=== PATIENT | female | born 1950 | race Caucasian/White ===

== ENCOUNTER → 2021-05-26 12:53 | Outpatient (CLI) | payer MEDICARE, SELFPAY ==
--- NOTE | ~2021-05-26 | CT_ITS ---
EXAMINATION: CT diagnostic chest wo con DATE: 05/26/2021 13:11 INDICATION: Solitary pulmonary nodule, prior smoker TECHNIQUE: Computed tomography (CT) of the chest was performed without intravenous contrast. The dose -length product (DLP) was 108.09 mGy-cm. Automated exposure control and iterative reconstruction tech nique were employed. COMPARISON: None FINDINGS: There is a 5 mm nodule of the left lower lobe. Mild emphysema is noted. The lungs are free of acute airspace opacities. There is no pleural effusion or pneumothorax. No pathologically enlarged thoracic lymph nodes are identified. The heart size is normal. There is a small sliding hiatal herni a. The gallbladder is surgically absent. There is severe lower thoracic spondylosis. IMPRESSION: 1. 5 mm nodule of the left lower lobe. No prior examination is available for comparison to assess int erval change. If no priors are available, follow-up CT in 12 months should be considered. Reviewed, dictated and finalized at location B. 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 5 mm nodule of the left lower lobe. No prior examination is available for co mparison to assess interval change. If no priors are available, follow-up CT in 12 months should be considered.
== END ==
PROVIDERS: PCP Internal Medicine; Visit Provider Internal Medicine
DX: M85.80 Other specified disorders of bone density and structure, unspecified site (principal); R91.1 Solitary pulmonary nodule
CPT/HCPCS: 71250

== ENCOUNTER → 2021-07-09 11:51 | Outpatient (CLI) | payer MEDICARE, SELFPAY ==
--- NOTE | ~2021-07-09 | DEXA_ITS ---
Bone Density Report Name: NILSA CHAVARRIA Age: 71 Sex: Female Ethnicity: White Date of : 1950 Indication: postmenopausal; screening for osteoporosis; prior fracture; hysterectomy; Referring Provider: RIGO, CHARISMA Study: Bone densitometry was performed. Exam Date: July 09, 2021 Accession number: [id number] Bone Density: Region BMD T-score Z-score Classification AP Spine (L1-L4) 1.009 -0.3 1.8 Normal Femoral Neck (Left) 0.823 -0.2 1.6 Normal Total Hip (Left) 0.945 0.0 1.5 Normal Femoral Neck (Right) 0.897 0.4 2.2 Normal Total Hip (Right) 0.869 -0.6 0.9 Normal Total Hip Mean 0.907 -0.3 1.2 Normal World Health Organization criteria for BMD impression classify patients as: Normal (T-score at or above -1.0), Osteopenia (T-score between -1.0 and -2.5), or Osteoporosis (T-score at or below -2.5). 10-year Fracture Risk: FRAX not reported because: All T-scores for Spine Total, Hip Total, Femoral Neck at or above -1.0 Clinical Information Provided by Patient: Has had a low trauma fracture Has used the following medications: Vitamin D, Calcium Has the following medical conditions: Hysterectomy Patient maximum height was 66.5 Menopause Age: 41 No regular weight bearing exercise Does not regularly consume dairy products Drinks caffeinated beverages Onset of menses at age 17 Number of children 3 Impression: The patient has normal bone mass. The patient has risk factors, including: previous fracture. Discussion: BONE DENSITY IS ABOVE THE MINIMUM DESIRABLE LEVEL AT ALL SKELETAL SITES TESTED. This patient?s bone mineral density is above the minimum desirable level (T-score -1.0 or better) at all sites measured. The patient should follow a healthful lifestyle (good nutrition with adequate calcium and vitamin D, and appropriate weight-bearing exercise). Follow-Up: Consider repeating this study in 5 years or sooner if there is some new clinical indication. Reported by: [facility] on 07/09/2021 12:23:00 PM. Reviewed, dictated and finalized at location AJe ASTUDILLO
== END ==
PROVIDERS: PCP Internal Medicine; Visit Provider Internal Medicine
DX: Z78.0 Asymptomatic menopausal state (principal); R91.1 Solitary pulmonary nodule
CPT/HCPCS: 77080

== ENCOUNTER → 2022-02-11 14:12 | Outpatient (CLI) | payer MEDICARE, SELFPAY ==
--- NOTE | ~2022-02-11 | CT_ITS ---
EXAMINATION: CT abdomen pelvis wo con DATE: 02/11/2022 14:37 INDICATION: Abdominal pain. Lower abdominal pain. Diarrhea. History of hysterectomy. TECHNIQUE: Computed tomography (CT) of the abdomen and pelvis was performed without intravenous contr ast. Automated exposure control and iterative reconstruction technique were employed. Exam dose: 844 .48 mGy-cm total exam DLP. COMPARISON: None. FINDINGS: The lung bases are clear. Normal heart size. No pericardial or pleural effusion. Status post cholecystectomy. No hepatic, splenic, pancreatic, and adrenal or renal space-occupying ma ss lesion is detected. No bile duct or pancreatic duct dilatation. No urinary tract calculus or hydro ureteronephrosis. There is atherosclerotic calcification of the abdominal aorta and at the origins of the celiac and ly perior mesenteric and renal arteries. No abdominal aortic aneurysm. No intraperitoneal or retroperito pushpa or pelvic mass lesion or adenopathy or ascites. There are innumerable diverticula of the sigmoid and to a lesser extent descending colon; no CT evide nce of diverticulitis. Status post appendectomy. No bowel obstruction, significant abnormal bowel wall thickening, pneumatos is or intraperitoneal free air is noted. Status post hysterectomy. The urinary bladder is unremarkable Mild bilateral fat-containing inguinal hernias. Degenerative changes of the thoracic and lumbar spine including particularly severe degenerative disc disease at T11-12. No suspicious osteolytic or osteoblastic lesions. IMPRESSION: Status post cholecystectomy, appendectomy and hysterectomy Diverticulosis of the left colon; no CT evidence of diverticulitis Reviewed, dictated and finalized at Location A. Reviewed, dictated and finalized at location B.
== END ==
PROVIDERS: PCP Internal Medicine; Visit Provider Internal Medicine
DX: R10.9 Unspecified abdominal pain (principal); K57.30 Diverticulosis of large intestine without perforation or abscess without bleeding; Z90.49 Acquired absence of other specified parts of digestive tract
CPT/HCPCS: 74176

== ENCOUNTER 2023-04-07 17:55 | Emergency (ER) | payer MEDICARE, SELFPAY ==
[2023-04-07 18:01] VITALS: BP 207/109; PULSE 79; RESP 18; TEMP 37.2; O2SAT 97
--- NOTE | 2023-04-07 18:51 | ECG_ITS ---
Measurements Intervals [place] Rate: 66 P: 46 [place]: 216 QRS: -10 QRSD: 106 T: 20 QT: 406 QTc: 427 Interpretive Statements SINUS RHYTHM WITH FIRST DEGREE AV BLOCK POSSIBLE LEFT ATRIAL ENLARGEMENT INCOMPLETE RIGHT BUNDLE BRANCH BLOCK DELAYED PRECORDIAL R/S TRANSITION BORDERLINE ECG NO PREVIOUS ECG AVAILABLE FOR COMPARISON Electronically Signed On 04-08-2023 6:16:36 CDT by Jamal Herrera D.O.
[2023-04-07 19:03] VITALS: BP 198/95; PULSE 64; RESP 16; O2SAT 99
--- NOTE | 2023-04-07 19:09 | PC.NURSE ---
This RN assumed care of patient. This RN took patient report from KEYONA Moran.
[2023-04-07 19:15] VITALS: O2SAT 99
[2023-04-07 19:34] VITALS: O2SAT 95
[2023-04-07 19:45] VITALS: O2SAT 99
--- NOTE | 2023-04-07 19:45 | ED.RECABL ---
HPI - Recheck/Abnormal Lab/Rx General Chief Complaint: Recheck/Abnormal Lab/Rx Stated Complaint: htn Time Seen by Provider: 04/07/23 19:12 Source: patient and family () Limitations: no limitations History of Present Illness HPI narrative: Patient has a 72-year-old female presented to the emergency department for elevated blood pressure. Patient also she was at her dentist's office today when she was told her blood pressure was high and this was for routine cleaning and was told that it was in the 200/100. Patient was the doctor or primary care physician was told to come in to emergency for further evaluation. Patient notes that she switched doctors approximately 8 months ago and at that time they stopped her on a thiazide diuretic and she is unsure as to what she signed the past but thinks it may have been chlorthalidone or hydrochlorothiazide patient says she does not take her blood pressure at home on a regular basis and she has been otherwise taking all her medication as prescribed in which she takes telmisartan. Patient denies any recent illness, injuries, chest pain, shortness of breath, lower extremity swelling, hematuria, decreased urine production, vision changes, confusion. Patient notes that she has overall been feeling well bone was told to come in by her primary care physician and did not feel anything of the ordinary at her dentist's office today when she was told her blood pressure was high. Patient notes that she was previously on thiazide diuretic and was taken off it because it made her urinate a lot. Related Data Home Medications Medication Instructions Recorded Confirmed atorvastatin 40 mg tablet 40 mg PO DAILY 10/19/22 chlorthalidone 25 mg tablet 25 mg PO DAILY 10/19/22 citalopram 20 mg tablet 20 mg PO DAILY 10/19/22 potassium chloride 10 mEq 10 meq PO DAILY 10/19/22 tablet,extended release (Klor-Con) telmisartan 40 mg tablet 40 mg PO DAILY 10/19/22 trazodone 50 mg tablet 50 mg PO QHS PRN 10/19/22 zinc acetate 50 mg (zinc) capsule 50 mg PO DAILY 10/19/22 (Galzin) Allergies Allergy/AdvReac Type Severity Reaction Status Date / Time No Known Allergies Allergy Unverified 10/19/22 09:44 Review of Systems Review of Systems: A 10 system review of systems was completed on the patient and is negative except for what is stated in the HPI. Nursing and ancillary documentation was reviewed. [facility] Past Medical History Medical History (Updated 04/08/23 @ 00:00 by Ino Ge) History of vaginal delivery x2 Hyperlipidemia Hypertension Surgical History Surgical History (Updated 10/19/22 @ 10:08 by Cheri Jones MA) H/O: hysterectomy History of breast surgery History of section x1 History of cholecystectomy Family History Family History (Updated 10/19/22 @ 09:53 by Cheri Jones MA) Father Alcoholism Mother Hypertension Depression Heart disease Social History Social History (Updated 10/19/22 @ 10:08 by Cheri Jones MA) Smoking status: Current every day smoker (vapes) Tobacco type: e-cigarettes/vaping Additional smoking assessment comments: she is a former cigarette smoker Alcohol intake: current Substance use: current Lack of Transportation: No Lack of Food: Never True Current Housing: I Have Housing Concerned About Future Housing: No Difficulty Paying Gas/Electric Bills: No Difficulty Paying for Meds: No Currently Unemployed: YES Education: High School Diploma/GED Living arrangements: with family Occupation/Education: retired Gender identity (if verbalized by the patient): Female Sexual Orientation (if Verbalized by the Patient): Straight or Heterosexual Spiritual care concerns: No Comments At time of signature, I have reviewed and agree with nursing past medical, surgical, social and family history unless otherwise noted. Please see the nursing chart for further information. There is no rele
[2023-04-07] MEDS: CHLORTHALIDONE 25 MG TABLET PO (20:05)
[2023-04-07 20:10] VITALS: BP 191/93
== END 2023-04-07 20:12 | disposition home or self-care (01) ==
PROVIDERS: Emergency Provider Student in an Organized Health Care Education/Training Program; PCP Physician Assistant
DX: I10 Essential (primary) hypertension (principal); E78.5 Hyperlipidemia, unspecified; F17.290 Nicotine dependence, other tobacco product, uncomplicated; Z90.710 Acquired absence of both cervix and uterus; Z90.49 Acquired absence of other specified parts of digestive tract; I44.0 Atrioventricular block, first degree; R94.31 Abnormal electrocardiogram [ECG] [EKG]; I45.10 Unspecified right bundle-branch block
CPT/HCPCS: 93005; 99283; A9270

== ENCOUNTER → 2023-06-27 12:45 | Outpatient (CLI) | payer MEDICARE, SELFPAY ==
--- NOTE | ~2023-06-27 | CT_ITS ---
CT Scan of the Chest without Contrast: Clinical Indication: Lung cancer screening, history of smoking Technique: Contiguous sections were acquired throughout the chest without intravenous contrast. Dose reduction technique was used on this scan by utilizing automated exposure control and iterative recon struction technique. The dose-length product (DLP) was 131.03 mGy-cm. COMPARISON: 05/26/2021 Findings: There is no evidence of any significant mediastinal, hilar or axillary lymphadenopathy. The mediastin al soft tissues appear normal. There is no evidence of pleural or pericardial effusion. Stable 5 mm nodule in the posterior medial left lower lobe (axial image 63). Images through the upper abdomen reveal no abnormalities. Impression: Lung RADS 2: Benign appearance. 12 month follow-up screening CT advised. Reviewed, dictated and finalized at location . 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 12 month follow-up screening CT advised.
== END ==
PROVIDERS: PCP Physician Assistant; Visit Provider Physician Assistant
DX: Z12.2 Encounter for screening for malignant neoplasm of respiratory organs (principal); Z87.891 Personal history of nicotine dependence
CPT/HCPCS: 71271

== ENCOUNTER 2024-09-04 11:17 | Emergency (ER) | payer MEDICARE, SELFPAY ==
--- NOTE | ~2024-09-04 | XR_ITS ---
EXAMINATION: XR chest 2V DATE: 09/04/2024 12:22 INDICATION: Chest and jaw pain TECHNIQUE: frontal and lateral views of the chest were obtained. COMPARISON: Chest CT dated 06/17/2023 FINDINGS: Unchanged mild linear atelectasis/scarring at the lingula and basilar right lower lobe. No new airspa ce opacities, pulmonary edema, pleural effusion or pneumothorax. The cardiomediastinal silhouette is normal. Cholecystectomy clips in the right upper quadrant.20 degrees lower thoracic levoscoliosis wit h moderate to severe spondylosis. IMPRESSION: 1. Unchanged mild discoid atelectasis/scarring at the lingula and right lower lobe. No acute cardiopu lmonary disease. Reviewed, dictated and finalized at location A. [facility] IMPRESSION: 1. Unchanged mild discoid atelectasis/scarring at the lingula and right lower l obe. No acute cardiopulmonary disease.
--- NOTE | 2024-09-04 11:18 | ECG_ITS ---
Test Date: 2024-09-04 11:33:03 Measurements Intervals [place] Rate: 80 P: 34 [place]: 196 QRS: -28 QRSD: 102 T: -4 QT: 359 QTc: 415 Interpretive Statements SINUS RHYTHM POSSIBLE LEFT ATRIAL ENLARGEMENT CANNOT R/O SEPTAL INFARCT, AGE INDETERMINATE BORDERLINE T WAVE ABNORMALITY- INFERIOR LEADS BASELINE ARTIFACT- I, II, III, AVR, AVL, AVF ABNORMAL ECG No previous ECG available for comparison Electronically Signed On 09-04-2024 12:05:17 REVENUE SPECIALIST by Jamal Herrera D.O.
--- OUTSIDE RECORDS SUMMARY | 2024-09-04 11:21 | XMS_ITS | Referral Summary ---
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 Role Phone 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 DIRECTOR BIOINFORMATICS Primary Care Provider [phone] Encounters Date Type Department Care Team Description 08/01/2024 1:05 PM [facility] Lab [facility] [address] [place] [id number] Mixed hyperlipidemia; Primary hypertension 08/01/2024 12:30 PM [facility] Office Visit [facility] [address] [place] [address] [address] [place] [address] 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, HUMBERTO Medicare annual wellness visit, subsequent (Primary Dx); Primary hypertension; Mixed hyperlipidemia; Generalized anxiety disorder; Vitamin D deficiency; Gastroesophageal reflux disease, unspecified whether esophagitis present; Vaping nicotine dependence, tobacco product; Postmenopausal 06/25/2024 3:38 PM [facility] - 06/25/2024 11:59 PM [facility] Hospital Encounter [facility] [address] [place] [address] [address] [place] [address] Screening mammogram, encounter for Discharge Disposition: Discharge to home or self care from Last 3 Months Allergies Active Allergy Reactions Criticality Noted Date Comments Adhesive Blisters High 07/31/2019 Latex Swelling Medium 12/30/2022 Medications aspirin 81 mg enteric coated tablet 1 tablet (81 mg total) 5 Active cholecalciferol (VITAMIN D-3) 1,000 unit capsule Take 1 capsule every day by oral route. 6 Active glucosamine sulfate 500 mg tablet Take by mouth Active ZINC ORAL Take by mouth Active ferrous sulfate (IRON ORAL) Take by mouth Active chlorthalidone (HYGROTON) 25 mg tabletIndications:P rimary hypertension Take 1 tablet (25 mg total) by mouth daily 4 12/15/19 25 Active potassium chloride ER (KLOR-CON) 10 mEq CR tabletIndications:P rimary hypertension Take 1 tablet/capsu le (10 mEq total) by mouth daily 4 Active traZODone (DESYREL) 50 mg tabletIndications:G eneralized anxiety disorder Take 1 tablet (50 mg total) by mouth nightly 4 Active citalopram (CeleXA) 20 mg tabletIndications:G eneralized anxiety disorder Take 1 tablet (20 mg total) by mouth daily 90 tablet 1 4 Active atorvastatin (LIPITOR) 40 mg tabletIndications:M ixed hyperlipidemia Take 1 tablet (40 mg total) by mouth daily 90 tablet 1 4 Active telmisartan (MICARDIS) 40 mg tabletIndications:P rimary hypertension Take 1 tablet (40 mg total) by mouth daily 90 tablet 1 4 Active Active Problems Problem Noted Date Diagnosed Date Vaping nicotine dependence, tobacco product 07/18 Assessment & Plan (08/03/2024 5:03 PM [facility]): Chronic, patient not interested in quitting at this time. Last chest CT completed in 09/2019, no pulmonary nodule noted at that time. Patient is not interested in repeat chest CT at this time. Medicare annual wellness visit, subsequent 06/14 Assessment & Plan (08/03/2024 5:07 PM [facility]): CBC, CMP, lipid panel ordered. Mammogram last completed: 06/2024 DEXA ordered. Colonoscopy last completed: 05/2021 repeat in 05/2031 Vaccinations: COVID, Shingrix, Prevnar, Pneumovax, and Flu vaccines UTD. Repeat wellness exam in one year. Assessment & Plan (06/16/2023 2:29 PM [facility]): Healthcare maintenance updated Assessment & Plan (06/14/2022 1:30 PM [facility]): Healthcare maintenance updated Generalized anxiety disorder 06/14/2022 Assessment & Plan (08/03/2024 5:05 PM [facility]): Chronic, controlled with Celexa 20 mg daily. Follow up yearly. Assessment & Plan (12/14/2023 6:37 AM CDT): This appears to be well controlled, continue current meds, follow-up routine Assessment & Plan (06/16/2023 2:28 PM [facility]): This appears to be well controlled, continue current meds, follow-up routine Assessment & Plan (12/30/2022 10:37 AM CDT): This is well controlled with no HI SI will continue to follow Assessment & Plan (07/01/2022 11:48 AM [facility]): Well controlled Assessment & Plan (06/14/2022 1:29 PM [facility]): This is well controlled with no SI HI, continue current meds follow-up routine Primary hypertension 06/14/2022 Assessment & Plan (08/01/2024 12:41 PM [facility]): Chronic, controlled. Patient to continue Micardis 40 mg chlorthalidone 25 mg daily. Follow up yearly. Assessment & Plan (12/14/2023 6:37 AM CDT): This is a stable chronic condition. Monitor blood pressure, call if out of parameters as we discussed. Low sodium and caffeine diet. baby asa as discussed if applicable. Diet, exercise and weight reduction. Labs as ordered. F/U routine Assessment & Plan (06/16/2023 2:28 PM [facility]): This is not controlled and after reviewing the records and talking to the patient there may have been some confusion on which meds and how much to take. We included her on the telephone and we reviewed this I wrote down exactly how she is supposed to take her med she is going to monitor her blood pressure and give me an update in a couple weeks. She is going to send her blood pressure monitor in with her during his appointment so we can check it out Assessment & Plan (04/08/2023 8:25 PM CDT): - uncontrolled - continue telmisartan - will have pt start chlorthalidone as rec by ER yesterday but will cut dose to 12.5mg daily and monitor BP, if not staying below 150 SBP will increase to 25mg daily - f/u in 1 mo or sooner prn Assessment & Plan (12/30/2022 10:38 AM CDT): This is a stable chronic condition. Monitor blood pressure, call if out of parameters as we discussed. Low sodium and caffeine diet. baby asa as discussed if applicable. Diet, exercise and weight reduction. Labs as ordered. F/U routine Assessment & Plan (07/01/2022 11:49 AM [facility]): Images from the original note were not included. This is a stable chronic condition. Monitor blood pressure, call if out of parameters as we discussed. Low sodium and caffeine diet. baby asa as discussed if applicable. Diet, exercise and weight reduction. Labs as ordered. F/U routine Assessment & Plan (06/14/2022 1:30 PM [facility]): Patient has no history of heart failure and does not have any issues with Edema. She is on 2 different diuretics and complains that she can not leave the house all morning due to having to go to the restroom. I am going to hold her Lasix get new labs she will monitor her blood pressure and I will adjust meds as needed. Mixed hyperlipidemia 06/14/2022 Assessment & Plan (08/03/2024 5:05 PM [facility]): Chronic, controlled. Patient to continue on atorvastatin 40 mg daily and low fat diet. Patient encouraged to begin daily exercise. Follow up yearly. Lab Results Component Value Date CHOL 164 08/01/2024 CHOL 158 12/15/2023 CHOL 157 06/06/2023 Lab Results Component Value Date HDL 60 08/01/2024 HDL 60 12/15/2023 HDL 57 06/06/2023 Lab Results Component Value Date LDLCALC 92 08/01/2024 LDLCALC 73 12/15/2023 LDLCALC 87 06/06/2023 Lab Results Component Value Date TRIG 61 08/01/2024 TRIG 127 12/15/2023 TRIG 65 06/06/2023 Assessment & Plan (12/14/2023 6:37 AM CDT): Patient is to continue present medications, work on diet and exercise as discussed, we did discuss the medications and potential side effects and signs and symptoms that would warrant calling office. Follow up routine. Assessment & Plan (12/30/2022 10:38 AM CDT): Patient is to continue present medications, work on diet and exercise as discussed, we did discuss the medications and potential side effects and signs and symptoms that would warrant calling office. Follow up routine. Assessment & Plan (07/01/2022 11:49 AM [facility]): Patient is to continue present medications, work on diet and exercise as discussed, we did discuss the medications and potential side effects and signs and symptoms that would warrant calling office. Follow up routine. Assessment & Plan (06/14/2022 1:29 PM [facility]): Patient is to continue present medications, work on diet and exercise as discussed, we did discuss the medications and potential side effects and signs and symptoms that would warrant calling office. Follow up routine. Vitamin D deficiency 06/14/2022 Assessment & Plan (08/03/2024 5:07 PM [facility]): Chronic, controlled with daily vitamin D supplement. Follow up yearly. Assessment & Plan (12/14/2023 6:37 AM CDT): Continue vitamin-D Assessment & Plan (06/16/2023 2:29 PM [facility]): Continue vitamin-D Assessment & Plan (12/30/2022 10:38 AM CDT): Continue vitamin-D Assessment & Plan (07/01/2022 11:42 AM [facility]): Increase to 5000 Pulmonary nodule 07/31/2019 Assessment & Plan (06/16/2023 2:29 PM FOURTH HAND): CT lung screening ordered Assessment & Plan (09/29/2019 4:36 PM CDT): CT scan of the chest shows no concerning pulmonary nodules or masses. Assessment & Plan (07/31/2019 4:21 PM [facility]): Will follow-up with a CT scan of the chest in 3 months. Smoking greater than 30 pack years 07/31/2019 Assessment & Plan (09/29/2019 4:37 PM CDT): Patient has smoked 1 pack per day for 30 years and quit smoking 9 years ago. She will be a candidate for yearly lung cancer screening with low-dose CT scan of the chest. Assessment & Plan (07/31/2019 4:22 PM [facility]): Will obtain full set of PFTs. Patient quit smoking few years ago. Gastroesophageal reflux disease 07/30/2019 Assessment & Plan (08/03/2024 4:59 PM [facility]): Chronic, controlled with diet. Assessment & Plan (12/14/2023 6:37 AM CDT): Avoid spicy, fried, greasy foods Keep hydrated with clear liquids Elevate HOB 2- 3 inches Avoid or cut down on caffeine, chocolates, and ETOH No late meals, or heavy meals after 7 pm Reg daily exercise No tight fitting clothing Stop smoking - if smoker Watch for worsening symptoms - ie diarrhea, vomiting, nausea, blood per rectum, vomiting up blood ,fever, arthralgias, rash etc. RTC prn or if new symptoms arise Pt or parent verbalizes understanding Assessment & Plan (06/16/2023 2:28 PM [facility]): Avoid spicy, fried, greasy foods Keep hydrated with clear liquids Elevate HOB 2- 3 inches Avoid or cut down on caffeine, chocolates, and ETOH No late meals, or heavy meals after 7 pm Reg daily exercise No tight fitting clothing Stop smoking - if smoker Watch for worsening symptoms - ie diarrhea, vomiting, nausea, blood per rectum, vomiting up blood ,fever, arthralgias, rash etc. RTC prn or if new symptoms arise Pt or parent verbalizes understanding Assessment & Plan (12/30/2022 10:37 AM CDT): Images from the original note were not included. Avoid spicy, fried, greasy foods Keep hydrated with clear liquids Elevate HOB 2- 3 inches Avoid or cut down on caffeines, chocolates, and ETOH No late meals, or heavy meals after 7 pm Reg daily exercise No tight fitting clothing Stop smoking - if smoker Watch for worsening symptoms - ie diarrhea, vomiting, nausea, blood per rectum, vomiting up blood ,fever, arthralgias, rash etc. RTC prn or if new symptoms arise Pt or parent verbalizes understanding Assessment & Plan (07/01/2022 11:48 AM [facility]): Images from the original note were not included. Avoid spicy, fried, greasy foods Keep hydrated with clear liquids Elevate HOB 2- 3 inches Avoid or cut down on caffeines, chocolates, and ETOH No late meals, or heavy meals after 7 pm Reg daily exercise No tight fitting clothing Stop smoking - if smoker Watch for worsening symptoms - ie diarrhea, vomiting, nausea, blood per rectum, vomiting up blood ,fever, arthralgias, rash etc. RTC prn or if new symptoms arise Pt or parent verbalizes understanding Obesity with body mass index 30 or greater 06/11 Resolved Problems Problem Noted Date Diagnosed Date Resolved Date Hair loss 06/14/2022 08/03/2024 Assessment & Plan (07/01/2022 11:50 AM [facility]): Sending to derm also with lines in nails History of severe acute resp iratory syndrome coronavirus 2 (SARS-CoV-2) disease 02/04/202208/03 Hypokalemia 05/21/2020 08/03/2024 Mixed anxiety and depressive disorder 05/30/2018 08/01/2024 Encounter for orthopedic follow-up care 03/12/2015 08/03/2024 Fracture of foot 09/21/2011 08/01/2024 Closed fracture of tibial plateau 09/21/2011 06/14/2022 Immunizations Immunization Administration Dates Next Due Influenza, Quadrivalent, Hig h Dose, Preservative Free, Intrr 04/08/2023,04/28/2022,04/02/2021,04/04 Influenza, Quadrivalent, Spl it, Intramuscular 03/31/2021,04/03/2020,04/17/2019,05/31 Influenza, Quadrivalent, Spl it, Preservative Free, Intramuscular 04/26/2019 Influenza, Trivalent, High D ose, Split, Preservative Free, Intramuscular 05/25/2024,05/30/2018,05/30/2017 Influenza, Trivalent, IM (MDV) 05/26/2016 Influenza, Unspecified 04/08/2023,04/28/2022 Moderna SARS-CoV-2 Monovalen t Vaccination (12+ YRS) 10/26/2021,06/09/2021 Pneumococcal Conjugate PCV 13 07/31/2019 Pneumococcal Polysaccharide PPV23 08/04/2020 ZOSTER Recombinant 05/03/2020,04/04/2020 Social History Tobacco Use Types Packs/Day Years Used Date Smoking Tobacco: Former Cigarettes 1 40 1 972 - 2011 Smokeless Tobacco: Never Tobacco Cessation:Counseling Given: Not Answered AUDIT-C Answer Date Recorded Q1: How often do you have a drink containing alc ohol? Monthly or less 08/10/2024 Q2: How many drinks containi ng alcohol do you have on a typical day when you are drinking? 1 or 2 08/10/2024 Q3: How often do you have si x or more drinks on one occasion? Never 08/10/2024 PHQ-2 Answer Date Recorded PHQ-2 Total Score (If total score is 3 or more points, staff should administer the PHQ-9) 0 08/01/2024 Comments No Sex and Gender Information Value Date Recorded Sex Assigned at Not on file Legal Sex Female 2:00 AM [facility] Gender Identity Not on file Sexual Orientation Not on file Last Filed Vital Signs Vital Sign Reading Time Taken Comments Blood Pressure 122/82 08/01/2024 12:17 PM [facility] Pulse 70 08/01/2024 12:17 PM [facility] Temperature 36.8 C (98.2 F) 08/01/2024 12:17 PM [facility] Respiratory Rate 20 08/01/2024 12:1 7 PM [facility] Oxygen Saturation 96% 08/01/2024 12: 17 PM [facility] Inhaled Oxygen Concentration - - Weight 85.7 kg (188 lb 14.4 oz) 025 12:17 PM [facility] Height 168.9 cm (5' 6.5 ) 08/01/2024 12 :17 PM [facility] Body Mass Index 30.04 08/01/2024 12:17 PM [facility] Plan of Treatment Not on file Procedures Procedure Name Priority Date/Time Associated Diagnosis Comments EGFR Routine 08/01/2024 1:15 PM [facility] Primary hypertension DIFFERENTIAL AUTO Routine 08/01/2024 1:1 5 PM [facility] Primary hypertension CBC WITH AUTO DIFFERENTIAL Routine 08/01/2024 1:15 PM [facility] Primary hypertension COMPREHENSIVE METABOLIC PANEL Routine 08/01/2024 1:15 PM [facility] Primary hypertension LIPID PANEL Routine 08/01/2024 1:15 PM [facility] Mixed hyperlipidemia SCREENING MAMMOGRAM BILATERAL W GUSTABO Schedule Routine, Read Routine (OP Routine) 06/25/2024 3:48 PM [facility] Screening mammogram, encounter for COLONOSCOPY Routine 05/27/2021 HEPATITIS PANEL, ACUTE Routine 07/02/2019 5:44 AM [facility] from Last 3 Months or Most Recently Relevant to Health Maintenance Results * eGFR (08/01/2024 1:15 PM [facility]) eGFR 84 >=60 mL/min/1. 73 m2 Comment: Interpretive Data Reference Interval Normal >/= 90 mL/min/1.73m2 Mildly decreased* 60 - 89 mL/min/1.73m2 Mildly to moderately decreased 45 - 59 mL/min/1.73m2 Moderately to severely decreased 30 - 44 mL/min/1.73m2 Severely decreased 15 - 29 mL/min/1.73m2 Kidney Failure < 15 mL/min/1.73m2 *Relative to young adult level Estimated glomerular filtration rate is determined by the 2020 CKD-EPI equation recommended by the National Kidney Foundation (A Unifying Approach to GFR Estimation: Recommendations of the NKF-ASK Task Force on Reassessing the Inclusion of Race in Diagnosing Kidney Disease, JASN 2020). The CKD-EPI equation should not be used for patients with unstable renal function and has not been validated in children and those over 70. Current interpretive data was last reviewed 2021. Testing performed by: [address] [address] Blood 08/01/2024 1:15 PM [facility] 08/01/2024 4:11 PM [facility] 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 NP LAB BLOOD ORDERABLES Final Res ult [facility] [address] [facility] [place] [address] * Differential, auto (08/01/2024 1:15 PM [facility]) Neutrophil abs 3.2 1.5 - 6.5 K/cumm Comment:Testing performed by : [address] [address] Imm gran abs 0.0 0.0 - 0.1 K/cumm HARSHA Comment:Testing performed by : [address] [address] Lymphocyte abs 2.0 0.8 - 3.3 K/cumm HARSHA Comment:Testing performed by : [address] [address] Monocyte abs 0.5 0.2 - 0.8 K/cumm HARSHA Comment:Testing performed by : [address] [address] Eosinophil abs 0.1 0.0 - 0.5 K/cumm [facility] Comment:Testing performed by : [address] [address] Basophil abs 0.0 0.0 - 0.1 K/cumm HARSHA Comment:Testing performed by : [address] [address] Neutrophil pct 55.4 % [facility] Comment: Interpretive Data Percent cell count reference ranges are not reported, since discordance with absolute values may lead to misinterpretation of CBC data. Current Interpretive Data was last revised on 2017. Testing performed by: [address] [address] Imm gran pct 0.3 % [facility] Comment: Interpretive Data Percent cell count reference ranges are not reported, since discordance with absolute values may lead to misinterpretation of CBC data. Current Interpretive Data was last revised on 2017. Testing performed by: [address] [address] Lymphocyte pct 33.5 % [facility] Comment: Interpretive Data Percent cell count reference ranges are not reported, since discordance with absolute values may lead to misinterpretation of CBC data. Current Interpretive Data was last revised on 2017. Testing performed by: [address] [address] Monocyte pct 9.1 % [facility] Comment: Interpretive Data Percent cell count reference ranges are not reported, since discordance with absolute values may lead to misinterpretation of CBC data. Current Interpretive Data was last revised on 2017. Testing performed by: [address] [address] Eosinophil pct 1.5 % [facility] Comment: Interpretive Data Percent cell count reference ranges are not reported, since discordance with absolute values may lead to misinterpretation of CBC data. Current Interpretive Data was last revised on 2017. Testing performed by: [address] [address] Basophil pct 0.2 % [facility] Comment: Interpretive Data Percent cell count reference ranges are not reported, since discordance with absolute values may lead to misinterpretation of CBC data. Current Interpretive Data was last revised on 2017. Testing performed by: [address] [address] Blood 08/01/2024 1:15 PM [facility] 08/01/2024 4:08 PM [facility] us 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 DIRECTOR BIOINFORMATICS LAB BLOOD ORDERABLES Final Res ult [facility] [address] [facility] [place] [address] * CBC with auto differential (08/01/2024 1:15 PM [facility]) WBC 5.9 3.8 - 9.9 K/cumm Comment:Testing performed by : [address] [address] Hgb 13.8 11.9 - 15.5 g/dL HARSHA Comment:Testing performed by : [address] [address] Hct 41.0 35.6 - 45.5 % HARSHA Comment:Testing performed by : [address] [address] Plt 249 150 - 400 K/cumm HARSHA Comment:Testing performed by : [address] [address] MPV 10.5 9.1 - 12.3 fL [facility]SHA WHATLEY Comment:Testing performed by : [address] [address] RBC 4.51 3.90 - 5.20 M/cumm [facility] WHATLEY Comment:Testing performed by : [address] [address] MCV 90.9 81.3 - 96.4 fL [facility] Comment:Testing performed by : [address] [address] MCH 30.6 27.1 - 33.3 pg HARSHA WHATLEY Comment:Testing performed by : [address] [address] MCHC 33.7 32.3 - 35.7 g/dL HARSHA WHATLEY Comment:Testing performed by : [facility], [address] [place] [address]., [address] RDW CV 13.1 11.1 - 14.9 % HARSHA WHATLEY Comment:Testing performed by : [address] [address] RDW SD 43.5 35.7 - 48.1 fL HARSHA WHATLEY Comment:Testing performed by : [address] [address] NRBC abs 0.00 0.00 - 0.01 K/cumm HARSHA WHATLEY Comment:Testing performed by : [address], [place]., [address] Blood 08/01/2024 1:15 PM [facility] 08/01/2024 4:08 PM [facility] us 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 NP LAB BLOOD ORDERABLES Final Res ult [facility] [address] [facility] [place] [address] * Lipid panel (08/01/2024 1:15 PM [facility]) Cholesterol 164 30 - 199 mg/dL Comment: Interpretive Data Ages < or = 19 years Acceptable: <170 mg/dL Borderline high: 170-199 mg/dL High: >or= 200 mg/dL Ages > or = 20 years Desirable: <200 mg/dL Borderline high: 200-239 mg/dL High: >or= 240 mg/dL Literature References: 1. Expert Panel on Integrated Guidelines for Cardiovascular Health and Risk Reduction in Children and Adolescents. Pediatrics 2011;128:S213 2. NCEP Expert Panel. Circulation 2004;110:227 Current Interpretive Data was last revised on 2018. Testing performed by: [address] [address] Triglycerides 61 <=149 mg/dL HARSHA WHATLEY Comment: Interpretive Data Ages < or = 9 years Acceptable: <75 mg/dL Borderline high: 75-99 mg/dL High: >or= 100 mg/dL Ages 10 to 20 years Acceptable: <90 mg/dL Borderline high: 90-129 mg/dL High: >or= 130 mg/dL Ages > or = 20 years Desirable: <150 mg/dL Borderline high: 150-199 mg/dL High: 200-499 mg/dL Very high: >or= 499 mg/dL Literature References: 1. Expert Panel on Integrated Guidelines for Cardiovascular Health and Risk Reduction in Children and Adolescents. Pediatrics 2011;128:S213 2. NCEP Expert Panel. Circulation 2004;110:227 Current Interpretive Data was last revised on 2018. Testing performed by: [address] [address] HDL 60 >=40 mg/dL [facility] Comment: Interpretive Data Ages < or = 19 years Acceptable: >45 mg/dL Borderline low: 40-45 mg/dL Low: <40 mg/dL Ages > or = 20 years Desirable: >or= 60 mg/dL Low: <40 mg/dL Literature References: 1. Expert Panel on Integrated Guidelines for Cardiovascular Health and Risk Reduction in Children and Adolescents. Pediatrics 2011;128:S213 2. NCEP Expert Panel. Circulation 2004;110:227 Current Interpretive Data was last revised on 2018. Testing performed by: [address] [address] LDL, calculated 92 <=129 mg/dL HARSHA Comment: Interpretive Data Ages < or = 19 years Acceptable: <110 mg/dL Borderline high: 110-129 mg/dL High: >or= 130 mg/dL Ages > or = 20 years Optimal: <100 mg/dL Near optimal: 100-129 mg/dL Borderline high: 130-159 mg/dL High: >160 mg/dL Calculated using the Akshat LDL-C estimating equation. This equation was implemented on 2024. Prior to this date LDL-C was estimated using the Friedewald equation. Literature References: 1. Expert Panel on Integrated Guidelines for Cardiovascular Health and Risk Reduction in Children and Adolescents. Pediatrics 2011;128:S213 2. NCEP Expert Panel. Circulation 2004;110:227 3. Akshat Corral al. OBI Cardiol. 2020 November 15;5(5):540-548. doi: 10.1001/[email or web address].2020.0013 Current Interpretive Data was last revised on 2024. Testing performed by: [address] [address] Non-HDL Cholesterol 104 mg/dL HARSHA Comment: Interpretive Data Ages < or = 19 years Acceptable: <120 mg/dL Borderline high: 120-144 mg/dL High: >145 mg/dL Ages > or = 20 years When triglycerides are >200 mg/dL, Non-HDL cholesterol is a secondary target of therapy with treatment goals that are 30 mg/dL greater than the LDL cholesterol target. Literature References: 1. Expert Panel on Integrated Guidelines for Cardiovascular Health and Risk Reduction in Children and Adolescents. Pediatrics 2011;128:S213 2. NCEP Expert Panel. Circulation 2004;110:227 Current Interpretive Data was last revised on 2018. Testing performed by: [address] [address] Chol/HDL ratio 3 HARSHA Comment:Testing performed by : [address] [address] Blood 08/01/2024 1:15 PM [facility] 08/01/2024 4:11 PM [facility] us 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 DIRECTOR BIOINFORMATICS LAB BLOOD ORDERABLES Final Res ult [facility] [address] [facility] [place] [address] * Comprehensive metabolic panel (08/01/2024 1:15 PM [facility]) Sodium 141 135 - 145 mmol/L Comment:Testing performed by : [address] [address] Potassium, pl 4.7 3.3 - 4.9 mmol/L HARSHA WHATLEY Comment:Testing performed by : [address] [address] Chloride 102 97 - 110 mmol/L HARSHA WHTALEY Comment:Testing performed by : [address] [address] CO2 30 22 - 32 mmol/L HARSHA WHATLEY Comment:Testing performed by : [address] [address] Anion gap 9 2 - 15 mmol/L HARSHA WHATLEY Comment:Testing performed by : [address] [address] BUN 17 6 - 25 mg/dL HARSHA Comment:Testing performed by : [address] [address] Creatinine 0.75 0.60 - 1.10 mg/dL HARSHA Comment:Testing performed by : [address] [address] Glucose 98 70 - 199 mg/dL HARSHA Comment: Interpretive Data Fasting glucose >/= 126 mg/dl is diagnostic for diabetes. Fasting is defined as no caloric intake for at least 8 hours. Fasting glucose between 100 mg/dl to 125 mg/dl is diagnostic of prediabetes. In a patient with classic symptoms of hyperglycemia or hyperglycemic crisis, a random glucose >/= 200 mg/dl is diagnostic for diabetes. In the absence of unequivocal hyperglycemia, results should be confirmed by repeat testing. The classification and Diagnosis of Diabetes Diabetes Care 202; 46: S19-S40. Current interpretive data was last revised 2022. Testing performed by: [address] [address] Calcium 10.3 8.5 - 10.3 mg/dL HARSHA Comment:Testing performed by : [address] [address] Bilirubin, total 0.8 0.1 - 1.2 mg/dL HARSHA Comment:Testing performed by : [address] [address] Protein, pl 6.8 6.5 - 8.5 g/dL HARSHA Comment:Testing performed by : [address] [address] Albumin 4.4 3.5 - 5.0 g/dL HARSHA Comment:Testing performed by : [address] [address] Alk phos 60 40 - 130 Units/L HARSHA Comment:Testing performed by : [address] [address] ALT 27 7 - 45 Units/L HARSHA Comment:Testing performed by : [address] [place] [address] AST 28 10 - 45 Units/L HARSHA WHATLEY Comment:Testing performed by : [facility], [address] [place] [address]., [address] Blood 08/01/2024 1:15 PM [facility] 08/01/2024 4:11 PM [facility] us 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 NP LAB BLOOD ORDERABLES Final Res ult HARSHA [address] [facility] [place] [address] * Screening Mammogram Bilateral W [place] (06/25/2024 3:48 PM [facility]) Anatomical Region Laterality Modality Breast Bilateral Mammography Impressions 06/25/2024 4:03 PM [facility] BI-RADS ATLAS category (overall): 1 - Negative There is no mammographic evidence of malignancy. A 1 year screening mammogram is recommended. The patient has been or will be contacted. We recommend annual screening mammography for women at average risk of breast cancer beginning at age 40, based on guidelines of the [employer] (ACR Practice Parameter for the Performance of Screening and Diagnostic Mammography) and [employer]. For women with and elevated risk of breast cancer, please refer to the ACR Practice Parameter for specific screening recommendations. The patient will be entered into a reminder system with a target due date of 1 year for her next screening exam. Narrative 06/25/2024 4:03 PM [facility] Screening Mammogram Bilateral W Gustabo: 06/25/24 The study was acquired using full field digital technology and interpreted from soft copy. 2D digital mammographic views, as well as 3D digital tomosynthesis were performed in the CC and MLO projections. This study was resulted using Computer-Aided Detection (CAD). CLINICAL: Screening mammogram, encounter for. No relevant medical history has been documented for this patient. No known family history of breast cancer. COMPARISONS: 04/06/2023 Screening Mammogram Bilateral W [place] 12/31/2021 Screening Mammogram Bilateral W [place] 2019 mamm BREAST TISSUE: The breasts are heterogeneously dense, which may obscure small masses. FINDINGS: No suspicious masses, suspicious calcifications, or other suspicious findings are seen within either breast. There has been no suspicious change. us Self Screening Mammogram IMG MAMMO PROCEDURES Fi nal Result * Colonoscopy (05/27/2021) Anatomical Region Laterality Modality Other us Historical Provider MD ENDOSCOPY PROCEDURES Sneha l Result * Hepatitis panel, acute (07/02/2019 5:44 AM [facility]) HepBsAg NONREACT NONREACTIVE [facility] Comment: [employer] using AMY (chemiluminescent immunoassay) technology. NONREACTIVE: IgM antibodies to Hepatitis B Surface antigen not detected. REACTIVE: IgM antibodies to Hepatitis B Surface antigen detected. Reactive results will be confirmed by neutralization testing. HBsAb qn <3.10 mIU/mL [facility] Comment: Siemens CentaurXP using AMY (chemiluminescent immunoassay) technology. 9.99 IU/L or less.....NONREACTIVE: IgM antibodies to Hepatitis B Surface antibody are not detected. 10.00 IU/L or greater..REACTIVE: IgM antibodies to Hepatitis B Surface antibody are detected. Hep B core IgM NONREACT NONREACTIVE [facility] Comment: Siemens CentaurXP using AMY (chemiluminescent immunoassay) technology. NONREACTIVE: IgM antibodies to Hepatitis B Core antigen not detected. EQUIVOCAL: IgM antibodies to Hepatitis B Core antigen may or may not be present. Obtain a new specimen and retest. REACTIVE: IgM antibodies to Hepatitis B Core antigen detected. Hep A IgM NONREACT NONREACTIVE [facility] Comment: Siemens CentaurXP using AMY (chemiluminescent immunoassay) technology. NONREACTIVE: IgM antibodies to Hepatitis A not detected. This does not exclude possibility of exposure to Hepatitis A or early acute infection. EQUIVOCAL:IgM antibodies to Hepatitis A may or may not be present. Suggest recollection and retest. REACTIVE: Antibodies to Hepatitis A detected. Hep C Ab NONREACT NONREACTIVE [facility] Comment: [employer] CentaurXP using AMY (chemiluminescent immunoassay) technology. NONREACTIVE: Antibodies to Hepatitis C not detected. This does not exclude early acute Hepatitis C infection, possibility of exposure to Hepatitis C, antibodies below detection limit, or to lack of antibody reactivity to the antigen used in this assay. EQUIVOCAL: Antibodies to Hepatitis C may or may not be present. Sample to be confirmed by real-time PCR method. REACTIVE: Antibodies to Hepatitis C detected.Sample to be confirmed by real-time PCR method. 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
--- OUTSIDE RECORDS SUMMARY | 2024-09-04 11:21 | XMS_ITS | Data Portability ---
Author Organization [facility], [employer] Address [address] [address] Care Team Providers Care Scalemaker Name Role Phone MARY ZHAO Grinder And Honer Operator Automatic ZHANNA SIERRA Primary Care Provider Assessment Encounter Date Assessment Date Assessment LastModified by Organization Details LastModified Time 05/22/2020 05/22/2020 Patient presente d for follow up. Studies ordered as below. Discussed plan with patient/caregiver , who expressed understanding. Follow up as noted below. [email or web address] Not available 05/22/2020 10:09:44 04/15/2021 04/15/2021 Patient presente d for follow up. Studies ordered as below. Discussed plan with patient/caregiver , who expressed understanding. Follow up as noted below. Patient presented to office today for their Medicare Annual Wellness Visit. Education was provided on healthy nutrition, including a diet rich in fruits and vegetables, minimizing simple carbohydrates, salt, and saturated fats. Encouraged regular cardiovascular exercise such as walking at least 30 minutes daily, 5 times per week. Emphasized preventive health measures and educated pt on fall prevention and community-based lifestyle interventions to help reduce health risks and promote healthy living. [email or web address] Not available 04/15/2021 14:45:16 08/03/2021 08/03/2021 Patient presente d for follow up. Studies ordered as below. Discussed plan with patient/caregiver , who expressed understanding. Follow up as noted below. Not available 08/03/2021 15:23:58 11/02/2021 11/02/2021 Patient presente d for follow up. Studies ordered as below. Discussed plan with patient/caregiver , who expressed understanding. Follow up as noted below. Not available 11/02/2021 12:46:50 Plan of Treatment Reminders Order Date Submit Date Provider Last Modified By Organization Details Last Modified Time Details Appointments None recorded. Lab CMP, serum or plasma 2021 [email or web address] Not available 13:30:14 CBC w/ auto diff 2021 HERMILA Not available 13:30:15 amylase + lipase, serum 2021 [email or web address] Not available 12:26:36 urinalysis complete, reflex culture 2021 HERMILA Not available 18:11:26 lipid panel w/ direct LDL, serum 2021 [email or web address] Not available 18:35:35 TSH, serum or plasma 2021 022 HERMILA Not available 13:50:59 CMP, serum or plasma 2021 HERMILA Not available 13:50:58 CMP, serum or plasma 2021 022 HERMILA Not available 14:12:48 CBC 2021 HERMILA Not available 14:12:48 vitamin D, 25-hydroxy , total, serum 2021 022 HERMILA Not available 14:12:49 magnesium, serum or plasma 2020 021 [email or web address] Not available 08:22:52 lipid panel w/ direct LDL, serum 2020 021 [email or web address] Not available 08:22:52 CMP, serum or plasma 2020 HERMILA Not available 11:42:30 CBC 09/29/ 2021 09/29/2 021 HERMILA Not available 11:42:29 TSH, serum or plasma 2020 HERMILA Not available 11:42:32 hemoglobin A1c, QN, blood 2020 021 HERMILA Not available 11:42:29 CMP, serum or plasma 2019 020 [email or web address] [facility], [address], [address], [place], [address], 0 09:33:08 CBC w/ auto diff 2019 020 [email or web address] [facility], [address], [address], [place], [address], 0 09:33:09 H pylori Ag, stool 2019 020 [email or web address] [facility], [address], [address], [place], [address], 0 09:33:09 vitamin D, 25-hydroxy , total, serum 2019 020 [email or web address] [facility], [address], [address], [place], [address], 0 09:33:09 lipid panel, serum 2019 020 [email or web address] [facility], [address], [address], [place], [address], 0 09:33:09 TSH, serum or plasma 2019 020 [email or web address] [facility], [address], [address], [place], [address], 0 09:33:[address] referral 2021 022 stephanie Carrizales MD, [address], [place], [address], 2 08:46:[address] referral 2020 021 stephanie Whiting MD, [address] [place], [address], 1 08:49:35 dermatolog ist referral 2020 021 stephanie [facility], [address] [facility], [place], [address], 08:49:34 gastroente rologist referral 2020 021 stephanie Mccracken MD, [address] [place], [address], 1 12:49:41 ophthalmol ogist referral 2019 020 [email or web address] Arvind Barksdale MD, [address] [place], [address], 0 09:42:02 gastroente rologist referral 2019 020 [email or web address] Mccracken MD, [address] [place], [address], 0 09:42:03 Procedures None recorded. Surgeries None recorded. Imaging CT, abdomen + pelvis, w/o contrast 2021 022 [facility], [address] Jane Serrano, [facility] [address], [place], [address], 2 19:03:33 MAMMO, screening, digital, bilateral [email or web address] Patient Access Centralized Scheduling, Centralized Scheduling, [address] [facility] , [place], [address], 2 18:35:42 bone density 2021 022 [email or web address] [facility] Patient Access Centralized Scheduling, Centralized Scheduling, [address] [facility] , [place], [address], 2 18:35:42 MAMMO, screening, digital, bilateral 2020 021 [facility], [address], [address], [place], [address], 1 08:39:42 electrocar diogram 2020 [facility], [facility], [address], [place], [address], 1 08:15:06 US, echocardio gram 2020 [facility], [facility], [address], [place], [address], 1 16:46:08 bone density [address] Imaging, 2022 Jane Serrano, [address], [place], [address], 2 19:02:03 CT, chest, w/o contrast 2020 021 [facility], [address]err[address], [address], [place], [address], 1 08:39:42 MAMMO, screening, bilateral 2019 [email or web address] Not available 0 08:46:54 [facility]car diogram [facility], [facility], [address], [place], [address], 0 14:28:56 bone density 2019 [facility], [facility], [address], [place], [address], 0 11:35:42 Medication Orders telmisarta n 80 mg tablet 2021 [facility] #[id number], [address] [place] [address], [id number], 2 13:51:35 ciclopirox 8 % topical solution 2021 [facility] #[id number], [address] [place] [address], [id number], 2 13:19:36 Wegovy 0.25 mg/0.5 mL subcutaneo us pen injector 2021 [facility] #[id number], [address] [place] [address], [id number], 2 12:22:25 metformin 500 mg tablet 2021 022 [facility] #[id number], [address] [place] [address], [id number], 2 13:08:40 chlorthali done 25 mg tablet 2019 [facility], [facility] [place], [address], 0 11:00:14 furosemide 20 mg tablet 2019 [facility], [facility] [place], [address], 0 11:00:13 telmisarta n 40 mg tablet 2019 [facility], [facility] [place], [address], 2 13:17:29 Vitamin D3 25 mcg (1,000 unit) capsule 2019 [facility], [facility] [place], [address], 0 11:00:14 atorvastat in 40 mg tablet 2019 [facility], [facility] [place], [address], 0 11:00:16 citalopram 20 mg tablet 2019 [facility], [facility] [place], [address], 0 11:00:12 trazodone 50 mg tablet 2019 INTERFACE [facility], [facility] [place], [address], 0 11:00:16 potassium chloride ER 10 mEq tablet,ext ended release(ana rt/cryst) 2019 [facility], [facility] [place], [address], 0 11:00:13 metformin 500 mg tablet 2019 [email or web address] [facility], [facility] [place], [address], 2 13:08:40 Patient TargetsNo targets recorded. Patient Instructions Encounter Date Encounter Id Patient Instructions Last Modified By Organization Details Last Modified Time 05/22/2020 [id number] mammogram: about this test [email or web address] Not available 05/22/2020 11:00:08 gastroesophageal reflux disease (GERD): care instructions [facility] Not available 05/22/2020 10:48:26 high cholesterol : care instructions mshenouda Not available 05/22/2020 10:48:26 body mass index: care instructions mshenouda Not available 05/22/2020 10:48:26 learning about healthy weight mshenouda Not available 05/22/2020 10:48:26 living will mshenouda Not available 11/2019 10:53:59 04/15/2021 [id number] mammogram: about this test mshenouda Not available 04/15/2021 15:27:51 palpitations: ca re instructions mshenouda Not available 04/15/2021 15:27:52 gastroesophageal reflux disease (GERD): care instructions mshenouda Not available 04/15/2021 15:27:52 body mass index: care instructions mshenouda Not available 04/15/2021 15:27:52 learning about healthy weight mshenouda Not available 04/15/2021 15:27:51 08/03/[id number] mammogram: about this test mshenouda Not available 08/03/2021 15:55:07 gastroesophageal reflux disease (GERD): care instructions mshenouda Not available 08/03/2021 15:55:07 hypokalemia: car e instructions mshenouda Not available 08/03/2021 15:55:07 body mass index: care instructions mshenouda Not available 08/03/2021 15:55:06 learning about healthy weight mshenouda Not available 08/03/2021 15:55:07 living will mshenouda Not available 07/18 15:49:51 11/02/2021 mammogram: about this test mshenouda Not available 11/02/2021 13:19:20 gastroesophageal reflux disease (GERD): care instructions mshenouda Not available 11/02/2021 13:19:20 body mass index: care instructions mshenouda Not available 11/02/2021 13:19:20 learning about healthy weight mshenouda Not available 11/02/2021 13:19:20 02/04/[id number] diarrhea: care instructions mshenouda Not available 02/04/2022 12:24:51 abdominal pain: care instructions mshenouda Not available 02/04/2022 12:24:51 Reason for Referral Medical Technologist Chemistry Referral for Benign hypertension Referring Physician: Zhanna Sierra, Internal Medicine, Encounter Date: 05/22/2020 Grinder And Honer Operator Automatic Referral for Screening for malignant neoplasm of colon Referring Physician: Zhanna Sierra Internal Medicine, Encounter Date: 05/22/2020 Grinder And Honer Operator Automatic Referral for Screening for malignant neoplasm of colon Referring Physician: Zhanna Sierra Internal Medicine, Encounter Date: 04/15/2021 Sap Bi Developer Referral for L ocalized eruption of skin Referring Physician: Zhanna Sierra Internal Medicine, Encounter Date: 04/15/2021 Veneer Sander Referral for Pa lpitations Referring Physician: Zhanna Sierra, Internal Medicine, Encounter Date: 04/15/2021 Security And Compliance Analyst Referral for Sc reening for malignant neoplasm of cervix Referring Physician: Zhanna Sierra Internal Medicine, Encounter Date: 08/03/2021 Results Created Date Observation Date Name Description Value Unit Range Abnormal Flag Note LastModifiedBy Organization Detail LastModifiedTime 05/26/20 20 05/26/2020 elect rocar diogr am Rate & Rhythm Not Available [facility], [facility] [address], [place], [address], 05/22/2020 10:58:31 05/26/20 20 05/26/2020 elect rocar diogr am QRS Not Available [facility] [address], [place], [address], 05/22/2020 10:58:31 05/26/20 20 05/26/2020 elect rocar diogr am [place] Interval Not Available [facility] [address], [place], [address], 05/22/2020 10:58:31 05/26/20 20 05/26/2020 elect rocar diogr am QRS Duration Not Available [facility], [facility] [address], [place], [address], 05/22/2020 10:58:31 05/26/20 20 05/26/2020 elect rocar diogr am QT Interval Not Available [facility], [facility] [address], [place], [address], 05/22/2020 10:58:31 05/26/20 20 05/26/2020 elect rocar diogr am Change from Previous EKG? Not Available [facility], [facility] [address], [place], [address], 05/22/2020 10:58:31 05/26/20 20 05/26/2020 elect rocar diogr am Date of Last EKG Not Available [facility] [address], [place], [address], 05/22/2020 10:58:31 04/16/20 21 04/16/2021 HEMOG LOBIN A1C HGBA1C 5.4 % 4.0-6. 0 Testi ng Perfo rmed at: [facility] [place] [id number] [facility], [address] [place] [address] Phone : [phone] Fax: Not Available [place] [address] [place], [address], 04/17/2021 11:42:28 04/16/20 21 04/16/2021 CBC (W/O DIFF, W/ PLT) white blood cell count 5.5 thous and/u L 3.5-10 .0 Not Available [place] [address] [place], [address], 04/17/2021 11:42:29 04/16/20 21 04/16/2021 CBC (W/O DIFF, W/ PLT) red blood cell count 4.6 christiano on/uL 3.5-5. 5 Not Available [place] [address] [place], [address], 04/17/2021 11:42:29 04/16/20 21 04/16/2021 CBC (W/O DIFF, W/ PLT) hemoglobin 13.9 g/dL 11.5-1 6.5 Not Available [place] [address] [place], [address], 04/17/2021 11:42:29 04/16/20 21 04/16/2021 CBC (W/O DIFF, W/ PLT) hematocrit 44 % 35-55 Not Available [facility] [place] [address] [place], [address], 04/17/2021 11:42:29 04/16/2004/16/2021 CBC (W/O DIFF, W/ PLT) MCH 30 pg 25-35 Not Available [facility] [place] [address] [place], [address], 04/17/2021 11:42:29 04/16/20 21 04/16/2021 CBC (W/O DIFF, W/ PLT) MCHC 32 g/dL 31-38 Not Available [facility] [place] [address] [place], [address], 04/17/2021 11:42:29 04/16/2004/16/2021 CBC (W/O DIFF, W/ PLT) MCV 96 fL 75-100 Not Available [facility] [place] [address] [place], [address], 04/17/2021 11:42:29 04/16/20 21 04/16/2021 CBC (W/O DIFF, W/ PLT) RDW-CV 14 % 11-15 Not Available [facility] [place] [address] [place], [address], 04/17/2021 11:42:29 04/16/20 21 04/16/2021 CBC (W/O DIFF, W/ PLT) platelet count 266 thous and/u L 100-40 0 Testi ng Perfo rmed at: [facility] [address] [facility], [address] [place] [address] Phone : [phone] Fax: Not Available [place] [address] [place], [address], 04/17/2021 11:42:29 04/16/20 21 04/16/2021 CMP (COMP REHEN SIVE METAB OLIC PANEL ) glucose 84 mg/dL 74-99 Not Available [facility] [place] [address] [place], [address], 04/17/2021 11:42:30 04/16/20 21 04/16/2021 CMP (COMP REHEN SIVE METAB OLIC PANEL ) urea nitrogen, blood (BUN) 17 mg/dL 8-23 Not Available [place] [address] [place], [address], 04/17/2021 11:42:30 04/16/20 21 04/16/2021 CMP (COMP REHEN SIVE METAB OLIC PANEL ) total bilirubin 0.6 mg/dL 0.0-1. 2 Not Available [place] [address] [place], [address], 04/17/2021 11:42:30 04/16/20 21 04/16/2021 CMP (COMP REHEN SIVE METAB OLIC PANEL ) total protein 7.0 g/dL 6.6-8. 7 Not Available [place] [address] [place], [address], 04/17/2021 11:42:30 04/16/20 21 04/16/2021 CMP (COMP REHEN SIVE METAB OLIC PANEL ) alanine aminotransfe rase (ALT) 21 U/L 0-33 Not Available [place] [address] [place], [address], 04/17/2021 11:42:30 04/16/20 21 04/16/2021 CMP (COMP REHEN SIVE METAB OLIC PANEL ) alkaline phosphatase 66 U/L 40-130 Not Available [facility] [place] [address] [address] [place], [address], 04/17/2021 11:42:30 04/16/20 21 04/16/2021 CMP (COMP REHEN SIVE METAB OLIC PANEL ) aspartate aminotransfe rase (AST) 22 U/L 0-32 Not Available [facility] [place] [address] [address] [place], [address], 04/17/2021 11:42:30 04/16/20 21 04/16/2021 CMP (COMP REHEN SIVE METAB OLIC PANEL ) calcium 9.9 mg/dL 8.6-10 .2 Not Available [facility] [place] [address] [address] [place], [address], 04/17/2021 11:42:30 04/16/20 21 04/16/2021 CMP (COMP REHEN SIVE METAB OLIC PANEL ) albumin 4.6 g/dL 3.5-5. 2 Not Available [facility] [place] [address] [address] [place], [address], 04/17/2021 11:42:30 04/16/20 21 04/16/2021 CMP (COMP REHEN SIVE METAB OLIC PANEL ) CO2 33 mmol/ L 23-31 high Not Available [facility] [place] [address] [place], [address], 04/17/2021 11:42:30 04/16/20 21 04/16/2021 CMP (COMP REHEN SIVE METAB OLIC PANEL ) creatinine, serum 0.7 mg/dL 0.5-0. 9 Not Available [facility] [place] [address] [address] [place], [address], 04/17/2021 11:42:30 04/16/20 21 04/16/2021 CMP (COMP REHEN SIVE METAB OLIC PANEL ) sodium, serum 143 mmol/ L 136-14 5 Not Available [facility] [place] [address] [address] [place], [address], 04/17/2021 11:42:30 04/16/20 21 04/16/2021 CMP (COMP REHEN SIVE METAB OLIC PANEL ) potassium, serum 4.2 mmol/ L 3.5-5. 1 Not Available [facility] [place] [address] [address] [place], [address], 04/17/2021 11:42:30 04/16/20 21 04/16/2021 CMP (COMP REHEN SIVE METAB OLIC PANEL ) chloride, serum 101 mmol/ L 98-107 Not Available [facility] [place] [address] [place], [address], 04/17/2021 11:42:30 04/16/20 21 04/16/2021 CMP (COMP REHEN SIVE METAB OLIC PANEL ) eGFR 87 >59 Persi stent reduc tion for 3 month s or more in an eGFR <60 mL/mi n/1.7 3 m2 defin es CKD. Patie nts with eGFR value s>/=6 0 mL/mi n/1.7 3 m2 may also have CKD if evide nce of persi stent protu niuri a is prese nt. Addit ional infor sabina strange may be found at www.k doqi. org. Not Available [facility] [place] [address] [address] [place], [address], 04/17/2021 11:42:30 04/16/20 21 04/16/2021 LIPID PANEL trigylceride s 82 mg/dL 0-150 Not Available [facility] [place] [address] [address] [place], [address], 04/17/2021 11:42:30 04/16/20 21 04/16/2021 LIPID PANEL cholesterol 178 mg/dL 0-200 Not Available [facility] [place] [address] [address] [place], [address], 04/17/2021 11:42:30 04/16/20 21 04/16/2021 LIPID PANEL uhdl 61 mg/dL 45-65 Not Available [place] [address] [place], [address], 04/17/2021 11:42:30 04/16/20 21 04/16/2021 LIPID PANEL LDL, calculated 101 mg/dL 0-100 high Not Available [place] [address] [place], [address], 04/17/2021 11:42:30 04/16/20 21 04/16/2021 LIPID PANEL LDL/HDL ratio 2 mg/dL 0-5 Not Available [place] [address] [address], [place], [address], 04/17/2021 11:42:30 04/16/20 21 04/16/2021 LIPID PANEL VLDL 16.4 mg/dL 5.0-40 .0 Not Available [place] [address] [address], [place], [address], 04/17/2021 11:42:30 04/16/20 21 04/16/2021 LIPID PANEL cholesterol/ HDL ratio 2.92 0.00-5 .00 Not Available [place] [address] [address], [place], [address], 04/17/2021 11:42:30 04/16/20 21 04/16/2021 MAGNE SIUM magnesium 2.1 mg/dL 1.6-2. 4 Not Available [place] [address] [address], [place], [address], 04/17/2021 11:42:31 04/16/20 21 04/16/2021 THYRO ID STIMU LATIN G HORMO NE (TSH) TSH 2.79 ??IU/ mL 0.27-4 .20 Not Available [place] [address] [place], [address], 04/17/2021 11:42:32 08/03/19 22 08/03/2021 CBC (W/O DIFF, W/ PLT) white blood cell count 7.1 thous and/u L 3.5-10 .0 Not Available [place] [address] [address] [place], [address], 08/04/2021 14:12:48 08/03/19 22 08/03/2021 CBC (W/O DIFF, W/ PLT) red blood cell count 4.8 christiano on/uL 3.5-5. 5 Not Available [place] [address] [address] GarciaMARY LOU [place], [address], 08/04/2021 14:12:48 08/03/19 22 08/03/2021 CBC (W/O DIFF, W/ PLT) hemoglobin 14.5 g/dL 11.5-1 6.5 Not Available [place] [address] [address] [place], [address], 08/04/2021 14:12:48 08/03/19 22 08/03/2021 CBC (W/O DIFF, W/ PLT) hematocrit 44 % 35-55 Not Available [place] [address] [address] [place], [address], 08/04/2021 14:12:48 08/03/19 22 08/03/2021 CBC (W/O DIFF, W/ PLT) MCH 31 pg 25-35 Not Available [place] [address] [address] [place], [address], 08/04/2021 14:12:48 08/03/19 22 08/03/2021 CBC (W/O DIFF, W/ PLT) MCHC 33 g/dL 31-38 Not Available [place] [address] [address] [place], [address], 08/04/2021 14:12:48 08/03/19 22 08/03/2021 CBC (W/O DIFF, W/ PLT) MCV 92 fL 75-100 Not Available [facility] [place] [address] [place], [address], 08/04/2021 14:12:48 08/03/19 22 08/03/2021 CBC (W/O DIFF, W/ PLT) RDW-CV 13 % 11-15 Not Available [facility] [place] [address] [place], [address], 08/04/2021 14:12:48 08/03/19 22 08/03/2021 CBC (W/O DIFF, W/ PLT) platelet count 293 thous and/u L 100-40 0 Testi ng Perfo rmed at: [facility] [address] [facility], [address] [place] [address] Phone : [phone] Fax: Not Available [facility] [place] [address] [place], [address], 08/04/2021 14:12:48 08/03/19 22 08/03/2021 CMP (COMP REHEN SIVE METAB OLIC PANEL ) glucose 85 mg/dL 74-99 Not Available [facility] [place] [address] [place], [address], 08/04/2021 14:12:48 08/03/19 22 08/03/2021 CMP (COMP REHEN SIVE METAB OLIC PANEL ) urea nitrogen, blood (BUN) 13 mg/dL 8-23 Not Available [facility] [place] [address] [place], [address], 08/04/2021 14:12:48 08/03/19 22 08/03/2021 CMP (COMP REHEN SIVE METAB OLIC PANEL ) total bilirubin 0.8 mg/dL 0.0-1. 2 Not Available [facility] [place] [address] [place], [address], 08/04/2021 14:12:48 08/03/19 22 08/03/2021 CMP (COMP REHEN SIVE METAB OLIC PANEL ) total protein 7.6 g/dL 6.6-8. 7 Not Available [facility] [place] [address] [place], [address], 08/04/2021 14:12:48 08/03/19 22 08/03/2021 CMP (COMP REHEN SIVE METAB OLIC PANEL ) alanine aminotransfe rase (ALT) 20 U/L 0-33 Not Available [facility] [place] [address] [address], [place], [address], 08/04/2021 14:12:48 08/03/19 22 08/03/2021 CMP (COMP REHEN SIVE METAB OLIC PANEL ) alkaline phosphatase 67 U/L 40-130 Not Available [facility] [place] [address] [place], [address], 08/04/2021 14:12:48 08/03/19 22 08/03/2021 CMP (COMP REHEN SIVE METAB OLIC PANEL ) aspartate aminotransfe rase (AST) 24 U/L 0-32 Not Available [facility] [place] [address] [address], [place], [address], 08/04/2021 14:12:48 08/03/19 22 08/03/2021 CMP (COMP REHEN SIVE METAB OLIC PANEL ) calcium 10.0 mg/dL 8.6-10 .2 Not Available [facility] [place] [address] [place], [address], 08/04/2021 14:12:48 08/03/19 22 08/03/2021 CMP (COMP REHEN SIVE METAB OLIC PANEL ) albumin 4.8 g/dL 3.5-5. 2 Not Available [facility] [place] [address] [place], [address], 08/04/2021 14:12:48 08/03/19 22 08/03/2021 CMP (COMP REHEN SIVE METAB OLIC PANEL ) CO2 31 mmol/ L 23-31 Not Available [facility] [place] [address] [address] [place], [address], 08/04/2021 14:12:48 08/03/19 22 08/03/2021 CMP (COMP REHEN SIVE METAB OLIC PANEL ) creatinine, serum 0.7 mg/dL 0.5-0. 9 Not Available [facility] [place] [address] Kristyn Garcia [place], [address], 08/04/2021 14:12:48 08/03/19 22 08/03/2021 CMP (COMP REHEN SIVE METAB OLIC PANEL ) sodium, serum 138 mmol/ L 136-14 5 Not Available [facility] [place] [address] Kristyn Garcia [place], [address], 08/04/2021 14:12:48 08/03/19 22 08/03/2021 CMP (COMP REHEN SIVE METAB OLIC PANEL ) potassium, serum 4.4 mmol/ L 3.5-5. 1 Not Available [facility] [place] [address] Kristyn GarciaMARY LOU, [address], 08/04/2021 14:12:48 08/03/19 22 08/03/2021 CMP (COMP REHEN SIVE METAB OLIC PANEL ) chloride, serum 95 mmol/ L 98-107 low Not Available [facility] [place] [address] Kristyn GarciaMARY LOU, [address], 08/04/2021 14:12:48 08/03/19 22 08/03/2021 CMP (COMP REHEN SIVE METAB OLIC PANEL ) eGFR 88 >59 Persi stent reduc tion for 3 month s or more in an eGFR <60 mL/mi n/1.7 3 m2 defin es CKD. Patie nts with eGFR value s>/=6 0 mL/mi n/1.7 3 m2 may also have CKD if evide nce of persi stent protu erica hinojosa is prese nt. Addit ional infor sabina strange may be found at www.k [email or web address] org. Not Available [facility] [place] [address] Katy GarciaMARY LOU chaudhari, [address], 08/04/2021 14:12:48 08/03/19 22 08/03/2021 VITAM IN D 25-HY DROXY vitamin D 39.2 NG/mL 30.0-9 6.0 Defic ient: <=20 ng/mL Insuf ficie nt: 21-29 ng/mL Suffi cient : >=30 ng/mL Not Available [facility] - [address], [place], [address], 08/04/2021 14:12:49 11/03/19 22 11/02/2021 CMP (COMP REHEN SIVE METAB OLIC PANEL ) glucose 85 mg/dL 74-99 Not Available [facility] (Main Location) [address] ,, [place], [address], 11/03/2021 13:50:58 11/03/19 22 11/02/2021 CMP (COMP REHEN SIVE METAB OLIC PANEL ) urea nitrogen, blood (BUN) 17 mg/dL 8-23 Not Available [facility] (Main Location) [address] ,, [place], [address], 11/03/2021 13:50:58 11/03/19 22 11/02/2021 CMP (COMP REHEN SIVE METAB OLIC PANEL ) total bilirubin 0.7 mg/dL 0.0-1. 2 Not Available [facility] (Main Location) [address] ,, [place], [address], 11/03/2021 13:50:58 11/03/19 22 11/02/2021 CMP (COMP REHEN SIVE METAB OLIC PANEL ) total protein 7.1 g/dL 6.6-8. 7 Not Available [facility] (Main Location) [address] ,, [place], [address], 11/03/2021 13:50:58 11/03/19 22 11/02/2021 CMP (COMP REHEN SIVE METAB OLIC PANEL ) alanine aminotransfe rase (ALT) 15 U/L 0-33 Not Available [facility] (Main Location) [facility] [address] ,, [place], [address], 11/03/2021 13:50:58 11/03/19 22 11/02/2021 CMP (COMP REHEN SIVE METAB OLIC PANEL ) alkaline phosphatase 66 U/L 40-130 Not Available [facility] (Main Location) [facility] [address] ,, [place], [address], 11/03/2021 13:50:58 11/03/19 22 11/02/2021 CMP (COMP REHEN SIVE METAB OLIC PANEL ) aspartate aminotransfe rase (AST) 19 U/L 0-32 Not Available [facility] (Main Location) [facility] [address] ,, [place], [address], 11/03/2021 13:50:58 11/03/19 22 11/02/2021 CMP (COMP REHEN SIVE METAB OLIC PANEL ) calcium 9.9 mg/dL 8.6-10 .2 Not Available [facility] (Main Location) [facility] [address] ,, [place], [address], 11/03/2021 13:50:58 11/03/19 22 11/02/2021 CMP (COMP REHEN SIVE METAB OLIC PANEL ) albumin 4.8 g/dL 3.5-5. 2 Not Available [facility] (Main Location) [facility] [address] ,, [place], [address], 11/03/2021 13:50:58 11/03/19 22 11/02/2021 CMP (COMP REHEN SIVE METAB OLIC PANEL ) CO2 30 mmol/ L 23-31 Not Available [facility] (Main Location) [facility] [address] ,, [place], [address], 11/03/2021 13:50:58 11/03/19 22 11/02/2021 CMP (COMP REHEN SIVE METAB OLIC PANEL ) creatinine, serum 0.6 mg/dL 0.5-0. 9 Not Available [facility] (Main Location) [address] ,, [place], [address], 11/03/2021 13:50:58 11/03/19 22 11/02/2021 CMP (COMP REHEN SIVE METAB OLIC PANEL ) sodium, serum 140 mmol/ L 136-14 5 Not Available [facility] (Main Location) [address] ,, [place], [address], 11/03/2021 13:50:58 11/03/19 22 11/02/2021 CMP (COMP REHEN SIVE METAB OLIC PANEL ) potassium, serum 4.4 mmol/ L 3.5-5. 1 Not Available [facility] (Main Location) [address] ,, [place], [address], 11/03/2021 13:50:58 11/03/19 22 11/02/2021 CMP (COMP REHEN SIVE METAB OLIC PANEL ) chloride, serum 100 mmol/ L 98-107 Not Available [facility] (Main Location) [address] ,, [place], [address], 11/03/2021 13:50:58 11/03/19 22 11/02/2021 CMP (COMP REHEN SIVE METAB OLIC PANEL ) eGFR 97 >59 Persi stent reduc tion for 3 month s or more in an eGFR <60 mL/mi n/1.7 3 m2 defin es CKD. Patie nts with eGFR value s>/=6 0 mL/mi n/1.7 3 m2 may also have CKD if evide nce of persi stent protu niuri a is prese nt. Addit ional infor matio n may be found at www.k doqi. org. Not Available [facility] (Main Location) [address] ,, [place], [address], 11/03/2021 13:50:58 11/03/19 22 11/02/2021 DLDL dldl 95 mg/dL 0-100 Not Available [facility] (Main Location) [address] ,, [place], [address], 11/03/2021 13:50:58 11/03/19 22 11/02/2021 LIPID PANEL trigylceride s 81 mg/dL 0-150 Not Available [facility] (Main Location) [address] ,, [place], [address], 11/03/2021 13:50:59 11/03/19 22 11/02/2021 LIPID PANEL cholesterol 169 mg/dL 0-200 Not Available [facility] (Main Location) [address] ,, [place], [address], 11/03/2021 13:50:59 11/03/19 22 11/02/2021 LIPID PANEL uhdl 54 mg/dL 45-65 Not Available [facility] (Main Location) [facility] ,, [place], [address], 11/03/2021 13:50:59 11/03/19 22 11/02/2021 LIPID PANEL LDL, calculated 99 mg/dL 0-100 Not Available [facility] (Main Location) [address] ,, [place], [address], 11/03/2021 13:50:59 11/03/19 22 11/02/2021 LIPID PANEL LDL, measured 95 mg/dL <99 Not Available [facility] (Main Location) [address] ,, [place], [address], 11/03/2021 13:50:59 11/03/19 22 11/02/2021 LIPID PANEL LDL/HDL ratio 2 mg/dL 0-5 Not Available [facility] (Main Location) [address] ,, [place], [address], 11/03/2021 13:50:59 11/03/19 22 11/02/2021 LIPID PANEL VLDL 16.2 mg/dL 5.0-40 .0 Not Available [facility] (Main Location) [address] ,, [place], [address], 11/03/2021 13:50:59 11/03/19 22 11/02/2021 LIPID PANEL cholesterol/ HDL ratio 3.13 0.00-5 .00 Not Available [facility] (Main Location) [facility] ,, [place], [address], 11/03/2021 13:50:59 11/03/19 22 11/02/2021 THYRO ID STIMU LATIN G HORMO NE (TSH) TSH 1.64 ?IU/m L 0.27-4 .20 Not Available [facility] (Main Location) [address] ,, [place], [address], 11/03/2021 13:50:59 02/05/20 22 02/04/2022 UA REFLE X TO CULTU RE specimen type URINE CLEAN CATCH Not Available [facility] ([place] [place], [address], 02/04/2022 18:11:26 02/05/20 22 02/04/2022 UA REFLE X TO CULTU RE color YELLOW Not Available [facility] ([place]) [place], [address], 02/04/2022 18:11:26 02/05/20 22 02/04/2022 UA REFLE X TO CULTU RE clarity CLEAR Not Available [facility] ([place]) [place], [address], 02/04/2022 18:11:26 02/05/20 22 02/04/2022 UA REFLE X TO CULTU RE specific gravity 1.033 1.001- 1.030 high Not Available [facility] (Lab) [place], [address], 02/04/2022 18:11:26 02/05/20 22 02/04/2022 UA REFLE X TO CULTU RE pH, urine 6.0 5.0-9. 0 Not Available [facility] ([facility]) [place], [address], 02/04/2022 18:11:26 02/05/20 22 02/04/2022 UA REFLE X TO CULTU RE leukocytes 250 neg abnormal Not Available [facility] (Lab) [place], [address], 02/04/2022 18:11:26 02/05/20 22 02/04/2022 UA REFLE X TO CULTU RE nitrite NEGATI VE neg normal Not Available [facility] (Lab) [place], [address], 02/04/2022 18:11:26 02/05/20 22 02/04/2022 UA REFLE X TO CULTU RE protein 30 mg/dL <30 high Not Available [facility] (Lab[facility] [place], [address], 02/04/2022 18:11:26 02/05/20 22 02/04/2022 UA REFLE X TO CULTU RE glucose NORMAL mg/dL norm normal Not Available [facility] (Lab[facility] [place], [address], 02/04/2022 18:11:26 02/05/20 22 02/04/2022 UA REFLE X TO CULTU RE ketone NEGATI VE mg/dL neg normal Not Available [facility] (Lab) [place], [address], 02/04/2022 18:11:26 02/05/20 22 02/04/2022 UA REFLE X TO CULTU RE urobilinogen 2.0 mg/dL norm abnormal Not Available [facility] (Lab) [place], [address], 02/04/2022 18:11:26 02/05/20 22 02/04/2022 UA REFLE X TO CULTU RE bilirubin NEGATI VE mg/dL neg normal Not Available [facility] (Lab) [place], [address], 02/04/2022 18:11:26 02/05/20 22 02/04/2022 UA REFLE X TO CULTU RE blood NEGATI VE neg normal Not Available [facility] (Lab) [place], [address], 02/04/2022 18:11:26 02/05/20 22 02/04/2022 UA REFLE X TO CULTU RE culture indicated SPECIM EN SETUP FOR CULTUR E Not Available [facility] (Lab) [place], [address], 02/04/2022 18:11:26 02/05/20 22 02/04/2022 UA REFLE X TO CULTU RE mucous RARE /lpf Not Available [facility] (Lab) [place], [address], 02/04/2022 18:11:26 02/05/20 22 02/04/2022 UA REFLE X TO CULTU RE WBC 13 /hpf <6 high Not Available [facility] (Lab) [place], [address], 02/04/2022 18:11:26 02/05/20 22 02/04/2022 UA REFLE X TO CULTU RE RBC 1 /hpf <6 Not Available [facility] (Lab) One [facility], [place], [address], 02/04/2022 18:11:26 02/05/20 22 02/04/2022 UA REFLE X TO CULTU RE squamous epithelial RARE /hpf Not Available [facility] (Lab) One [facility], [place], [address], 02/04/2022 18:11:26 02/05/20 22 02/04/2022 AMYLA SE, SERUM amylase, serum 45 U/L 28-100 Not Available [facility] (Main Location) [address] ,[place], [address], 02/05/2022 13:30:14 05/22/20 20 elect rocar diogr am No observ ation record ed. [facility], [facility] [address], [place], [address], 04/15/2021 15:12:43 10/10/19 21 10/09/2020 MAMMO , scree daniel, bilat eral No observ ation record ed. [facility] Not Available 2020 15:12:43 04/15/20 21 04/15/2021 elect rocar diogr am No observ ation record ed. [facility], [facility] [address], [place], [address], 08/03/2021 15:46:18 04/15/20 21 04/15/2021 , [facility] ardio gram No observ ation record ed. [facility], [facility] [address], [place], [address], 08/03/2021 15:46:18 04/16/20 21 04/15/2021 elect rocar diogr am No observ ation record ed. [facility], [facility] [address], [place], [address], 08/03/2021 15:46:18 05/14/20 21 04/22/2021 US, echoc ardio gram No observ ation record ed. [facility], [facility] [address], [place], [address], 08/03/2021 15:46:18 05/26/20 21 05/26/2021 CT, chest , w/o contr ast No observ ation record ed. [facility] [address], [place], [address], 08/03/2021 15:46:17 06/29/20 21 04/22/2021 US, echo ardio gram No observ ation record ed. [facility], [facility] [address] [facility] [address], [place], [address], 08/03/2021 15:46:17 11/03/19 22 07/09/2021 bone densi ty No observ ation record ed. [facility] [address], [place], [address], 02/04/2022 12:23:05 12/02/19 bone densi ty No observ ation record ed. [facility] Patient Access Centralized Scheduling Centralized Scheduling [address], [place], [address], 02/04/2022 12:23:39 02/12/20 22 02/11/2022 CT, abdom en + pelvi s, w/o contr ast No observ ation record ed. [facility] [address], [place], [address], 02/17/2022 12:35:05 02/25/20 22 12/31/2021 MAMMO , scree daniel, digit al, bilat eral No observ ation record ed. [facility] Patient Access Centralized Scheduling Centralized Scheduling [address] [facility] [place] [place], [address], 03/10/2022 05:54:07 Result Notes None recorded. Problems Name Problem SNOMED Code Status Onset Date Resolution Date Notes Provider Name and Address Organization Details Recorded Time Family history of coronary arteriosc lerosis 991212152 [facility] Family history of Hypertens ion 523071247 [facility] 6 23:17:01 Family history of alcoholis m 283721900 [facility] 23:17:25 Depressiv e disorder [id number] [facility] 6 23:20:47 Benign hypertens ion 06564172 [facility] 6 23:21:01 Gastroeso phageal reflux disease 944334899 [facility] 6 23:21:23 Hyperlipi demia 14100039 Completed 04/15/2021 Zhanna Sierra MD [address], [place], [address], [facility] 1 15:14:26 Osteopeni a 486241474 [facility] 6 23:23:54 Overweigh t 675206028 Active [facility] 6 23:24:05 Mixed anxiety and depressiv e disorder 002368284 Active 2017 Zhanna Sierra MD [address], [place], [address], [facility] 8 09:45:10 Body mass index 30+ - obesity 572248154 Active 2017 Zhanna Sierra MD [address], [place], [address], [facility] 8 13:29:52 History of appendect omega 787845543 Active 2018 Zhanna Sierra MD [address], [place], [address], [facility] 9 15:56:36 Solitary nodule of lung 607257238 Active [address] abd Zhanna Sierra MD [address], [place], [address], [facility] 9 22:39:30 Mixed hyperlipi demia 987531956 Active 2019 Zhanna Sierra MD [address], [place], [address], [facility] 0 10:56:50 Hypokalem ia 53293018 Active 2019 Zhanna Sierra MD [address], [place], [address], [facility] 0 10:56:56 History of SARS-CoV- 2 [id number] 220458 Active 2021 Zhanna Sierra MD [address], [place], [address], [facility] 2 12:24:42 Problem Notes None recorded. Procedures Surgical History Date Name Laterality Status Provider Name and Address Organization Details Recorded Time 05/27/20 21 Colonoscopy completed Zhanna Sierra MD [address], [place], [address], [facility] 08/05/2021 19:07:45 11/13/19 19 Appendectomy completed Zhanna Sierra MD [address], [place], [address], [facility] 11/24/2018 18:21:19 07/28/19 18 Date of Last Mammogram completed Kesha Zendejas [facility] 11/28/2017 09:23:29 03/28/20 09 Date of Last Colonoscopy completed Keshahussein Zendejas [facility] 11/28/2017 09:23:36 03/28/20 09 Colonoscopy completed Keshahussein Zendejas [facility] 11/12/2015 23:20:01 Imaging Results Imaging Date Name Status LastModified by Organization Details LastModified Time 05/22/2020 electrocardiogram completed [facility] [address], [place], [address], 04/15/2021 15:12:43 10/09/2020 MAMMO, screening, bilateral completed [facility] Information not available 04/15/2021 15:12:43 04/15/2021 electrocardiogram completed [facility] [address], [place], [address], 08/03/2021 15:46:18 04/15/2021 US, echocardiogram completed [facility] [address], [place], [address], 08/03/2021 15:46:18 04/15/2021 electrocardiogram completed [facility] [address], [place], [address], 08/03/2021 15:46:18 04/22/2021 US, echocardiogram completed [facility] [address], [place], [address], 08/03/2021 15:46:18 05/26/2021 CT, chest, w/o contrast completed [facility] [address], [place], [address], 08/03/2021 15:46:17 04/22/2021 US, echocardiogram completed [facility] [address], [place], [address], 08/03/2021 15:46:17 07/09/2021 bone density completed [facility] [address], [place], [address], 02/04/2022 12:23:05 12/01/2021 bone density completed [facility] Patient Access Centralized Scheduling Centralized Scheduling [address] [place], [address], 02/04/2022 12:23:39 02/11/2022 CT, abdomen + pelvis, w/o contrast completed [facility] [address], [place], [address], 02/17/2022 12:35:05 12/31/2021 MAMMO, screening, digital, bilateral active [facility] Patient Access Centralized Scheduling Centralized Scheduling [address], [place], [address], 03/10/2022 05:54:07 Procedure Notes None recorded. Medical Equipment None Reported. Allergies Allergen ID Allergen Name Allergen Category Reaction Reaction Severity Criticality Documentation Date Start Date Code Code System Note Provider Name and Address Organization Details Recorded Time 5289 Wellbutri n medicatio n other Not available Not available 11/26/2016 35942 RxNorm Zhanna Sierra MD [address], [place], [address] [facility] 7 10:47:12 642 Benicar medicatio n Not available Not available Not available 11/12/2015 83297 3 RxNorm Kesha Zendejas [facility], [facility] 6 23:16:03 Medications Name Sig Start Date Stop Date Status Note LastModified by Organization Details LastModified Time losartan 50 mg tablet TAKE 1 TABLET EVERY MORNING 11/27 completed Not Available Not Available Not Available Miralax 17 gram/dose oral powder TAKE DIRECTED BY THE OFFICE 08/03 completed Not Available Not Available Not Available atorvastati n 40 mg tablet TAKE 1 TABLET DAILY 2022 active Not Available Not Available Not Avai lable metformin 500 mg tablet TAKE 1 TABLET BY MOUTH TWICE DAILY AFTER MEALS 11/02 completed Not Available Not Available Not Available Augmentin 875 mg-125 mg tablet Take 1 tablet every 12 hours by oral route. 06/10 completed Not Available Not Available Not Available nystatin 100,000 unit/mL oral suspension Take 5 mL 4 times a day by oral route for 10 days. 11/27 completed Not Available Not Available Not Available clindamycin HCl 300 mg capsule Take 1 capsule every 8 hours by oral route for 10 days. 06/18 completed Not Available Not Available Not Available trazodone 50 mg tablet TAKE 1 TABLET DAILY WITH DINNER 2022 active Not Available Not Available Not Avai lable azithromyci n 250 mg tablet TAKE 2 TABLETS (500 MG) BY ORAL ROUTE ONCE DAILY FOR 1 DAY THEN 1 TABLET (250 MG) BY ORAL ROUTE ONCE DAILY FOR 4 DAYS 11/20 completed Not Available Not Available Not Available ibuprofen 800 mg tablet 03/03 completed Not Available Not Available Not Available ofloxacin 0.3 % eye drops 10/09 completed Not Available Not Available Not Available hydrocodone 5 mg-acetamin ophen 325 mg tablet 11/27 completed Not Available Not Available Not Available phentermine 15 mg capsule TAKE 1 CAPSULE BY MOUTH DAILY 05/31 completed Not Available Not Available Not Available acetaminoph en 300 mg-codeine 30 mg tablet TAKE 1 TABLET EVERY 6 HOURS NEEDED FOR PAIN 05/22 completed Not Available Not Available Not Available chlorthalid one 25 mg tablet TAKE 1/2 TABLET EVERY MORNING active Not Available Not Available No t Available ciprofloxac in 500 mg tablet TAKE 1 TABLET BY MOUTH EVERY 12 HOURS 02/23 completed Not Available Not Available Not Available omeprazole 40 mg capsule,del ayed release Take 1 capsule every day by oral route. 11/12 completed Not Available Not Available Not Available aspirin 81 mg tablet,david yed release TAKE 1 TABLET DAILY 2020 active Not Available Not Available Not Avai lable tramadol 50 mg tablet 11/28 completed Not Available Not Available Not Available triamcinolo ne acetonide 0.1 % topical cream APPLY A THIN LAYER TO THE AFFECTED AREA(S) BY TOPICAL ROUTE 2 TIMES PER DAY 10/09 completed Not Available Not Available Not Available ketorolac 0.5 % eye drops 04/15 completed Not Available Not Available Not Available ciclopirox 8 % topical solution APPLY TO THE AFFECTED AREA BY TOPICAL ROUTE ONCE DAILY PREFERABL Y AT BEDTIME OR 8 HOURS BEFORE WASHING active Not Available Not Available No t Available oxycodone-a cetaminophe n 5 mg-325 mg tablet TAKE 1 TABLET BY MOUTH EVERY 6 HOURS NEEDED FOR PAIN 08/03 completed Not Available Not Available Not Available Tessalon Perles 100 mg capsule Take 1 capsule 3 times a day by oral route. 11/27 completed Not Available Not Available Not Available amoxicillin 875 mg tablet 12/16 completed Not Available Not Available Not Available citalopram 20 mg tablet TAKE 1 TABLET EVERY DAY AT BEDTIME 2022 active Not Available Not Available Not Avai lable famotidine 20 mg tablet TK 1 T PO Q 24 H 05/22 completed Not Available Not Available Not Available prednisolon e acetate 1 % eye drops,suspe nsion 10/09 completed Not Available Not Available Not Available erythromyci n 5 mg/gram (0.5 %) eye ointment 08/03 completed Not Available Not Available Not Available telmisartan 40 mg tablet TAKE 1 TABLET DAILY 2022 active Not Available Not Available Not Avai lable ferrous sulfate 325 mg (65 mg iron) tablet Take 1 tablet every other day by oral route. 06/18 completed Not Available Not Available Not Available promethazin e 25 mg tablet TAKE 1/2 TABLET BY MOUTH EVERY 6 HOURS NEEDED FOR NAUSEA 08/03 completed Not Available Not Available Not Available telmisartan 80 mg tablet TAKE 1 TABLET BY MOUTH EVERY DAY IN THE MORNING 05/06 completed Not Available Not Available Not Available furosemide 20 mg tablet active Not Available Not Available Not Available scopolamine 1 mg over 3 days transdermal patch 02/04 completed Not Available Not Available Not Available methylpredn isolone 4 mg tablets in a dose pack FOLLOW PACKAGE DIRECTION S 02/04 completed Not Available Not Available Not Available albuterol sulfate HFA 90 mcg/actuati on aerosol inhaler Inhale 2 puffs every 4 hours by inhalatio n route as needed. 05/22 completed Not Available Not Available Not Available cefdinir 300 mg capsule TK 1 C PO BID 03/03 completed Not Available Not Available Not Available fluticasone propionate 50 mcg/actuati on nasal spray,suspe nsion [place] 1 spray every day by intranasa l route. 12/16 completed Not Available Not Available Not Available doxycycline hyclate 100 mg tablet Take 1 tablet twice a day by oral route. 12/23 completed Not Available Not Available Not Available diazepam 5 mg tablet 05/26 completed Not Available Not Available Not Available escitalopra m 10 mg tablet Take 1 tablet every day by oral route at bedtime. 05/24 completed Not Available Not Available Not Available Vitamin D3 25 mcg (1,000 unit) capsule Take 1 capsule every day by oral route. 2020 active Not Available Not Available Not Avai lable Klor-Con M15 mEq tablet,exte nded release TAKE 1 TABLET DAILY active Not Available Not Available No t Available cholestyram ine (with sugar) 4 gram powder for susp in a packet MIX AND DRINK 1 PACKET BY MOUTH TWICE DAILY NEEDED active Not Available Not Available No t Available Klor-Con M10 mEq tablet,exte nded release TAKE 1 TABLET DAILY active Not Available Not Available No t Available Mucinex DM 30 mg-600 mg tablet,exte nded release 12 hr Take 1 tablet every 12 hours by oral route. 11/28 completed Not Available Not Available Not Available Aspir-81 11/12 completed Not Available Not Available Not Available Prevnar 13 (PF) 0.5 mL intramuscul ar syringe TO BE ADMINISTE RED BY PHARMACIS T FOR IMMUNIZAT ION 12/16 completed Not Available Not Available Not Available Xarelto 10 mg tablet TAKE 1 TABLET BY MOUTH EVERY DAY 02/04 completed Not Available Not Available Not Available Qsymia 7.5 mg-46 mg capsule, extended release Take 1 capsule every day by oral route. 11/12 completed Not Available Not Available Not Available Belviq XR 20 mg tablet,exte nded release TAKE 1 TABLET BY MOUTH EVERY DAY 05/25 completed Not Available Not Available Not Available Shingrix (PF) 50 mcg/0.5 mL intramuscul ar suspension, kit 05/22 completed Not Available Not Available Not Available Fluzone High-Dose (PF) 180 mcg/0.5 mL intramuscul ar syringe 05/31 completed Not Available Not Available Not Available Fluzone Quad (PF) 60 mcg (15 mcg x 4)/0.5 mL IM syringe TO BE ADMINISTE RED BY PHARMACIS T FOR IMMUNIZAT ION 06/18 completed Not Available Not Available Not Available ID NOW COVID-19 Test Kit TEST DIRECTED TODAY 01/25 completed Not Available Not Available Not Available Fluzone High-Dose Quad (PF) 240 mcg/0.7 mL IM syringe 05/22 completed Not Available Not Available Not Available Wegovy 0.25 mg/0.5 mL subcutaneou s pen injector Inject by subcutane ous route for 28 days. 02/04 completed Not Available Not Available Not Available Paxlovid 300 mg (150 mg x 2)-100 mg tablets in a dose pack TK 2 NIRMATREL VIR TS AND 1 RITONAVIR T TOGETHER PO BID FOR 5 DAYS BID FOR 5 DAYS 02/04 completed Not Available Not Available Not Available Vitals Date Recorded Body height Respiratory rate Heart rate Body temperature Body mass index (BMI) Body weight Systolic blood pressure Diastolic blood pressure Provider Name and Address Organization Details Last Updated DateTime 0 171.45 cm 18 /min 84 /min 98.1 [degF] 33 kg/m2 27824.7 7 g 145 mm[Hg] 93 mm[Hg] [employer] [facility] 0 10:13:08 Date Recorded Body height Body mass index (BMI) Body weight Body temperature Respiratory rate Heart rate Provider Name and Address Organization Details Last Updated DateTime 1 171.45 cm 32.9 kg/m2 81495.1 7 g 97.7 [degF] 18 /min 73 /min Ivett De La Cruz [facility] 1 14:47:29 Date Recorded Systolic blood pressure Diastolic blood pressure Provider Name and Address Organization Details Last Updated DateTime 04/15/2021 131 mm[Hg] 95 mm[Hg] Zhanna Sierra MD [address], [place], [address], [facility] 04/15/2021 15:12:43 Date Recorded Body height Body mass index (BMI) Body weight Body temperature Respiratory rate Heart rate Provider Name and Address Organization Details Last Updated DateTime 2 171.45 cm 33.2 kg/m2 65173.3 6 g 97.9 [degF] 16 /min 80 /min Wendypablo Ayala [facility] 2 15:26:36 Date Recorded Systolic blood pressure Diastolic blood pressure Provider Name and Address Organization Details Last Updated DateTime 08/03/2021 133 mm[Hg] 83 mm[Hg] Zhanna Sierra MD [address], [place], [address] 08/03/2021 15:46:16 Date Recorded Body height Body mass index (BMI) Body weight Body temperature Heart rate Respiratory rate Provider Name and Address Organization Details Last Updated DateTime 2 171.45 cm 33.8 kg/m2 54145.7 3 g 98.4 [degF] 68 /min 18 /min Wendypablo Ayala [facility] 2 12:49:47 Date Recorded Systolic blood pressure Diastolic blood pressure Provider Name and Address Organization Details Last Updated DateTime 11/02/2021 133 mm[Hg] 77 mm[Hg] Zhanna Sierra MD [address], [place], [address] 11/02/2021 13:17:23 Date Recorded Body height Provider Name an d Address Organization Details Last Updated DateTime 02/04/2022 171.45 cm Wendy Ayala [facility] 02/04/2022 11:41:01 Social History Question Answer Notes LastModified by Organizat ion Details LastModified Time Tobacco Smoking Status Former Smoker Not Available [facility] 05/02/2020 03:11:41 Do You Have An Advance Directive? No Information not available 08/03/2021 Hard Of Hearing Or Deaf In One Or Both Ears? No Information not available 08/03/2021 Legally Blind In One Or Both Eyes? No Information not available 08/03/2021 What Was The Date Of Your Most Recent Tobacco Screening? 11/02/2021 Information not available 11/02/2021 Sex: Unknown Functional Status None recorded. Mental Status None recorded. Family History Relationship Description Onset Age of this Age Resolved Age Notes LastModified by Organization Details LastModified Time Father Coronary arterioscler osis [email or web address] Not available 2015 23:18:20 Mother Coronary arterioscler osis [email or web address] Not available 2015 23:18:20 Mother Essential hypertension [email or web address] Not available 23:19:27 Sister Coronary arterioscler osis [email or web address] Not available 2015 23:18:20 Sister Essential hypertension [email or web address] Not available 23:19:27 Medical History No medical history recorded. Gynecological History Statement/Question Response Date of Last Mammogram 07/28/2017 Date of Last Colonoscopy 03/28/2009 Obstetrics History GPAL:G 0 P 0 0 0 0 Immunizations Vaccine Type Date Status Note Provider Nam e and Address Organization Details Recorded Time Influenza, split virus, quadrivalent, preservative 8 completed [facility] 15:18:47 Influenza, split virus, quadrivalent, preservative 9 completed [facility] 08/03/2021 15:18:47 Pneumococcal conjugate PCV 13 0 completed [facility] 08/03/2021 15:18:47 Influenza, split virus, quadrivalent, preservative 0 completed [facility] 08/03/2021 15:18:47 zoster recombinant 0 completed Chad Callion [facility] 08/03/2021 15:18:47 COVID-19, mRNA, LNP-S, PF, 100 mcg/0.5mL dose or 50 mcg/0.25mL dose 1 completed [facility] 08/03/2021 15:18:47 Influenza, split virus, quadrivalent, preservative 1 completed Chad mane, [facility] 08/03/2021 15:18:47 COVID-19, mRNA, LNP-S, PF, 100 mcg/0.5mL dose or 50 mcg/0.25mL dose 1 completed Zhanna Sierra MD [address], [place], [address], [facility] 08/03/2021 15:44:13 COVID-19, mRNA, LNP-S, PF, 100 mcg/0.5mL dose or 50 mcg/0.25mL dose 2 completed Zhanna Sierra MD [address], [place], [address], [facility] 11/02/2021 13:12:19 Influenza, split virus, trivalent, preservative 6 completed Not Available [facility] 08/04/2019 02:27:22 Past Encounters Encounter ID Performer Location Encounter Start Date Encounter Closed Date Diagnosis/Indication Diagnosis SNOMED-CT Code Diagnosis ICD10 Code Diagnosis Note [id number] Zhanna Sierra MD [place] [employer] [facility], [facility] [address] [place] [address] 11/13/2015 15:08:08 11/13/2015 16:23:03 Benign hypertension 79716357 I10 Overweight 988364775 E66 .3 Osteopenia 962783533 M85 .80 Depressive disorder 3548 9007 F32.9 Hyperlipidemia 78937484 E78.5 Hypokalemia 98502268 E87 .6 Active or passive immunization 728354120 Z23 Viral screening 10489767 4 Z11.59 [id number] Zhanna Sierra MD [facility], [facility] [address] [place] [address] 05/26/2016 16:25:14 05/26/2016 17:13:23 Renewal of prescription 049777761 Z76.0 Benign hypertension 1072 5009 I10 Hyperlipidemia 57055123 E78.5 Depressive disorder 3548 9007 F32.9 Hypokalemia 36544568 E87 .6 Overweight 673433586 E66 .3 Osteopenia 209779425 M85 .80 Active or passive immunization 715579431 Z23 [id number] Zhanna Sierra MD [place] [employer], [facility] [address] [place] [address] 11/26/2016 10:10:25 11/26/2016 11:06:41 Benign hypertension 91900872 I10 Hyperlipidemia 07009357 E78.5 Osteopenia 422386918 M85 .80 Depressive disorder 3548 9007 F32.9 Overweight 981462726 E66 .3 Screening for malignant neoplasm of cervix 320553698 Z12.4 per pt had PAP 04/2016 Screening for malignant neoplasm of colon 714276881 Z12.11 last C scope 2008 , good for 10 years Snoring 08426329 R06.83 Active or passive immunization 105589420 Z23 [id number] Zhanna Sierra MD [facility], [facility] [address] [place] [address] 05/30/2017 10:11:47 05/30/2017 11:49:44 Sinusitis 77119640 J32.9 Benign hypertension 1072 5009 I10 Overweight 398974591 E66 .3 Osteopenia 292931803 M85 .80 Depressive disorder 3548 9007 F32.9 Hyperlipidemia 37899851 E78.5 Screening mammography 24 685666 Z12.31 Screening for malignant neoplasm of cervix 799772309 Z12.4 Active or passive immunization 207474415 Z23 Screening for malignant neoplasm of colon 129704593 Z12.11 last C scope 2008 , till 2018 [id number] Zhanna Sierra MD [employer], [facility] [address] [place] [address] 11/28/2017 08:59:54 11/28/2017 10:05:24 Benign hypertension 00328960 I10 Hyperlipidemia 70092678 E78.5 Osteopenia 787607995 M85 .80 last DEXA 05/26/16 Overweight 217758020 E66 .3 Screening mammography 24 249907 Z12.31 last mammogram 07/2017 Screening for malignant neoplasm of cervix 390021475 Z12.4 per pt had PAP 2016 Screening for malignant neoplasm of colon 299301866 Z12.11 last C scope 2008 , good till 2018 Insect bite - wound 2764 88578 T14.8XXA Active or passive immunization 272558119 Z23 [id number] Zhanna Sierra MD [place] [employer] [facility], [facility] [address] [place] [address] 05/31/2018 08:51:21 05/31/2018 09:55:43 Benign hypertension 13026309 I10 per pt had optometry eval 04/2018 Osteopenia 255793585 M85 .80 last DEXA 05/26/16 Hyperlipidemia 01326058 E78.5 last LDL 11/2017 Hypokalemia 93411614 E87 .6 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 Body mass index 30+ - obesity 867643207 Z68.32 Screening mammography 24 878837 Z12.31 last mammogram 07/2017 Screening for malignant neoplasm of cervix 333986517 Z12.4 per pt had PAP 2017 Screening for malignant neoplasm of colon 867942562 Z12.11 last C scope 2008 , till 2018 Active or passive immunization 326546357 Z23 [id number] DARRELL GRANT APN [place] [facility] [facility], [facility] [address] [place] [address] 07/25/2018 09:09:59 07/25/2018 09:56:58 Beefy red tongue 943314534 K14.8 no inhalersno new medication s - [id number] Zhanna Sierra MD [facility], [facility] [address] [place] [address] 11/27/2018 15:18:35 11/27/2018 16:13:03 Adult health examination 678641937 Z00.01 History of appendectomy 398219221 Z90.49 2 weeks ago Benign hypertension 1072 5009 I10 per pt had optometry eval 04/2018 Body mass index 30+ - obesity 815031258 Z68.32 Mixed anxi ety and depressive disorder 570815803 F41.8 No SI, No HI Gastroesop hageal reflux disease 122968472 K21.9 Osteopenia 091571599 M85 .80 last DEXA 05/31/18 Family his tory of coronary arteriosclerosis 024403099 Z82.49 last EKG 05/31/18 Hyperlipidemia 34383661 E78.5 last LDL 11/2017 Screening mammography 24 270081 Z12.31 last mammogram 07/2018 per Pt @ [facility] Screening for malignant neoplasm of cervix 637654876 Z12.4 per pt had PAP 2017 Screening for malignant neoplasm of colon 534629030 Z12.11 last C scope 2008 , good till 2019 Active or passive immunization 521332643 Z23 Impacted c erumen in right ear 6918999739 021648 H61.21 [id number] DARRELL GRANT AP[employer], [facility] [address] [place] [address] 05/25/2019 10:05:16 05/25/2019 10:31:56 Subcutaneous nodule 98850376 R22.9 just noted this am -drove from [place] the day before - lump on back of left leg - left lateral aspect of achillies - no pain in achillies no injury no redness no tenderness 9-.1/ left ankle9.0 inches right ankle [id number] Zhanna Sierra MD [employer], [facility] [address] [place] [address] 06/18/2019 12:12:29 06/18/2019 12:46:30 Benign hypertension 35540417 I10 per pt had optometry eval 04/2018 Body mass index 30+ - obesity 713437231 Z68.32 Gastroesop hageal reflux disease 009573342 K21.9 Hyperlipidemia 30464134 E78.5 last LDL 11/2017 Mixed anxi ety and depressive disorder 747089154 F41.8 No SI, No HI Osteopenia 381509454 M85 .80 last DEXA 05/31/18 Screening for malignant neoplasm of colon 110356832 Z12.11 last C scope 2008 , good till 2019 Screening mammography 24 713580 Z12.31 last mammogram 06/15/2019 per Pt @ [facility] Screening for malignant neoplasm of cervix 834338872 Z12.4 per pt had PAP 2017 Active or passive immunization 504109909 Z23 [id number] Zhanna Sierra MD [employer], [facility] [address] [place] [address] 12/17/2019 12:06:54 12/17/2019 12:29:11 Benign hypertension 64867894 I10 per pt had optometry eval 04/2018 Hypokalemia 28764082 E87 .6 Mixed anxi ety and depressive disorder 518079968 F41.8 No SI, No HI Mixed hyperlipidemia 267 742106 E78.2 last LDL 06/2019 Cough 06255909 R05 Screening mammography 24 300164 Z12.31 last mammogram 06/15/2019 per Pt @ [facility] Screening for malignant neoplasm of cervix 610701243 Z12.4 per pt had PAP 2017pt refuse Screening for malignant neoplasm of colon 152525392 Z12.11 last C scope 2008 , good till 2019 Active or passive immunization 933141033 Z23 [id number] Zhanna Sierra MD [email or web address] [address] [place] [address] 05/22/2020 10:06:43 05/22/2020 11:12:35 Adult health examination 613208153 Z00.01 Benign hypertension 1072 5009 I10 per pt had optometry eval 04/2020 Body mass index 30+ - obesity 128840110 Z68.32 education Gastroesop hageal reflux disease 987435416 K21.9 stable Hyperlipidemia 43257750 E78.5 last LDL 07/01/2019 Mixed anxi ety and depressive disorder 330440703 F41.8 No SI, No HI Osteopenia 120270909 M85 .80 last DEXA 05/31/18 Solitary n odule of lung 632839227 R91.[address] chest 09/20/19 Family his tory of coronary arteriosclerosis 463770352 Z82.49 last EKG 05/31/18 Preoperati ve cardiovascular examination 384984281 Z01.810 Cataract under [place] for surg Screening for malignant neoplasm of colon 902794192 Z12.11 last C scope 2008 , good till 2019 Screening mammography 24 868735 Z12.31 last mammogram 06/15/2019 per Pt @ [facility] Screening for malignant neoplasm of cervix 705737305 Z12.4 per pt had PAP 2017pt refuse Active or passive immunization 170061717 Z23 up to date Hypokalemia 92280701 E87 .6 [id number] Zhanna Sierra MD [email or web address] [address] [place] [address] 04/15/2021 14:40:28 04/15/2021 15:56:10 Preoperative cardiovascular examination 119899415 Z01.810 eyelid under [place] for surg Benign hypertension 1072 5009 I10 per pt had optometry eval 04/2020 Body mass index 30+ - obesity 307426460 Z68.32 education Gastroesop hageal reflux disease 004338248 K21.9 stable Mixed anxi ety and depressive disorder 507116587 F41.8 No SI, No HI Mixed hyperlipidemia 267 029981 E78.2 last LDL 06/2019 Osteopenia 158036451 M85 .88 last DEXA 05/31/18 Solitary n odule of lung 827498197 R91.[address] chest 09/20/19 Screening mammography 24 206456 Z12.31 last mammogram 06/15/2019 per Pt @ [facility] Screening for malignant neoplasm of cervix 404537952 Z12.4 per pt had PAP 2017pt refuse Screening for malignant neoplasm of colon 646923969 Z12.11 last C scope 2008 , good till 2019 Active or passive immunization 568221073 Z23 up to dateper pt had flu shot Palpitations 33412740 R0 0.2 one time Localized eruption of skin 638012130 R21 [id number] Zhanna Sierra MD [facility] [address] [place] [address] 08/03/2021 15:18:33 08/03/2021 16:08:35 Adult health examination 682096450 Z00.01 Benign hypertension 1072 5009 I10 per pt had optometry eval 1las t EKG 04/15/21 Body mass index 30+ - obesity 240649365 Z68.32 education Family his tory of coronary arteriosclerosis 130934344 Z82.49 last EKG 05/31/18 Gastroesop hageal reflux disease 345736727 K21.9 stable Hypokalemia 92327860 E87 .6 recheck Mixed anxi ety and depressive disorder 848273574 F41.8 No SI, No HI Mixed hyperlipidemia 267 912367 E78.2 last LDL 04/16/21 Osteopenia 278507243 M85 .80 last DEXA 05/2021 Solitary n odule of lung 026664793 R91.[address] chest 05/26/21 , recheck 1 year Screening mammography 24 752806 Z12.31 last mammogram 10/09/20 per Pt @ [facility] Screening for malignant neoplasm of cervix 974034448 Z12.4 per pt had PAP 2017pt refuse Screening for malignant neoplasm of colon 372457608 Z12.11 last C scope 06/2021 Active or passive immunization 770033410 Z23 up to dateper pt had flu shot [id number] Zhanna Sierra MD [employer], [employer] [address] [place] [address] 11/02/2021 12:18:55 11/02/2021 13:21:18 Benign hypertension 01077942 I10 per pt had optometry eval as t EKG 04/15/21inc rease telmisarta n to 80BP 2 weeks Body mass index 30+ - obesity 713759706 Z68.32 education Gastroesop hageal reflux disease 650913884 K21.9 stable Mixed anxi ety and depressive disorder 265504270 F41.8 No SI, No HI Mixed hyperlipidemia 267 661512 E78.2 last LDL 04/16/21 Osteopenia 102723350 M85 .80 last DEXA 05/2018 Solitary n odule of lung 868468635 R91.[address] chest 05/26/21 , recheck 1 year Onychomyco sis of toenails 663062984 B35.1 big toe Screening mammography 24 733735 Z12.31 last mammogram 10/09/20 per Pt @ [facility] Screening for malignant neoplasm of cervix 034770801 Z12.4 per pt had PAP 2017pt refuse Screening for malignant neoplasm of colon 913996369 Z12.11 last C scope 06/2021 Active or passive immunization 983226714 Z23 up to dateper pt had flu shot Advance di rective discussed with patient 223505392 Z71.89 education [id number] Zhanna Sierra MD [employer], [employer] [address] [place] [address] 02/04/2022 11:11:58 02/04/2022 12:42:51 Abdominal pain 58681802 R10.9 Diarrhea 22610925 R19.7 resolved History of SARS-CoV-2 29 80296388 93052711 Z86.16 tested +ve 01/25/22 Health Concerns Section Related Observation LastModified by Organization Detai ls LastModified Time None Recorded Concern Status LastModified by Organization Details LastModified Time None Recorded Advance Directives Directive N: Payers Encounter Date Sequence Insurance Name Policy Number Policy Mina Covered Member ID Mina Member ID Guarantor Name 05/22/2020 1 [employer] (MEDICARE REPLACEMENT HMO) [id number] Vanesa A Loehring [id number] Vanesa A Loehring 04/15/2021 1 [employer] (MEDICARE REPLACEMENT HMO) [id number] Vanesa A Loehring [id number] Vanesa A Loehring 08/03/2021 1 [employer] (MEDICARE REPLACEMENT HMO) [id number] Vanesa A Loehring [id number] Vanesa A Loehring 11/02/2021 1 [employer] (MEDICARE REPLACEMENT HMO) [id number] 1 Vanesa A Loehring [id number] Vanesa A Loehring 02/04/2022 1 [employer] (MEDICARE REPLACEMENT HMO) [id number] 1 Vanesa A Loehring [id number] Vanesa A Loehring Notes Date Note Type Note Provider Name and Address Organization Details Recorded Time 05/22/2020 text/html Hypertension F/UReported bypatient.Medications: taking medications as directed; no side effects from medication Lifestyle:regular exercise; limiting/avoiding salt; compliant with low salt diet Associated Symptoms:no dizziness; no lightheadedness; no chest pain; no shortness of breath; no palpitations; no edema; no calf pain with exertion; no headacheMedicare Annual Wellness VisitReported bypatient.Diet and Nutrition:healthy diet Fracture Risk:no history of fractures; no recent explained fracture; no sudden unexplained fractures; no previous musculoskeletal injuries Physical Activity:recent increase in physical activity; good physical condition; discussed exercise habits Depression Risk:never feels sad, empty, or tearful; no loss of interest in activities; no significant changes in weight; no sleep disturbances or insomnia; no agitation; no loss of energy; no feelings of worthlessness or guilt; no thoughts of suicide; no history of depression; no history of mood disorders Orientation:no disorientation to time; no disorientation to date; no disorientation to place Concentration and Memory:no decreased concentrating ability; no memory lapses or loss; does not forget words Speech/Motor difficulties:no speech difficulties; no difficulty expressing formulated concepts; no difficulty with fine manipulative tasks; no difficulty writing/copying; no slowed reaction time; does not knock things over when trying to pick them up Hearing:no loss of hearing; wears hearing aids Vision:no vision problems Activities of Daily Living:able to bathe with limited or no assistance; able to contol urination and bowels; able to dress with limited or no assistance; able to feed self with limited or no assistance; able to get out of chair or bed with limited or no assistance; able to groom with limited or no assistance; able to toilet with limited or no assistance Instrumental Activities of Daily Living:able to do house work with limited or no assistance; able to grocery shop with limited or no assistance; able to manage medications with limited or no assistance; able to manage money with limited or no assistance; able to prepare meals with limited or no assistance; able to use the phone with limited or no assistance Falls Risk Assessment:no frequent falls while walking; no fall in the past year; no fall since last visit; no dizziness/vertigo Home Safety:use of seatbelts; no vision or hearing loss while driving Zhanna Sierra MD [address] [address], [place], [address], [facility] 05/22/2020 11:04:31 04/15/2021 text/html Hypertension F/UReported bypatient.Medications: taking medications as directed; no side effects from medication Lifestyle:regular exercise; limiting/avoiding salt; compliant with low salt diet Associated Symptoms:no dizziness; no lightheadedness; no chest pain; no shortness of breath; no edema; no calf pain with exertion; no headache;palpitations( one episode 3 weeks ago) preop eval for eye lid surg Zhanna Sierra MD [address] [facility] [address], [place], [address], [facility] 04/15/2021 15:30:44 08/03/2021 text/html Hypertension F/UReported bypatient.Medications: taking medications as directed; no side effects from medication Lifestyle:regular exercise; limiting/avoiding salt; compliant with low salt diet Associated Symptoms:no dizziness; no lightheadedness; no chest pain; no shortness of breath; no palpitations; no edema; no calf pain with exertion; no headacheMedicare Annual Wellness VisitReported bypatient.Diet and Nutrition:healthy diet Fracture Risk:no history of fractures; no recent explained fracture; no sudden unexplained fractures; no previous musculoskeletal injuries Physical Activity:exercises on a regular basis; recent increase in physical activity; good physical condition; discussed exercise habits Depression Risk:never feels sad, empty, or tearful; no loss of interest in activities; no significant changes in weight; no sleep disturbances or insomnia; no agitation; no loss of energy; no feelings of worthlessness or guilt; no thoughts of suicide; no history of depression; no history of mood disorders Orientation:no disorientation to time; no disorientation to date; no disorientation to place Concentration and Memory:no decreased concentrating ability; no memory lapses or loss; does not forget words Speech/Motor difficulties:no speech difficulties; no difficulty expressing formulated concepts; no difficulty with fine manipulative tasks; no difficulty writing/copying; no slowed reaction time; does not knock things over when trying to pick them up Hearing:no loss of hearing; wears hearing aids Vision:no vision problems Activities of Daily Living:able to bathe with limited or no assistance; able to contol urination and bowels; able to dress with limited or no assistance; able to feed self with limited or no assistance; able to get out of chair or bed with limited or no assistance; able to groom with limited or no assistance; able to toilet with limited or no assistance Instrumental Activities of Daily Living:able to do house work with limited or no assistance; able to grocery shop with limited or no assistance; able to manage medications with limited or no assistance; able to manage money with limited or no assistance; able to prepare meals with limited or no assistance; able to use the phone with limited or no assistance Falls Risk Assessment:no frequent falls while walking; no fall in the past year; no dizziness/vertigo Home Safety:use of seatbelts; no vision or hearing loss while driving Zhanna Sierra MD [address] [place] [address] [address], [place], [address], [facility] 08/03/2021 15:56:11 11/02/2021 text/html Hypertension F/UReported bypatient.Medications: taking medications as directed; no side effects from medication Lifestyle:regular exercise; limiting/avoiding salt; compliant with low salt diet Associated Symptoms:no dizziness; no lightheadedness; no chest pain; no shortness of breath; no palpitations; no edema; no calf pain with exertion; no headacheMedicare Annual Wellness VisitReported bypatient.Falls Risk Assessment:no frequent falls while walking; no fall in the past year; no fall since last visit; no dizziness/vertigo wants another weight meds for weight Zhanna Sierra MD [address], [place], [address], [facility] 11/02/2021 13:19:37 02/04/2022 text/html Hypertension F/UReported bypatient.Medications: taking medications as directed; no side effects from medication Lifestyle:regular exercise; limiting/avoiding salt; compliant with low salt diet Associated Symptoms:no dizziness; no lightheadedness; no chest pain; no shortness of breath; no palpitations; no edema; no calf pain with exertion; no headache I have explained the option of participating in a telephone or video visit during the COVID-19 public health emergency to the patient. After being given an opportunity to ask questions about and discuss this type of visit, the patient verbally consented to proceeding with the telephone/video visit. The patient understands that this service replaces an office visit and they may be billed and/or responsible for any applicable co-payments.tested +ve for COVID , No SOB , No Coughstill have diarrhea and lower abd pain , No N/V Zhanna Sierra MD [address], [place], [address], [facility] 02/04/2022 12:25:40 OBGyn Episode No OBEpisode recorded.
--- OUTSIDE RECORDS SUMMARY | 2024-09-04 11:21 | XMS_ITS | Clinical Summary ---
Author Organization [facility] [address] [facility] Address [address] [place] [address] Care Team Providers Care Ecommerce Marketing Specialist Name Role Phone 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 NP Primary Care Provider [phone] Allergies Active Allergy Reactions Criticality Noted Date [...] 07/18 Assessment & Plan (08/03/2024 5:03 PM LAUNDRY MANAGER): Chronic, patient not interested in quitting at this time. Last chest CT completed in 09/2019, no pulmonary nodule noted at that time. Patient is not interested in repeat chest CT at this time. Medicare annual wellness visit, subsequent 06/14 Assessment & Plan (08/03/2024 5:07 PM LAUNDRY MANAGER): CBC, CMP, lipid panel ordered. Mammogram last completed: 06/2024 DEXA ordered. Colonoscopy last completed: 05/2021 repeat in 05/2031 Vaccinations: COVID, Shingrix, Prevnar, Pneumovax, and Flu vaccines UTD. Repeat wellness exam in one year. Assessment & Plan (06/16/2023 2:29 PM LAUNDRY MANAGER): Healthcare maintenance updated Assessment & Plan (06/14/2022 1:30 PM LAUNDRY MANAGER): Healthcare maintenance updated Generalized anxiety disorder 06/14/2022 Assessment & Plan (08/03/2024 5:05 PM LAUNDRY MANAGER): Chronic, controlled with Celexa 20 mg daily. Follow up yearly. Assessment & Plan (12/14/2023 6:37 AM CDT): This appears to be well controlled, continue current meds, follow-up routine Assessment & Plan (06/16/2023 2:28 PM LAUNDRY MANAGER): This appears to be well controlled, continue current meds, follow-up routine Assessment & Plan (12/30/2022 10:37 AM CDT): This is well controlled with no HI SI will continue to follow Assessment & Plan (07/01/2022 11:48 AM LAUNDRY MANAGER): Well controlled Assessment & Plan (06/14/2022 1:29 PM LAUNDRY MANAGER): This is well controlled with no SI HI, continue current meds follow-up routine Primary hypertension 06/14/2022 Assessment & Plan (08/01/2024 12:41 PM LAUNDRY MANAGER): Chronic, controlled. Patient to continue Micardis 40 [...] routine Assessment & Plan (06/16/2023 2:28 PM LAUNDRY MANAGER): This is not controlled and after reviewing [...] routine Assessment & Plan (07/01/2022 11:49 AM LAUNDRY MANAGER): Images from the original note were not included. This is a stable chronic condition. Monitor blood pressure, call if out of parameters as we discussed. Low sodium and caffeine diet. baby asa as discussed if applicable. Diet, exercise and weight reduction. Labs as ordered. F/U routine Assessment & Plan (06/14/2022 1:30 PM LAUNDRY MANAGER): Patient has no history of heart failure [...] 06/14/2022 Assessment & Plan (08/03/2024 5:05 PM LAUNDRY MANAGER): Chronic, controlled. Patient to continue on atorvastatin [...] routine. Assessment & Plan (07/01/2022 11:49 AM LAUNDRY MANAGER): Patient is to continue present medications, work on diet and exercise as discussed, we did discuss the medications and potential side effects and signs and symptoms that would warrant calling office. Follow up routine. Assessment & Plan (06/14/2022 1:29 PM LAUNDRY MANAGER): Patient is to continue present medications, work on diet and exercise as discussed, we did discuss the medications and potential side effects and signs and symptoms that would warrant calling office. Follow up routine. Vitamin D deficiency 06/14/2022 Assessment & Plan (08/03/2024 5:07 PM LAUNDRY MANAGER): Chronic, controlled with daily vitamin D supplement. Follow up yearly. Assessment & Plan (12/14/2023 6:37 AM CDT): Continue vitamin-D Assessment & Plan (06/16/2023 2:29 PM LAUNDRY MANAGER): Continue vitamin-D Assessment & Plan (12/30/2022 10:38 AM CDT): Continue vitamin-D Assessment & Plan (07/01/2022 11:42 AM LAUNDRY MANAGER): Increase to 5000 Pulmonary nodule 07/31/2019 Assessment & Plan (06/16/2023 2:29 PM LAUNDRY MANAGER): CT lung screening ordered Assessment & Plan (09/29/2019 4:36 PM CDT): CT scan of the chest shows no concerning pulmonary nodules or masses. Assessment & Plan (07/31/2019 4:21 PM LAUNDRY MANAGER): Will follow-up with a CT scan of [...] chest. Assessment & Plan (07/31/2019 4:22 PM LAUNDRY MANAGER): Will obtain full set of PFTs. Patient quit smoking few years ago. Gastroesophageal reflux disease 07/30/2019 Assessment & Plan (08/03/2024 4:59 PM LAUNDRY MANAGER): Chronic, controlled with diet. Assessment & Plan [...] understanding Assessment & Plan (06/16/2023 2:28 PM LAUNDRY MANAGER): Avoid spicy, fried, greasy foods Keep hydrated [...] understanding Assessment & Plan (07/01/2022 11:48 AM LAUNDRY MANAGER): Images from the original note were not [...] 08/03/2024 Assessment & Plan (07/01/2022 11:50 AM LAUNDRY MANAGER): Sending to derm also with lines in nails History of severe acute resp iratory syndrome coronavirus 2 (SARS-CoV-2) disease 02/04/202208/03 Hypokalemia 05/21/2020 08/03/2024 Mixed anxiety and depressive disorder 05/30/2018 08/01/2024 Encounter for orthopedic follow-up care 03/12/2015 08/03/2024 Fracture of foot 09/21/2011 08/01/2024 Closed fracture of tibial plateau 09/21/2011 06/14/2022 Encounters Date Type Department Care Team Description 08/01/2024 1:05 PM LAUNDRY MANAGER Lab [facility] [address] [place] [id number] Mixed hyperlipidemia; Primary hypertension 08/01/2024 12:30 PM LAUNDRY MANAGER Office Visit [facility] [address] [place] [address] [address] [place] [address] 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 NP Medicare annual wellness visit, subsequent (Primary Dx); Primary hypertension; Mixed hyperlipidemia; Generalized anxiety disorder; Vitamin D deficiency; Gastroesophageal reflux disease, unspecified whether esophagitis present; Vaping nicotine dependence, tobacco product; Postmenopausal 06/25/2024 3:38 PM LAUNDRY MANAGER - 06/25/2024 11:59 PM LAUNDRY MANAGER Hospital Encounter [facility] [address] Breast [facility] [address] [address] Screening mammogram, encounter for Discharge Disposition: Discharge to home or self care from Last 3 Months Immunizations Immunization Administration Dates Next Due Influenza, [...] Pneumococcal Polysaccharide PPV23 08/04/2020 ZOSTER Recombinant 05/03/2020,04/04/2020 Surgical History Surgery Date Site/Laterality Comments CHOLECYSTECTOMY APPENDECTOMY HYSTERECTOMY BREAST BIOPSY Left BREAST BIOPSY Left BREAST BIOPSY Left Medical History Medical History Date Comments Pneumonia Pulmonary nodule Pneumonia History of tobacco use Hypertension Family History Medical History Relation Name Comments Heart disease Father Heart disease Father's Brother Heart disease Father's Sister Heart disease Mother Heart disease Mother's Brother Heart disease Mother's Sister Relation Name Status Comments Father Father's Brother Father's Sister Mother Mother's Brother Mother's Sister Social History Tobacco Use Types Packs/Day Years Used Date Smoking Tobacco: Former Cigarettes 1 40 1 - 2011 Smokeless Tobacco: Never Tobacco Cessation:Counseling [...] on file Legal Sex Female 2:00 AM LAUNDRY MANAGER Gender Identity Not on file Sexual Orientation Not on file Obstetrics History Para Term AB IAB SAB Ectopic Multiple Livin g Live Births 3 3 3 Date Outcome GA Total Labor Labor/3rd Weight Sex Type Anes PTL Lis A1 A5 Name Clin Term Term Term Last Filed Vital Signs Vital Sign Reading Time Taken Comments Blood Pressure 122/82 08/01/2024 12:17 PM LAUNDRY MANAGER Pulse 70 08/01/2024 12:17 PM LAUNDRY MANAGER Temperature 36.8 C (98.2 F) 08/01/2024 12:17 PM LAUNDRY MANAGER Respiratory Rate 20 08/01/2024 12:1 7 PM LAUNDRY MANAGER Oxygen Saturation 96% 08/01/2024 12: 17 PM LAUNDRY MANAGER Inhaled Oxygen Concentration - - Weight 85.7 kg (188 lb 14.4 oz) 025 12:17 PM LAUNDRY MANAGER Height 168.9 cm (5' 6.5 ) 08/01/2024 12 :17 PM LAUNDRY MANAGER Body Mass Index 30.04 08/01/2024 12:17 PM LAUNDRY MANAGER Plan of Treatment Health Maintenance Due Date Last Done Comments Hepatitis B Screening 1968 Lung Cancer Screening 2001 Covid-19 Vaccine ( season) 2024 05/25/2024, 04/28/2022, 10/26/2021, Additional history exists Breast Cancer Screening-Mammogram 06/25/2025 06/25/2024, 04/06/2023, 12/31/2021, Additional history exists Osteoporosis Screening-Bone Density Scan 07/24/2025 11/02/2021, 04/15/2021, 05/22/2020, Additional history exists Postponed from 11/03/2023 (Patient declined, but will receive in the future) Depression Screening 08/01/2025 08/01/2024, 06/16/2023, 06/14/2022 Fall Risk Assessment 08/01/2025 08/01/2024, 06/16/2023, 06/14/2022 Well Visit 65+ 08/01/2025 08/01/2024, 05/20, 06/14/2022 Colon Cancer Screening-Colonoscopy 05/27/2031 05/27/2021 Hepatitis C Screening Completed 07/02/2019 Zoster Vaccine Completed 05/03/2020, 04/04/2020 Pneumococcal vaccine 65+ Completed 08/04/2020, 07/18 Colon Cancer Screening-CT Colonography Discontinued 05/27/2021 Colon Cancer Screening-DNA Stool Discontinued 05/27/2021 Colon Cancer Screening-FIT Discontinued 05/27/2021 Colon Cancer Screening-Sigmoidoscopy Discontinued 05/27/2021 Influenza Vaccine Completed 05/25/2024, , 04/08/2023, Additional history exists DTaP/Tdap/Td Vaccine Discontinued Procedures Procedure Name Priority Date/Time Associated Diagnosis Comments EGFR Routine 08/01/2024 1:15 PM LAUNDRY MANAGER Primary hypertension DIFFERENTIAL AUTO Routine 08/01/2024 1:1 5 PM LAUNDRY MANAGER Primary hypertension CBC WITH AUTO DIFFERENTIAL Routine 08/01/2024 1:15 PM LAUNDRY MANAGER Primary hypertension COMPREHENSIVE METABOLIC PANEL Routine 08/01/2024 1:15 PM LAUNDRY MANAGER Primary hypertension LIPID PANEL Routine 08/01/2024 1:15 PM LAUNDRY MANAGER Mixed hyperlipidemia SCREENING MAMMOGRAM BILATERAL W EBENEZER Schedule Routine, Read Routine (OP Routine) 06/25/2024 3:48 PM LAUNDRY MANAGER Screening mammogram, encounter for COLONOSCOPY Routine 05/27/2021 HEPATITIS PANEL, ACUTE Routine 07/02/2019 5:44 AM LAUNDRY MANAGER from Last 3 Months or Most Recently Relevant to Health Maintenance Results * eGFR (08/01/2024 1:15 PM LAUNDRY MANAGER) eGFR 84 >=60 mL/min/1. 73 m2 Comment: [...] was last reviewed 2021. Testing performed by: [address] [address] Blood 08/01/2024 1:15 PM LAUNDRY MANAGER 08/01/2024 4:11 PM LAUNDRY MANAGER us 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 NP LAB BLOOD ORDERABLES Final Res ult HARSHA [address] [facility] Department [place] [address] * Differential, auto (08/01/2024 1:15 PM LAUNDRY MANAGER) Pathologist [facility] Neutrophil abs 3.2 1.5 - 6.5 K/cumm Comment:Testing performed by : [address] [address] Imm gran abs 0.0 0.0 - 0.1 K/cumm HARSHA Comment:Testing performed by : [address] [address] Lymphocyte abs 2.0 0.8 - 3.3 K/cumm HARSHA Comment:Testing performed by : [address] [address] Monocyte abs 0.5 0.2 - 0.8 K/cumm HARSHA Comment:Testing performed by : [address] [address] Eosinophil abs 0.1 0.0 - 0.5 K/cumm HARSHA Comment:Testing performed by : [address] [address] Basophil abs 0.0 0.0 - 0.1 K/cumm HARSHA Comment:Testing performed by : [address] [address] Neutrophil pct 55.4 % [facility] Comment: Interpretive Data Percent cell count reference ranges are not reported, since discordance with absolute values may lead to misinterpretation of CBC data. Current Interpretive Data was last revised on 2017. Testing performed by: [address] [address] Imm gran pct 0.3 % [facility] Comment: Interpretive Data Percent cell count reference ranges are not reported, since discordance with absolute values may lead to misinterpretation of CBC data. Current Interpretive Data was last revised on 2017. Testing performed by: [address] [address] Lymphocyte pct 33.5 % [facility] Comment: Interpretive Data Percent cell count reference ranges are not reported, since discordance with absolute values may lead to misinterpretation of CBC data. Current Interpretive Data was last revised on 2017. Testing performed by: [address] [address] Monocyte pct 9.1 % [facility] Comment: Interpretive Data Percent cell count reference ranges are not reported, since discordance with absolute values may lead to misinterpretation of CBC data. Current Interpretive Data was last revised on 2017. Testing performed by: [address] [address] Eosinophil pct 1.5 % HARSHA Comment: Interpretive Data Percent cell count reference ranges are not reported, since discordance with absolute values may lead to misinterpretation of CBC data. Current Interpretive Data was last revised on 2017. Testing performed by: [address] [address] Basophil pct 0.2 % HARSHA Comment: Interpretive Data Percent cell count reference ranges are not reported, since discordance with absolute values may lead to misinterpretation of CBC data. Current Interpretive Data was last revised on 2017. Testing performed by: [address] [address] Blood 08/01/2024 1:15 PM LAUNDRY MANAGER 08/01/2024 4:08 PM LAUNDRY MANAGER us 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 [address] LAB BLOOD ORDERABLES Final Res ult HARSHA [address] [facility] Department of Laboratories [place], [place] [id number] * CBC with auto differential (08/01/2024 1:15 PM LAUNDRY MANAGER) WBC 5.9 3.8 - 9.9 K/cumm Comment:Testing performed by : [address] [address] Hgb 13.8 11.9 - 15.5 g/dL HARSHA Comment:Testing performed by : [address] [address] Hct 41.0 35.6 - 45.5 % HARSHA Comment:Testing performed by : [address] [address] Plt 249 150 - 400 K/cumm HARSHA Comment:Testing performed by : [address] [address] MPV 10.5 9.1 - 12.3 fL HARSHA Comment:Testing performed by : [address] [address] RBC 4.51 3.90 - 5.20 M/cumm HARSHA [place]LEY Comment:Testing performed by : [address] [address] MCV 90.9 81.3 - 96.4 fL HARSHA [place] Comment:Testing performed by : [address] [address] MCH 30.6 27.1 - 33.3 pg HARSHA [place] Comment:Testing performed by : [address] [address] MCHC 33.7 32.3 - 35.7 g/dL HARSHA [place] Comment:Testing performed by : [address] [address] RDW CV 13.1 11.1 - 14.9 % HARSHA [place] Comment:Testing performed by : [address] [address] RDW SD 43.5 35.7 - 48.1 fL HARSHA [place] Comment:Testing performed by : [address] [address] NRBC abs 0.00 0.00 - 0.01 K/cumm HARSHA [place] Comment:Testing performed by : [address] [address] Blood 08/01/2024 1:15 PM LAUNDRY MANAGER 08/01/2024 4:08 PM LAUNDRY MANAGER 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 [address] LAB BLOOD ORDERABLES Final Res ult HARSHA [address] [facility] Department of Laboratories [place], [place] [id number] * Lipid panel (08/01/2024 1:15 PM LAUNDRY MANAGER) Cholesterol 164 30 - 199 mg/dL Comment: [...] last revised on 2018. Testing performed by: [address] [address] Triglycerides 61 <=149 mg/dL HARSHA [place] Comment: [...] last revised on 2018. Testing performed by: [address] [address] HDL 60 >=40 mg/dL HARSHA Comment: Interpretive Data Ages < [...] last revised on 2018. Testing performed by: [address] [address] LDL, calculated 92 <=129 mg/dL HARSHA Comment: [...] NCEP Expert Panel. Circulation 2004;110:227 3. Akshat Mead et al. OBI Cardiol. 2020 November 15;5(5):540-548. doi: 10.1001/jamacardio.2020.0013 Current Interpretive Data was last revised on 2024. Testing performed by: [address] [address] Non-HDL Cholesterol 104 mg/dL HARSHA Comment: Interpretive [...] last revised on 2018. Testing performed by: [address] [address] Chol/HDL ratio 3 HARSHA Comment:Testing performed by : [address] [address] Blood 08/01/2024 1:15 PM LAUNDRY MANAGER 08/01/2024 4:11 PM LAUNDRY MANAGER us 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 NP LAB BLOOD ORDERABLES Final Res ult HARSHA [address] [facility] Department [place] [address] * Comprehensive metabolic panel (08/01/2024 1:15 PM LAUNDRY MANAGER) Sodium 141 135 - 145 mmol/L Comment:Testing performed by : [address] [address] Potassium, pl 4.7 3.3 - 4.9 mmol/L HARSHA [place] Comment:Testing performed by : [address] [address] Chloride 102 97 - 110 mmol/L HARSHA Comment:Testing performed by : [address] [address] CO2 30 22 - 32 mmol/L HARSHA [place] Comment:Testing performed by : [address] [address] Anion gap 9 2 - 15 mmol/L HARSHA Comment:Testing performed by : [address] [address] BUN 17 6 - 25 mg/dL HARSHA Comment:Testing performed by : [address] [address] Creatinine 0.75 0.60 - 1.10 mg/dL HARSHA Comment:Testing performed by : [address] [address] Glucose 98 70 - 199 mg/dL HARSHA [...] was last revised 2022. Testing performed by: [address] [address] Calcium 10.3 8.5 - 10.3 mg/dL HARSHA Comment:Testing performed by : [address] [address] Bilirubin, total 0.8 0.1 - 1.2 mg/dL HARSHA Comment:Testing performed by : [address] [address] Protein, pl 6.8 6.5 - 8.5 g/dL HARSHA Comment:Testing performed by : [address] [address] Albumin 4.4 3.5 - 5.0 g/dL HARSHA Comment:Testing performed by : [address] [address] Alk phos 60 40 - 130 Units/L HARSHA Comment:Testing performed by : [address] [place]., [address] ALT 27 7 - 45 Units/L HARSHA [place] Comment:Testing performed by : [address] [address] AST 28 10 - 45 Units/L HARSHA [place] Comment:Testing performed by : [address] [address] Blood 08/01/2024 1:15 PM LAUNDRY MANAGER 08/01/2024 4:11 PM LAUNDRY MANAGER us 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 NP LAB BLOOD ORDERABLES Final Res ult HARSHA [place] [address] [facility] Department [place] [address] * Screening Mammogram Bilateral W Ebenezer (06/25/2024 3:48 PM LAUNDRY MANAGER) Anatomical Region Laterality Modality Breast Bilateral Mammography Impressions 06/25/2024 4:03 PM LAUNDRY MANAGER BI-RADS ATLAS category (overall): 1 - Negative There is no mammographic evidence of malignancy. A 1 year screening mammogram is recommended. The patient has been or will be contacted. We recommend annual screening mammography for women at average risk of breast cancer beginning at age 40, based on guidelines of the [employer] (ACR Practice Parameter for the Performance of Screening and Diagnostic Mammography) and [employer]. For women with and elevated risk of breast cancer, please refer to the ACR Practice Parameter for specific screening recommendations. The patient will be entered into a reminder system with a target due date of 1 year for her next screening exam. Narrative 06/25/2024 4:03 PM LAUNDRY MANAGER Screening Mammogram Bilateral W Ebenezer: 06/25/24 The study was acquired using full [...] cancer. COMPARISONS: 04/06/2023 Screening Mammogram Bilateral W Ebenezer 12/31/2021 Screening Mammogram Bilateral W Ebenezer 2019 mamm BREAST TISSUE: The breasts are heterogeneously dense, which may obscure small masses. FINDINGS: No suspicious masses, suspicious calcifications, or other suspicious findings are seen within either breast. There has been no suspicious change. us Self Screening Mammogram IMG MAMMO PROCEDURES Fi nal Result * Colonoscopy (05/27/2021) Anatomical Region Laterality Modality Other Historical Provider MD ENDOSCOPY PROCEDURES Sneha l Result * Hepatitis panel, acute (07/02/2019 5:44 AM LAUNDRY MANAGER) HepBsAg NONREACT NONREACTIVE [facility] Comment: Siemens CentaurXP using AMY (chemiluminescent immunoassay) technology. NONREACTIVE: IgM antibodies to Hepatitis B Surface antigen not detected. REACTIVE: IgM antibodies to Hepatitis B Surface antigen detected. Reactive results will be confirmed by neutralization testing. HBsAb qn <3.10 mIU/mL [facility] Comment: Siemens CentaurXP using AMY (chemiluminescent immunoassay) technology. 9.99 IU/L or less.....NONREACTIVE: IgM antibodies to Hepatitis B Surface antibody are not detected. 10.00 IU/L or greater..REACTIVE: IgM antibodies to Hepatitis B Surface antibody are detected. Hep B core IgM NONREACT NONREACTIVE [facility] Comment: Siemens CentaurXP using AMY (chemiluminescent immunoassay) technology. NONREACTIVE: IgM antibodies to Hepatitis B Core antigen not detected. EQUIVOCAL: IgM antibodies to Hepatitis B Core antigen may or may not be present. Obtain a new specimen and retest. REACTIVE: IgM antibodies to Hepatitis B Core antigen detected. Hep A IgM NONREACT NONREACTIVE [facility] Comment: Siemens CentaurXP using AMY (chemiluminescent immunoassay) technology. NONREACTIVE: IgM antibodies to Hepatitis A not detected. This does not exclude possibility of exposure to Hepatitis A or early acute infection. EQUIVOCAL:IgM antibodies to Hepatitis A may or may not be present. Suggest recollection and retest. REACTIVE: Antibodies to Hepatitis A detected. Hep C Ab NONREACT NONREACTIVE [facility] Comment: Siemens CentaurXP using AMY (chemiluminescent [...] by real-time PCR method. 07/02/2019 5:44 AM LAUNDRY MANAGER 07/02/2019 5:55 AM LAUNDRY MANAGER Narrative Resulting Agency Comment IN us Zeina Hart MD LAB MICROBIOLOGY - GENERAL OR DERABLES Final Result [address] [address], [facility] [phone] from Last 3 Months or Most Recently Relevant to Health Maintenance Insurance [facility] ADV REF [facility] [place] [address] AETNA MEDICARE Care Teams Ecommerce Marketing Specialist Relationship Specialty Start Date End Date 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, [address] [place], [place] [address] PCP - General Family Medicine 04/09/24
--- OUTSIDE RECORDS SUMMARY | 2024-09-04 11:21 | XMS_ITS | Clinical Summary ---
Author Organization [facility] Address [address] [place] [address] Care Team Providers Care Payroll Tax Specialist Name Role Phone Zhanna Wheeler MD Primary Care Provider [phone] Immunizations Name Administration Dates Next Due MODERNA COVID-19 (12+) MRNA, LNP-S, PF, 100 MCG/ 0.5 ML DOSE 09/10/2020,08/13/2020 Family History Medical History Relation Comments Breast Cancer Other Relation Status Comments Other Social History Tobacco Use Types Packs/Day Years Used Date Smoking Tobacco: Never Assessed Comments Unknown Sex and Gender Information Value Date Recorded Sex Assigned at Not on file Legal Sex Female 7:13 PM CDT Gender Identity Not on file Sexual Orientation Not on file Plan of Treatment Health Maintenance Due Date Last Done Comments Colorectal Cancer Screening Colonoscopy (10 Years) 1950 Hepatitis C 1969 DTaP, Tdap and Td Vaccines (1 - Tdap) 1970 Annual Medicare Wellness Visit 2016 Mammogram Screening 07/28/2019 07/28/2017 Pneumococcal Vaccine: 65+ Years (2 of 2 - PPSV23 or PCV20) 07/31/2020 07/31/2019 COVID-19 Vaccine (3 - season) 2024 09/10/2020, 08/13/2020 Influenza Adult (#1) 2024 04/04/2020, 04/03/2020, 04/26/2019, Additional history exists RSV Immunization or 60+ Years (1 - 1-dose 75+ series) 2026 Zoster Vaccines Completed 05/03/2020, 04/04/2020 Dexa Scan (General) Completed 05/22/2020, 05/31/2018, 05/26/2016 Meningococcal B Vaccine Aged Out No l onger eligible based on patient's age to complete this topic Meningococcal Vaccine Aged Out No richard juan daniel eligible based on patient's age to complete this topic RSV Immunizations Under 20 Months Aged Out No longer eligible based on patient's age to complete this topic Procedures Procedure Name Priority Date/Time Associated Diagnosis Comments MG SCREENING JOHNNY DIGI Routine 07/28/2017 12:49 PM SVP OF DIGITAL Screening breast examination from Last 3 Months or Most Recently Relevant to Health Maintenance Results * MG SCREENING JOHNNY DIGI (07/28/2017 12:49 PM SVP OF DIGITAL) Anatomical Region Laterality Modality Breast Bilateral Mammography 07/28/2017 1:12 PM SVP OF DIGITAL Impressions 07/28/2017 1:14 PM SVP OF DIGITAL ===== IMPRESSION: ===== No mammographic evidence for neoplasm. Assessment: ACR BI-RADS Category 2 - Benign. Recommendation: 1: Routine screening mammogram bilateral in 1 year Comments: A negative or benign mammography report should not discourage follow-up or biopsy of a clinically significant finding and/or abnormality. Regions of dense breast tissue may obscure small neoplasms. Narrative 07/28/2017 1:14 PM SVP OF DIGITAL Examination: Digital bilateral screening mammogram Exam Date/Time: 07/28/2017 12:28 PM Clinical history: No current symptoms or complaints. Prior breast biopsy Comparison: 04/20/2016, 04/08/2015, 12/17/2013, 05/16/2012, 04/19/2011, 01/21/2010, 12/30/2009, 09/19/2008, 09/07/2007. Technique: Digital screening mammography of both breasts was performed. This study was read with the assistance of a computer-aided detection system. Tissue density: The breast tissue is heterogeneously dense. Findings: Craniocaudad and medial lateral oblique mammographic views of both breasts were obtained. There is no dominant mass. There are no suspicious microcalcifications. There are stable areas of asymmetric breast parenchyma. Benign-appearing calcifications are seen. Zhanna Wheeler MD MAMMO Final Result from Last 3 Months or Most Recently Relevant to Health Maintenance Insurance [employer] Care Teams Payroll Tax Specialist Relationship Specialty Start Date End Date Zhanna Wheeler MD PCP - General 04/20/16
[2024-09-04 11:28] VITALS: BP 168/94; PULSE 89; RESP 18; TEMP 36.7; O2SAT 100
[2024-09-04 11:34] VITALS: BP 165/96; PULSE 75; RESP 15; TEMP 36.7; O2SAT 98
[2024-09-04 11:40] VITALS: O2SAT 99
[2024-09-04 11:41] VITALS: PULSE 81
--- OUTSIDE RECORDS SUMMARY | 2024-09-04 11:42 | XMS_ITS | Clinical Summary ---
Author Organization [facility] [address] [facility] Address [address] [place] [address] Care Team Providers Care Business Development Engineer Name Role Phone 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 NP Primary Care Provider [phone] Allergies Active Allergy Reactions Criticality Noted Date [...] 07/18 Assessment & Plan (08/03/2024 5:03 PM INJECTION MOLDING ENGINEER): Chronic, patient not interested in quitting at this time. Last chest CT completed in 09/2019, no pulmonary nodule noted at that time. Patient is not interested in repeat chest CT at this time. Medicare annual wellness visit, subsequent 06/14 Assessment & Plan (08/03/2024 5:07 PM INJECTION MOLDING ENGINEER): CBC, CMP, lipid panel ordered. Mammogram last completed: 06/2024 DEXA ordered. Colonoscopy last completed: 05/2021 repeat in 05/2031 Vaccinations: COVID, Shingrix, Prevnar, Pneumovax, and Flu vaccines UTD. Repeat wellness exam in one year. Assessment & Plan (06/16/2023 2:29 PM INJECTION MOLDING ENGINEER): Healthcare maintenance updated Assessment & Plan (06/14/2022 1:30 PM INJECTION MOLDING ENGINEER): Healthcare maintenance updated Generalized anxiety disorder 06/14/2022 Assessment & Plan (08/03/2024 5:05 PM INJECTION MOLDING ENGINEER): Chronic, controlled with Celexa 20 mg daily. Follow up yearly. Assessment & Plan (12/14/2023 6:37 AM CDT): This appears to be well controlled, continue current meds, follow-up routine Assessment & Plan (06/16/2023 2:28 PM INJECTION MOLDING ENGINEER): This appears to be well controlled, continue current meds, follow-up routine Assessment & Plan (12/30/2022 10:37 AM CDT): This is well controlled with no HI SI will continue to follow Assessment & Plan (07/01/2022 11:48 AM INJECTION MOLDING ENGINEER): Well controlled Assessment & Plan (06/14/2022 1:29 PM INJECTION MOLDING ENGINEER): This is well controlled with no SI HI, continue current meds follow-up routine Primary hypertension 06/14/2022 Assessment & Plan (08/01/2024 12:41 PM INJECTION MOLDING ENGINEER): Chronic, controlled. Patient to continue Micardis 40 [...] routine Assessment & Plan (06/16/2023 2:28 PM INJECTION MOLDING ENGINEER): This is not controlled and after reviewing [...] routine Assessment & Plan (07/01/2022 11:49 AM INJECTION MOLDING ENGINEER): Images from the original note were not included. This is a stable chronic condition. Monitor blood pressure, call if out of parameters as we discussed. Low sodium and caffeine diet. baby asa as discussed if applicable. Diet, exercise and weight reduction. Labs as ordered. F/U routine Assessment & Plan (06/14/2022 1:30 PM INJECTION MOLDING ENGINEER): Patient has no history of heart failure [...] 06/14/2022 Assessment & Plan (08/03/2024 5:05 PM INJECTION MOLDING ENGINEER): Chronic, controlled. Patient to continue on atorvastatin [...] routine. Assessment & Plan (07/01/2022 11:49 AM INJECTION MOLDING ENGINEER): Patient is to continue present medications, work on diet and exercise as discussed, we did discuss the medications and potential side effects and signs and symptoms that would warrant calling office. Follow up routine. Assessment & Plan (06/14/2022 1:29 PM INJECTION MOLDING ENGINEER): Patient is to continue present medications, work on diet and exercise as discussed, we did discuss the medications and potential side effects and signs and symptoms that would warrant calling office. Follow up routine. Vitamin D deficiency 06/14/2022 Assessment & Plan (08/03/2024 5:07 PM INJECTION MOLDING ENGINEER): Chronic, controlled with daily vitamin D supplement. Follow up yearly. Assessment & Plan (12/14/2023 6:37 AM CDT): Continue vitamin-D Assessment & Plan (06/16/2023 2:29 PM INJECTION MOLDING ENGINEER): Continue vitamin-D Assessment & Plan (12/30/2022 10:38 AM CDT): Continue vitamin-D Assessment & Plan (07/01/2022 11:42 AM INJECTION MOLDING ENGINEER): Increase to 5000 Pulmonary nodule 07/31/2019 Assessment & Plan (06/16/2023 2:29 PM INJECTION MOLDING ENGINEER): CT lung screening ordered Assessment & Plan (09/29/2019 4:36 PM CDT): CT scan of the chest shows no concerning pulmonary nodules or masses. Assessment & Plan (07/31/2019 4:21 PM INJECTION MOLDING ENGINEER): Will follow-up with a CT scan of [...] chest. Assessment & Plan (07/31/2019 4:22 PM INJECTION MOLDING ENGINEER): Will obtain full set of PFTs. Patient quit smoking few years ago. Gastroesophageal reflux disease 07/30/2019 Assessment & Plan (08/03/2024 4:59 PM INJECTION MOLDING ENGINEER): Chronic, controlled with diet. Assessment & Plan [...] understanding Assessment & Plan (06/16/2023 2:28 PM INJECTION MOLDING ENGINEER): Avoid spicy, fried, greasy foods Keep hydrated [...] understanding Assessment & Plan (07/01/2022 11:48 AM INJECTION MOLDING ENGINEER): Images from the original note were not [...] 08/03/2024 Assessment & Plan (07/01/2022 11:50 AM INJECTION MOLDING ENGINEER): Sending to derm also with lines in nails History of severe acute resp iratory syndrome coronavirus 2 (SARS-CoV-2) disease 02/04/202208/03 Hypokalemia 05/21/2020 08/03/2024 Mixed anxiety and depressive disorder 05/30/2018 08/01/2024 Encounter for orthopedic follow-up care 03/12/2015 08/03/2024 Fracture of foot 09/21/2011 08/01/2024 Closed fracture of tibial plateau 09/21/2011 06/14/2022 Encounters Date Type Department Care Team Description 08/01/2024 1:05 PM INJECTION MOLDING ENGINEER Lab [facility] [address] [place] [id number] Mixed hyperlipidemia; Primary hypertension 08/01/2024 12:30 PM INJECTION MOLDING ENGINEER Office Visit [facility] [address] [place] [address] [address] [place] [address] 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 NP Medicare annual wellness visit, subsequent (Primary Dx); Primary hypertension; Mixed hyperlipidemia; Generalized anxiety disorder; Vitamin D deficiency; Gastroesophageal reflux disease, unspecified whether esophagitis present; Vaping nicotine dependence, tobacco product; Postmenopausal 06/25/2024 3:38 PM INJECTION MOLDING ENGINEER - 06/25/2024 11:59 PM INJECTION MOLDING ENGINEER Hospital Encounter [facility] [address] Breast [facility] [address] [address] Screening mammogram, encounter for Discharge Disposition: Discharge [...] on file Legal Sex Female 2:00 AM INJECTION MOLDING ENGINEER Gender Identity Not on file Sexual Orientation Not on file Obstetrics History Para Term AB IAB SAB Ectopic Multiple Livin g Live Births 3 3 3 Date Outcome GA Total Labor Labor/3rd Weight Sex Type Anes PTL Lis A1 A5 Name Clin Term Term Term Last Filed Vital Signs Vital Sign Reading Time Taken Comments Blood Pressure 122/82 08/01/2024 12:17 PM INJECTION MOLDING ENGINEER Pulse 70 08/01/2024 12:17 PM INJECTION MOLDING ENGINEER Temperature 36.8 C (98.2 F) 08/01/2024 12:17 PM INJECTION MOLDING ENGINEER Respiratory Rate 20 08/01/2024 12:1 7 PM INJECTION MOLDING ENGINEER Oxygen Saturation 96% 08/01/2024 12: 17 PM INJECTION MOLDING ENGINEER Inhaled Oxygen Concentration - - Weight 85.7 kg (188 lb 14.4 oz) 025 12:17 PM INJECTION MOLDING ENGINEER Height 168.9 cm (5' 6.5 ) 08/01/2024 12 :17 PM INJECTION MOLDING ENGINEER Body Mass Index 30.04 08/01/2024 12:17 PM INJECTION MOLDING ENGINEER Plan of Treatment Health Maintenance Due Date [...] Diagnosis Comments EGFR Routine 08/01/2024 1:15 PM INJECTION MOLDING ENGINEER Primary hypertension DIFFERENTIAL AUTO Routine 08/01/2024 1:1 5 PM INJECTION MOLDING ENGINEER Primary hypertension CBC WITH AUTO DIFFERENTIAL Routine 08/01/2024 1:15 PM INJECTION MOLDING ENGINEER Primary hypertension COMPREHENSIVE METABOLIC PANEL Routine 08/01/2024 1:15 PM INJECTION MOLDING ENGINEER Primary hypertension LIPID PANEL Routine 08/01/2024 1:15 PM INJECTION MOLDING ENGINEER Mixed hyperlipidemia SCREENING MAMMOGRAM BILATERAL W EBENEZER Schedule Routine, Read Routine (OP Routine) 06/25/2024 3:48 PM INJECTION MOLDING ENGINEER Screening mammogram, encounter for COLONOSCOPY Routine 05/27/2021 HEPATITIS PANEL, ACUTE Routine 07/02/2019 5:44 AM INJECTION MOLDING ENGINEER from Last 3 Months or Most Recently Relevant to Health Maintenance Results * eGFR (08/01/2024 1:15 PM INJECTION MOLDING ENGINEER) eGFR 84 >=60 mL/min/1. 73 m2 Comment: [...] was last reviewed 2021. Testing performed by: [address] [address] Blood 08/01/2024 1:15 PM INJECTION MOLDING ENGINEER 08/01/2024 4:11 PM INJECTION MOLDING ENGINEER us 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 NP LAB BLOOD ORDERABLES Final Res ult HARSHA [address] [facility] Department [place] [address] * Differential, auto (08/01/2024 1:15 PM INJECTION MOLDING ENGINEER) Pathologist [facility] Neutrophil abs 3.2 1.5 - 6.5 K/cumm Comment:Testing performed by : [address] [address] Imm gran abs 0.0 0.0 - 0.1 K/cumm HARSHA Comment:Testing performed by : [address] [address] Lymphocyte abs 2.0 0.8 - 3.3 K/cumm HARSHA Comment:Testing performed by : [address] [address] Monocyte abs 0.5 0.2 - 0.8 K/cumm HARSHA Comment:Testing performed by : [address] [address] Eosinophil abs 0.1 0.0 - 0.5 K/cumm HARSHA Comment:Testing performed by : [address] [address] Basophil abs 0.0 0.0 - 0.1 K/cumm HARSHA Comment:Testing performed by : [address] [address] Neutrophil pct 55.4 % [facility] Comment: Interpretive Data Percent cell count reference ranges are not reported, since discordance with absolute values may lead to misinterpretation of CBC data. Current Interpretive Data was last revised on 2017. Testing performed by: [address] [address] Imm gran pct 0.3 % [facility] Comment: Interpretive Data Percent cell count reference ranges are not reported, since discordance with absolute values may lead to misinterpretation of CBC data. Current Interpretive Data was last revised on 2017. Testing performed by: [address] [address] Lymphocyte pct 33.5 % [facility] Comment: Interpretive Data Percent cell count reference ranges are not reported, since discordance with absolute values may lead to misinterpretation of CBC data. Current Interpretive Data was last revised on 2017. Testing performed by: [address] [address] Monocyte pct 9.1 % [facility] Comment: Interpretive Data Percent cell count reference ranges are not reported, since discordance with absolute values may lead to misinterpretation of CBC data. Current Interpretive Data was last revised on 2017. Testing performed by: [address] [address] Eosinophil pct 1.5 % HARSHA Comment: Interpretive Data Percent cell count reference ranges are not reported, since discordance with absolute values may lead to misinterpretation of CBC data. Current Interpretive Data was last revised on 2017. Testing performed by: [address] [address] Basophil pct 0.2 % HARSHA Comment: Interpretive Data Percent cell count reference ranges are not reported, since discordance with absolute values may lead to misinterpretation of CBC data. Current Interpretive Data was last revised on 2017. Testing performed by: [address] [address] Blood 08/01/2024 1:15 PM INJECTION MOLDING ENGINEER 08/01/2024 4:08 PM INJECTION MOLDING ENGINEER us 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 ELECTRICAL ACCESSORIES I ASSEMBLER LAB BLOOD ORDERABLES Final Res ult HARSHA [address] [facility] Department of Laboratories [place], [place] [id number] * CBC with auto differential (08/01/2024 1:15 PM INJECTION MOLDING ENGINEER) WBC 5.9 3.8 - 9.9 K/cumm Comment:Testing performed by : [address] [address] Hgb 13.8 11.9 - 15.5 g/dL HARSHA Comment:Testing performed by : [address] [address] Hct 41.0 35.6 - 45.5 % HARSHA Comment:Testing performed by : [address] [address] Plt 249 150 - 400 K/cumm HARSHA Comment:Testing performed by : [address] [address] MPV 10.5 9.1 - 12.3 fL HARSHA Comment:Testing performed by : [address] [address] RBC 4.51 3.90 - 5.20 M/cumm HARSHA [place]LEY Comment:Testing performed by : [address] [address] MCV 90.9 81.3 - 96.4 fL HARSHA [place] Comment:Testing performed by : [address] [address] MCH 30.6 27.1 - 33.3 pg HARSHA [place] Comment:Testing performed by : [address] [address] MCHC 33.7 32.3 - 35.7 g/dL HARSHA [place] Comment:Testing performed by : [address] [address] RDW CV 13.1 11.1 - 14.9 % HARSHA [place] Comment:Testing performed by : [address] [address] RDW SD 43.5 35.7 - 48.1 fL HARSHA [place] Comment:Testing performed by : [address] [address] NRBC abs 0.00 0.00 - 0.01 K/cumm HARSHA [place] Comment:Testing performed by : [address] [address] Blood 08/01/2024 1:15 PM INJECTION MOLDING ENGINEER 08/01/2024 4:08 PM INJECTION MOLDING ENGINEER 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 ELECTR[employer] ACCESSORIES I ASSEMBLER LAB BLOOD ORDERABLES Final Res ult HARSHA [address] [facility] Department of Laboratories [place], [place] [id number] * Lipid panel (08/01/2024 1:15 PM INJECTION MOLDING ENGINEER) Cholesterol 164 30 - 199 mg/dL Comment: [...] last revised on 2018. Testing performed by: [address] [address] Triglycerides 61 <=149 mg/dL HARSHA [place] Comment: [...] last revised on 2018. Testing performed by: [address] [address] HDL 60 >=40 mg/dL HARSHA Comment: Interpretive [...] last revised on 2018. Testing performed by: [address] [address] LDL, calculated 92 <=129 mg/dL HARSHA Comment: [...] last revised on 2024. Testing performed by: [address] [address] Non-HDL Cholesterol 104 mg/dL HARSHA Comment: Interpretive [...] last revised on 2018. Testing performed by: [address] [address] Chol/HDL ratio 3 HARSHA Comment:Testing performed by : [address] [address] Blood 08/01/2024 1:15 PM INJECTION MOLDING ENGINEER 08/01/2024 4:11 PM INJECTION MOLDING ENGINEER us 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 NP LAB BLOOD ORDERABLES Final Res ult HARSHA [address] [facility] Department [place] [address] * Comprehensive metabolic panel (08/01/2024 1:15 PM INJECTION MOLDING ENGINEER) Sodium 141 135 - 145 mmol/L Comment:Testing performed by : [address] [address] Potassium, pl 4.7 3.3 - 4.9 mmol/L HARSHA [place] Comment:Testing performed by : [address] [address] Chloride 102 97 - 110 mmol/L HARSHA Comment:Testing performed by : [address] [address] CO2 30 22 - 32 mmol/L HARSHA [place] Comment:Testing performed by : [address] [address] Anion gap 9 2 - 15 mmol/L HARSHA Comment:Testing performed by : [address] [address] BUN 17 6 - 25 mg/dL HARSHA Comment:Testing performed by : [address] [address] Creatinine 0.75 0.60 - 1.10 mg/dL HARSHA Comment:Testing performed by : [address] [address] Glucose 98 70 - 199 mg/dL HARSHA [...] was last revised 2022. Testing performed by: [address] [address] Calcium 10.3 8.5 - 10.3 mg/dL HARSHA Comment:Testing performed by : [address] [address] Bilirubin, total 0.8 0.1 - 1.2 mg/dL HARSHA Comment:Testing performed by : [address] [address] Protein, pl 6.8 6.5 - 8.5 g/dL HARSHA Comment:Testing performed by : [address] [address] Albumin 4.4 3.5 - 5.0 g/dL HARSHA Comment:Testing performed by : [address] [address] Alk phos 60 40 - 130 Units/L HARSHA Comment:Testing performed by : [address] [place]., [address] ALT 27 7 - 45 Units/L HARSHA [place] Comment:Testing performed by : [address] [address] AST 28 10 - 45 Units/L HARSHA [place] Comment:Testing performed by : [address] [address] Blood 08/01/2024 1:15 PM INJECTION MOLDING ENGINEER 08/01/2024 4:11 PM INJECTION MOLDING ENGINEER us 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 NP LAB BLOOD ORDERABLES Final Res ult HARSHA [place] [address] [facility] Department [place] [address] * Screening Mammogram Bilateral W Ebenezer (06/25/2024 3:48 PM INJECTION MOLDING ENGINEER) Anatomical Region Laterality Modality Breast Bilateral Mammography Impressions 06/25/2024 4:03 PM INJECTION MOLDING ENGINEER BI-RADS ATLAS category (overall): 1 - Negative There is no mammographic evidence of malignancy. A 1 year screening mammogram is recommended. The patient has been or will be contacted. We recommend annual screening mammography for women at average risk of breast cancer beginning at age 40, based on guidelines of the [employer] (ACR Practice Parameter for the Performance of Screening and Diagnostic Mammography) and [employer]. For women with and elevated risk of breast cancer, please refer to the ACR Practice Parameter for specific screening recommendations. The patient will be entered into a reminder system with a target due date of 1 year for her next screening exam. Narrative 06/25/2024 4:03 PM INJECTION MOLDING ENGINEER Screening Mammogram Bilateral W Ebenezer: 06/25/24 The [...] * Hepatitis panel, acute (07/02/2019 5:44 AM INJECTION MOLDING ENGINEER) HepBsAg NONREACT NONREACTIVE [facility] Comment: Siemens CentaurXP using AMY (chemiluminescent immunoassay) technology. NONREACTIVE: IgM antibodies to Hepatitis B Surface antigen not detected. REACTIVE: IgM antibodies to Hepatitis B Surface antigen detected. Reactive results will be confirmed by neutralization testing. HBsAb qn <3.10 mIU/mL [facility] Comment: Siemens CentaurXP using AMY (chemiluminescent immunoassay) technology. 9.99 IU/L or less.....NONREACTIVE: IgM antibodies to Hepatitis B Surface antibody are not detected. 10.00 IU/L or greater..REACTIVE: IgM antibodies to Hepatitis B Surface antibody are detected. Hep B core IgM NONREACT NONREACTIVE [facility] Comment: Siemens CentaurXP using AMY (chemiluminescent immunoassay) technology. NONREACTIVE: IgM antibodies to Hepatitis B Core antigen not detected. EQUIVOCAL: IgM antibodies to Hepatitis B Core antigen may or may not be present. Obtain a new specimen and retest. REACTIVE: IgM antibodies to Hepatitis B Core antigen detected. Hep A IgM NONREACT NONREACTIVE [facility] Comment: Siemens CentaurXP using AMY (chemiluminescent immunoassay) technology. NONREACTIVE: IgM antibodies to Hepatitis A not detected. This does not exclude possibility of exposure to Hepatitis A or early acute infection. EQUIVOCAL:IgM antibodies to Hepatitis A may or may not be present. Suggest recollection and retest. REACTIVE: Antibodies to Hepatitis A detected. Hep C Ab NONREACT NONREACTIVE [facility] Comment: Siemens CentaurXP using AMY (chemiluminescent [...] by real-time PCR method. 07/02/2019 5:44 AM INJECTION MOLDING ENGINEER 07/02/2019 5:55 AM INJECTION MOLDING ENGINEER Narrative Resulting Agency Comment IN us Zeina Hart MD LAB MICROBIOLOGY - GENERAL OR DERABLES Final Result [address] [address], [facility] [phone] from Last 3 Months or Most Recently Relevant to Health Maintenance Insurance [facility] [place] [address] [employer]ET[employer] MEDICARE Care Teams Business Development Engineer Relationship Specialty Start Date End Date 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, [employer]LECT[employer] I ASSEMBLER [address] [place], [place] [id number] PCP - General Family Medicine 04/09/24
--- OUTSIDE RECORDS SUMMARY | 2024-09-04 11:42 | XMS_ITS | Referral Summary ---
Author Organization [facility] [address] [facility] Address [address] [place] [address] Care Team Providers Care Civil Division Commander Deputy Sheriff Name Role Phone 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 JACK FRAME TENDER Primary Care Provider [phone] Encounters Date Type Department Care Team Description 08/01/2024 1:05 PM HOSPITAL EDUCATOR Lab [facility] Medical Office Building [address] [place] [id number] Mixed hyperlipidemia; Primary hypertension 08/01/2024 12:30 PM HOSPITAL EDUCATOR Office Visit [facility] [address] [place] [address] [address] [place] [address] 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, HUMBERTO Medicare annual wellness visit, subsequent (Primary Dx); Primary hypertension; Mixed hyperlipidemia; Generalized anxiety disorder; Vitamin D deficiency; Gastroesophageal reflux disease, unspecified whether esophagitis present; Vaping nicotine dependence, tobacco product; Postmenopausal 06/25/2024 3:38 PM HOSPITAL EDUCATOR - 06/25/2024 11:59 PM HOSPITAL EDUCATOR Hospital Encounter [facility] Medical Office Bldg [facility] [address] [place] [address] [address] [place] [address] Screening mammogram, encounter for Discharge Disposition: Discharge [...] 07/18 Assessment & Plan (08/03/2024 5:03 PM HOSPITAL EDUCATOR): Chronic, patient not interested in quitting at this time. Last chest CT completed in 09/2019, no pulmonary nodule noted at that time. Patient is not interested in repeat chest CT at this time. Medicare annual wellness visit, subsequent 06/14 Assessment & Plan (08/03/2024 5:07 PM HOSPITAL EDUCATOR): CBC, CMP, lipid panel ordered. Mammogram last completed: 06/2024 DEXA ordered. Colonoscopy last completed: 05/2021 repeat in 05/2031 Vaccinations: COVID, Shingrix, Prevnar, Pneumovax, and Flu vaccines UTD. Repeat wellness exam in one year. Assessment & Plan (06/16/2023 2:29 PM HOSPITAL EDUCATOR): Healthcare maintenance updated Assessment & Plan (06/14/2022 1:30 PM HOSPITAL EDUCATOR): Healthcare maintenance updated Generalized anxiety disorder 06/14/2022 Assessment & Plan (08/03/2024 5:05 PM HOSPITAL EDUCATOR): Chronic, controlled with Celexa 20 mg daily. Follow up yearly. Assessment & Plan (12/14/2023 6:37 AM CDT): This appears to be well controlled, continue current meds, follow-up routine Assessment & Plan (06/16/2023 2:28 PM HOSPITAL EDUCATOR): This appears to be well controlled, continue current meds, follow-up routine Assessment & Plan (12/30/2022 10:37 AM CDT): This is well controlled with no HI SI will continue to follow Assessment & Plan (07/01/2022 11:48 AM HOSPITAL EDUCATOR): Well controlled Assessment & Plan (06/14/2022 1:29 PM HOSPITAL EDUCATOR): This is well controlled with no SI HI, continue current meds follow-up routine Primary hypertension 06/14/2022 Assessment & Plan (08/01/2024 12:41 PM HOSPITAL EDUCATOR): Chronic, controlled. Patient to continue Micardis 40 [...] routine Assessment & Plan (06/16/2023 2:28 PM HOSPITAL EDUCATOR): This is not controlled and after reviewing [...] routine Assessment & Plan (07/01/2022 11:49 AM HOSPITAL EDUCATOR): Images from the original note were not included. This is a stable chronic condition. Monitor blood pressure, call if out of parameters as we discussed. Low sodium and caffeine diet. baby asa as discussed if applicable. Diet, exercise and weight reduction. Labs as ordered. F/U routine Assessment & Plan (06/14/2022 1:30 PM HOSPITAL EDUCATOR): Patient has no history of heart failure [...] 06/14/2022 Assessment & Plan (08/03/2024 5:05 PM HOSPITAL EDUCATOR): Chronic, controlled. Patient to continue on atorvastatin [...] routine. Assessment & Plan (07/01/2022 11:49 AM HOSPITAL EDUCATOR): Patient is to continue present medications, work on diet and exercise as discussed, we did discuss the medications and potential side effects and signs and symptoms that would warrant calling office. Follow up routine. Assessment & Plan (06/14/2022 1:29 PM HOSPITAL EDUCATOR): Patient is to continue present medications, work on diet and exercise as discussed, we did discuss the medications and potential side effects and signs and symptoms that would warrant calling office. Follow up routine. Vitamin D deficiency 06/14/2022 Assessment & Plan (08/03/2024 5:07 PM HOSPITAL EDUCATOR): Chronic, controlled with daily vitamin D supplement. Follow up yearly. Assessment & Plan (12/14/2023 6:37 AM CDT): Continue vitamin-D Assessment & Plan (06/16/2023 2:29 PM HOSPITAL EDUCATOR): Continue vitamin-D Assessment & Plan (12/30/2022 10:38 AM CDT): Continue vitamin-D Assessment & Plan (07/01/2022 11:42 AM HOSPITAL EDUCATOR): Increase to 5000 Pulmonary nodule 07/31/2019 Assessment & Plan (06/16/2023 2:29 PM HOSPITAL EDUCATOR): CT lung screening ordered Assessment & Plan (09/29/2019 4:36 PM CDT): CT scan of the chest shows no concerning pulmonary nodules or masses. Assessment & Plan (07/31/2019 4:21 PM HOSPITAL EDUCATOR): Will follow-up with a CT scan of [...] chest. Assessment & Plan (07/31/2019 4:22 PM HOSPITAL EDUCATOR): Will obtain full set of PFTs. Patient quit smoking few years ago. Gastroesophageal reflux disease 07/30/2019 Assessment & Plan (08/03/2024 4:59 PM HOSPITAL EDUCATOR): Chronic, controlled with diet. Assessment & Plan [...] understanding Assessment & Plan (06/16/2023 2:28 PM HOSPITAL EDUCATOR): Avoid spicy, fried, greasy foods Keep hydrated [...] understanding Assessment & Plan (07/01/2022 11:48 AM HOSPITAL EDUCATOR): Images from the original note were not [...] 08/03/2024 Assessment & Plan (07/01/2022 11:50 AM HOSPITAL EDUCATOR): Sending to derm also with lines in [...] on file Legal Sex Female 2:00 AM HOSPITAL EDUCATOR Gender Identity Not on file Sexual Orientation Not on file Last Filed Vital Signs Vital Sign Reading Time Taken Comments Blood Pressure 122/82 08/01/2024 12:17 PM HOSPITAL EDUCATOR Pulse 70 08/01/2024 12:17 PM HOSPITAL EDUCATOR Temperature 36.8 C (98.2 F) 08/01/2024 12:17 PM HOSPITAL EDUCATOR Respiratory Rate 20 08/01/2024 12:1 7 PM HOSPITAL EDUCATOR Oxygen Saturation 96% 08/01/2024 12: 17 PM HOSPITAL EDUCATOR Inhaled Oxygen Concentration - - Weight 85.7 kg (188 lb 14.4 oz) 025 12:17 PM HOSPITAL EDUCATOR Height 168.9 cm (5' 6.5 ) 08/01/2024 12 :17 PM HOSPITAL EDUCATOR Body Mass Index 30.04 08/01/2024 12:17 PM HOSPITAL EDUCATOR Plan of Treatment Not on file Procedures Procedure Name Priority Date/Time Associated Diagnosis Comments EGFR Routine 08/01/2024 1:15 PM HOSPITAL EDUCATOR Primary hypertension DIFFERENTIAL AUTO Routine 08/01/2024 1:1 5 PM HOSPITAL EDUCATOR Primary hypertension CBC WITH AUTO DIFFERENTIAL Routine 08/01/2024 1:15 PM HOSPITAL EDUCATOR Primary hypertension COMPREHENSIVE METABOLIC PANEL Routine 08/01/2024 1:15 PM HOSPITAL EDUCATOR Primary hypertension LIPID PANEL Routine 08/01/2024 1:15 PM HOSPITAL EDUCATOR Mixed hyperlipidemia SCREENING MAMMOGRAM BILATERAL W GUSTABO Schedule Routine, Read Routine (OP Routine) 06/25/2024 3:48 PM HOSPITAL EDUCATOR Screening mammogram, encounter for COLONOSCOPY Routine 05/27/2021 HEPATITIS PANEL, ACUTE Routine 07/02/2019 5:44 AM HOSPITAL EDUCATOR from Last 3 Months or Most Recently Relevant to Health Maintenance Results * eGFR (08/01/2024 1:15 PM HOSPITAL EDUCATOR) eGFR 84 >=60 mL/min/1. 73 m2 Comment: [...] was last reviewed 2021. Testing performed by: [address] [address] Blood 08/01/2024 1:15 PM HOSPITAL EDUCATOR 08/01/2024 4:11 PM HOSPITAL EDUCATOR 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 NP LAB BLOOD ORDERABLES Final Res ult [facility] [address] [facility] Department [place] [address] * Differential, auto (08/01/2024 1:15 PM HOSPITAL EDUCATOR) Neutrophil abs 3.2 1.5 - 6.5 K/cumm Comment:Testing performed by : [address] [address] Imm gran abs 0.0 0.0 - 0.1 K/cumm HARSHA Comment:Testing performed by : [address] [address] Lymphocyte abs 2.0 0.8 - 3.3 K/cumm HARSHA Comment:Testing performed by : [address] [address] Monocyte abs 0.5 0.2 - 0.8 K/cumm HARSHA Comment:Testing performed by : [address] [address] Eosinophil abs 0.1 0.0 - 0.5 K/cumm [facility] Comment:Testing performed by : [address] [address] Basophil abs 0.0 0.0 - 0.1 K/cumm HARSHA Comment:Testing performed by : [address] [address] Neutrophil pct 55.4 % [facility] Comment: Interpretive Data Percent cell count reference ranges are not reported, since discordance with absolute values may lead to misinterpretation of CBC data. Current Interpretive Data was last revised on 2017. Testing performed by: [address] [address] Imm gran pct 0.3 % [facility] Comment: Interpretive Data Percent cell count reference ranges are not reported, since discordance with absolute values may lead to misinterpretation of CBC data. Current Interpretive Data was last revised on 2017. Testing performed by: [address] [address] Lymphocyte pct 33.5 % [facility] Comment: Interpretive Data Percent cell count reference ranges are not reported, since discordance with absolute values may lead to misinterpretation of CBC data. Current Interpretive Data was last revised on 2017. Testing performed by: [address] [address] Monocyte pct 9.1 % [facility] Comment: Interpretive Data Percent cell count reference ranges are not reported, since discordance with absolute values may lead to misinterpretation of CBC data. Current Interpretive Data was last revised on 2017. Testing performed by: [address] [address] Eosinophil pct 1.5 % [facility] Comment: Interpretive Data Percent cell count reference ranges are not reported, since discordance with absolute values may lead to misinterpretation of CBC data. Current Interpretive Data was last revised on 2017. Testing performed by: [address] [address] Basophil pct 0.2 % [facility] Comment: Interpretive Data Percent cell count reference ranges are not reported, since discordance with absolute values may lead to misinterpretation of CBC data. Current Interpretive Data was last revised on 2017. Testing performed by: [address] [address] Blood 08/01/2024 1:15 PM HOSPITAL EDUCATOR 08/01/2024 4:08 PM HOSPITAL EDUCATOR us 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 JACK FRAME TENDER LAB BLOOD ORDERABLES Final Res ult [facility] [address] [facility] Department [place] [address] * CBC with auto differential (08/01/2024 1:15 PM HOSPITAL EDUCATOR) WBC 5.9 3.8 - 9.9 K/cumm Comment:Testing performed by : [address] [address] Hgb 13.8 11.9 - 15.5 g/dL HARSHA Comment:Testing performed by : [address] [address] Hct 41.0 35.6 - 45.5 % HARSHA Comment:Testing performed by : [address] [address] Plt 249 150 - 400 K/cumm HARSHA Comment:Testing performed by : [address] [address] MPV 10.5 9.1 - 12.3 fL HARSHA WHATLEY Comment:Testing performed by : [address] [address] RBC 4.51 3.90 - 5.20 M/cumm HARSHA WHATLEY Comment:Testing performed by : [address] [address] MCV 90.9 81.3 - 96.4 fL HARSHA WHATLEY Comment:Testing performed by : [address] [address] MCH 30.6 27.1 - 33.3 pg HARSHA WHATLEY Comment:Testing performed by : [address] [address] MCHC 33.7 32.3 - 35.7 g/dL HARSHA WHATLEY Comment:Testing performed by : [facility], [address] [place] [address]., [address] RDW CV 13.1 11.1 - 14.9 % HARSHA WHATLEY Comment:Testing performed by : [address] [address] RDW SD 43.5 35.7 - 48.1 fL HARSHA WHATLEY Comment:Testing performed by : [address] [address] NRBC abs 0.00 0.00 - 0.01 K/cumm HARSHA WHATLEY Comment:Testing performed by : [address], [place]., [address] Blood 08/01/2024 1:15 PM HOSPITAL EDUCATOR 08/01/2024 4:08 PM HOSPITAL EDUCATOR us 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 NP LAB BLOOD ORDERABLES Final Res ult [facility]SHA [address] [facility] Department [place] [address] * Lipid panel (08/01/2024 1:15 PM HOSPITAL EDUCATOR) Cholesterol 164 30 - 199 mg/dL Comment: [...] last revised on 2018. Testing performed by: [address] [address] Triglycerides 61 <=149 mg/dL HARSHA WHATLEY Comment: [...] last revised on 2018. Testing performed by: [address] [address] HDL 60 >=40 mg/dL [facility] Comment: Interpretive Data Ages < or = [...] last revised on 2018. Testing performed by: [address] [address] LDL, calculated 92 <=129 mg/dL HARSHA Comment: [...] last revised on 2024. Testing performed by: [address] [address] Non-HDL Cholesterol 104 mg/dL HARSHA Comment: Interpretive [...] last revised on 2018. Testing performed by: [address] [address] Chol/HDL ratio 3 HARSHA Comment:Testing performed by : [address] [address] Blood 08/01/2024 1:15 PM HOSPITAL EDUCATOR 08/01/2024 4:11 PM HOSPITAL EDUCATOR us 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 JACK FRAME TENDER LAB BLOOD ORDERABLES Final Res ult [facility]SHA [address] [facility] Department [place] [address] * Comprehensive metabolic panel (08/01/2024 1:15 PM HOSPITAL EDUCATOR) Sodium 141 135 - 145 mmol/L Comment:Testing performed by : [address] [address] Potassium, pl 4.7 3.3 - 4.9 mmol/L HARSHA WHATLEY Comment:Testing performed by : [address] [address] Chloride 102 97 - 110 mmol/L HARSHA WHATLEY Comment:Testing performed by : [address] [address] CO2 30 22 - 32 mmol/L HARSHA WHATLEY Comment:Testing performed by : [address] [address] Anion gap 9 2 - 15 mmol/L HARSHA WHATLEY Comment:Testing performed by : [address] [address] BUN 17 6 - 25 mg/dL HARSHA Comment:Testing performed by : [address] [address] Creatinine 0.75 0.60 - 1.10 mg/dL HARSHA Comment:Testing performed by : [address] [address] Glucose 98 70 - 199 mg/dL HARSHA [...] was last revised 2022. Testing performed by: [address] [address] Calcium 10.3 8.5 - 10.3 mg/dL HARSHA Comment:Testing performed by : [address] [address] Bilirubin, total 0.8 0.1 - 1.2 mg/dL HARSHA Comment:Testing performed by : [address] [address] Protein, pl 6.8 6.5 - 8.5 g/dL HARSHA Comment:Testing performed by : [address] [address] Albumin 4.4 3.5 - 5.0 g/dL HARSHA Comment:Testing performed by : [address] [address] Alk phos 60 40 - 130 Units/L HARSHA Comment:Testing performed by : [address] [address] ALT 27 7 - 45 Units/L HARSHA Comment:Testing performed by : [address] [place]., [address] AST 28 10 - 45 Units/L HARSHA WHATLEY Comment:Testing performed by : [facility], [address] [place] [address]., [address] Blood 08/01/2024 1:15 PM HOSPITAL EDUCATOR 08/01/2024 4:11 PM HOSPITAL EDUCATOR us 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 NP LAB BLOOD ORDERABLES Final Res ult [facility] [address] [facility] Department [place] [address] * Screening Mammogram Bilateral W Gustabo (06/25/2024 3:48 PM HOSPITAL EDUCATOR) Anatomical Region Laterality Modality Breast Bilateral Mammography Impressions 06/25/2024 4:03 PM HOSPITAL EDUCATOR BI-RADS ATLAS category (overall): 1 - Negative There is no mammographic evidence of malignancy. A 1 year screening mammogram is recommended. The patient has been or will be contacted. We recommend annual screening mammography for women at average risk of breast cancer beginning at age 40, based on guidelines of the [employer] (ACR Practice Parameter for the Performance of Screening and Diagnostic Mammography) and [employer]. For women with and elevated risk of breast cancer, please refer to the ACR Practice Parameter for specific screening recommendations. The patient will be entered into a reminder system with a target due date of 1 year for her next screening exam. Narrative 06/25/2024 4:03 PM HOSPITAL EDUCATOR Screening Mammogram Bilateral W Gustabo: 06/25/24 The [...] * Hepatitis panel, acute (07/02/2019 5:44 AM HOSPITAL EDUCATOR) HepBsAg NONREACT NONREACTIVE [facility] Comment: Siemens CentaurXP using AMY (chemiluminescent immunoassay) technology. NONREACTIVE: IgM antibodies to Hepatitis B Surface antigen not detected. REACTIVE: IgM antibodies to Hepatitis B Surface antigen detected. Reactive results will be confirmed by neutralization testing. HBsAb qn <3.10 mIU/mL [facility] Comment: Siemens CentaurXP using AMY (chemiluminescent immunoassay) technology. 9.99 IU/L or less.....NONREACTIVE: IgM antibodies to Hepatitis B Surface antibody are not detected. 10.00 IU/L or greater..REACTIVE: IgM antibodies to Hepatitis B Surface antibody are detected. Hep B core IgM NONREACT NONREACTIVE [facility] Comment: Siemens CentaurXP using AMY (chemiluminescent immunoassay) technology. NONREACTIVE: IgM antibodies to Hepatitis B Core antigen not detected. EQUIVOCAL: IgM antibodies to Hepatitis B Core antigen may or may not be present. Obtain a new specimen and retest. REACTIVE: IgM antibodies to Hepatitis B Core antigen detected. Hep A IgM NONREACT NONREACTIVE [facility] Comment: Siemens CentaurXP using AMY (chemiluminescent immunoassay) technology. NONREACTIVE: IgM antibodies to Hepatitis A not detected. This does not exclude possibility of exposure to Hepatitis A or early acute infection. EQUIVOCAL:IgM antibodies to Hepatitis A may or may not be present. Suggest recollection and retest. REACTIVE: Antibodies to Hepatitis A detected. Hep C Ab NONREACT NONREACTIVE [facility] Comment: Siemens CentaurXP using AMY [...] by real-time PCR method. 07/02/2019 5:44 AM HOSPITAL EDUCATOR 07/02/2019 5:55 AM HOSPITAL EDUCATOR Narrative Resulting Agency Comment IN Zeina Hart MD LAB MICROBIOLOGY - GENERAL OR DERABLES Final Result [id number] [place] [address] from Last 3 Months or Most Recently Relevant to Health [place] [address] [facility] AETNA MEDICARE AETNA MEDICARE Care Teams Civil Division Commander Deputy Sheriff Relationship Specialty Start Date End Date 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 NP [address] [place] [address] PCP - General Family Medicine 04/09/24
--- OUTSIDE RECORDS SUMMARY | 2024-09-04 11:42 | XMS_ITS | Clinical Summary ---
Author Organization [facility] Address [address] [place] [address] Care Team Providers Care Plastic Sheets Finishing Supervisor Name Role Phone Zhanna Wheeler MD Primary Care Provider [phone] Immunizations Name Administration Dates Next Due MODERNA [...] SCREENING JOHNNY DIGI Routine 07/28/2017 12:49 PM WOOD FILLER Screening breast examination from Last 3 Months or Most Recently Relevant to Health Maintenance Results * MG SCREENING JOHNNY DIGI (07/28/2017 12:49 PM WOOD FILLER) Anatomical Region Laterality Modality Breast Bilateral Mammography 07/28/2017 1:12 PM WOOD FILLER Impressions 07/28/2017 1:14 PM WOOD FILLER ===== IMPRESSION: ===== No mammographic evidence for neoplasm. Assessment: ACR BI-RADS Category 2 - Benign. Recommendation: 1: Routine screening mammogram bilateral in 1 year Comments: A negative or benign mammography report should not discourage follow-up or biopsy of a clinically significant finding and/or abnormality. Regions of dense breast tissue may obscure small neoplasms. Narrative 07/28/2017 1:14 PM WOOD FILLER Examination: Digital bilateral screening mammogram Exam Date/Time: [...] to Health Maintenance Insurance [employer] Care Teams Plastic Sheets Finishing Supervisor Relationship Specialty Start Date End Date Zhanna Wheeler MD PCP - General 04/20/16
[2024-09-04] MEDS: ASPIRIN 81 MG CHEWABLE TABLET 324 MG PO (11:44)
[2024-09-04 11:51] LABS: Basophils Percent Auto 0.5 % (0.2-1.2); Eosinophils Absolute Auto 0.1 K/mm3 (0-0.3); Eosinophils Percent Auto 1.6 % (0-4.4); Hemoglobin 13.4 g/dL (12.0-15.0); Immature Granulocyte Absolute 0.03 K/mm3 (0.00-0.031); Immature Granulocyte Percent A 0.5 % (0-0.5); Lymphocytes Absolute Auto 1.63 K/mm3 (0.9-3.2); Lymphocytes Percent Auto 26.6 % (18.3-44.2); Mean Corpuscular HGB Conc 33.5 g/dl (32-36); Mean Corpuscular Hemoglobin 30.5 pg (26-34); Mean Corpuscular Volume 91.1 fl (80-100); Mean Platelet Volume 9.5 fl (7.4-10.4); Monocytes Absolute Auto 0.6 K/mm3 (0.1-0.6); Monocytes Percent Auto 9.5 % (2.6-8.5); Neutrophils Absolute Auto 3.8 K/mm3 (1.3-6.7); Neutrophils Percent Auto 61.3 % (45.5-73.1); Platelet Count Result 255 k/mm3 (150-375); Red Blood Count 4.39 M/mm3 (4.2-5.4); Red Cell Distribution Width 13.1 % (11.5-14.5); White Blood Count 6.1 K/mm3 (4.5-10.0)
[2024-09-04 12:01] LABS: Alanine Aminotransferase 29 U/L (6-35); Albumin Level 4.4 g/dL (3.5-5.1); Alkaline Phosphatase 79 U/L (38-126); Anion Gap 10 mmol/L (4-12); Aspartate Amino Transferase 31 U/L (14-36); Bilirubin,Total 1.1 mg/dL (0.2-1.3); Blood Urea Nitrogen 16 mg/dL (7-17); Calcium 9.7 mg/dL (8.4-10.2); Carbon Dioxide 29 mmol/L (22-30); Chloride 100 mmol/L (98-107); Estimated CRCL calculation 66 ml/min; Estimated Glomerular Filt Rate > 60; Glucose 90 mg/dL (65-110); Lipase 77 U/L (23-300); Potassium 4.1 mmol/L (3.4-5.0); Sodium 139 mmol/L (137-145)
[2024-09-04 12:02] LABS: INR 0.9; Prothrombin Time 12.8 Seconds (11.1-14.7)
[2024-09-04 12:03] LABS: Partial Thromboplastin Time 25.3 Seconds (22.3-36.8)
[2024-09-04 12:13] LABS: Troponin I < 0.012 ng/mL (0.000-0.034)
--- NOTE | 2024-09-04 14:16 | ECG_ITS ---
Test Date: 2024-09-04 14:21:38 Measurements Intervals [place] Rate: 73 P: 33 IN: 176 QRS: -23 QRSD: 102 T: -4 QT: 374 QTc: 413 Interpretive Statements SINUS RHYTHM CANNOT R/O SEPTAL INFARCT, AGE INDETERMINATE BORDERLINE T WAVE ABNORMALITY- INFERIOR LEADS BASELINE ARTIFACT- I, II, III, AVR, AVL, AVF ABNORMAL ECG Compared to ECG 09/04/2024 11:33:03 NO SIGNIFICANT CHANGE Electronically Signed On 09-04-2024 14:26:38 DISTRICT CUSTOMS DIRECTOR by Jamal Herrera D.O.
[2024-09-04 14:48] LABS: Troponin I < 0.012 ng/mL (0.000-0.034)
--- NOTE | 2024-09-04 15:06 | ED_ITS ---
HPI - Chest Pain General Chief Complaint: Chest Pain Stated Complaint: chest pain Time Seen by Provider: 09/04/24 11:25 Source: patient Mode of arrival: ambulatory Limitations: no limitations History of Present Illness HPI narrative: 74-year-old with a history of hypertension, hyperlipidemia here with the complaints of intermittent chest pain for past few weeks. Patient states that she has midsternal chest pain which radiates to her neck into arm happened a week ago while she was eating dinner. She presently has no pain. Patient states that she call her primary doctor recommended to come to the ER she presently denies having any shortness of breath or nausea. Patient states that she had a stress test done few years ago which was normal MD complaint: chest pain Onset (ago): week(s) Timing of current episode: episodic Onset: during rest and after eating Pain location: substernal Pain radiation: left arm and neck Quality: tightness and heaviness Relieving factors: nothing Exacerbating factors: nothing Risk Factors Coronary artery disease risk factors: hyperlipidemia and hypertension Thoracic aortic dissection risk factors: none Related Data Home Medications ?Medication ?Instructions ?Recorded ?Confirmed ?Last Taken ?Type atorvastatin 40 mg tablet 40 mg PO DAILY 10/19/22 Unknown History chlorthalidone 25 mg tablet 25 mg PO DAILY 10/19/22 Unknown History citalopram 20 mg tablet 20 mg PO DAILY 10/19/22 Unknown History potassium chloride 10 mEq 10 meq PO DAILY 10/19/22 Unknown History tablet,extended release (Klor-Con) telmisartan 40 mg tablet 40 mg PO DAILY 10/19/22 Unknown History trazodone 50 mg tablet 50 mg PO QHS PRN 10/19/22 Unknown History zinc acetate 50 mg (zinc) capsule 50 mg PO DAILY 10/19/22 Unknown History (Galzin) Allergies Allergy/AdvReac Type Severity Reaction Status Date / Time latex AdvReac Mild Blister Verified 09/04/24 11:43 Review of Systems 2 Review of Systems: All systems reviewed & are unremarkable except as noted in HPI and below Constitutional: Constitutional: Reports no additional constitutional complaints Eyes: Eyes: Reports no additional eye complaints ENT: Reports system reviewed and no additional complaints, except as documented Cardiovascular: Cardiovascular: Reports as per HPI and Reports no additional cardiovascular complaints Respiratory: Respiratory: Reports no additional respiratory complaints Gastrointestinal: Gastrointestinal: Reports no additional gastrointestinal complaints Neurologic: Reports system reviewed and no additional complaints, except as documented PMFSH Past Medical History Medical History Hypertension History of vaginal delivery x2 Hyperlipidemia Surgical History Surgical History History of cholecystectomy History of section x1 History of breast surgery H/O: hysterectomy Family History Family History Father Alcoholism Mother Hypertension Depression Heart disease Social History Social History Smoking status: Current every day smoker (vapes) Tobacco type: e-cigarettes/vaping Additional smoking assessment comments: she is a former cigarette smoker Alcohol intake: current Substance use: current Lack of Transportation: No Lack of Food: Never True Current Housing: I Have Housing Concerned About Future Housing: No Difficulty Paying Gas/Electric Bills: No Difficulty Paying for Meds: No Currently Unemployed: YES Education: High School Diploma/GED Living arrangements: with family Occupation/Education: retired Gender identity (if verbalized by the patient): Female Sexual Orientation (if Verbalized by the Patient): Straight or Heterosexual Spiritual care concerns: No Exam 2 Narrative: GENERAL: Well-appearing, well-nourished, and in no acute distress. HEAD: Normocephalic, atraumatic. EYES: PERRLA and EOMI. ENT: Nares clear, no rhinorrhea or epistaxis. Mucous membranes moist. NECK: Supple. CHEST: Clear to auscultation. No respiratory distress. HEART: Regular rate and rhythm. No murmur heard. Normal peripheral pulses. ABDOMEN: Soft, nontender, nondistended, normal active bowel sounds. EXTREMITIES: Normal range of motion. No edema. SKIN: Warm, dry, no rash. NEURO: No focal deficits. Alert and oriented x3. PSYCH: Normal mood and affect. Course Course Emergency Course: Patient remained asymptomatic while she was here in the ER. Discussed with Dr. Hart, recommended a stress test either inpatient or on outpatient basis as she has no symptoms at this time. I did discuss with the patient and she chose outpatient stress test. Recommended her to return to the ER if she is having significant pain. Vital Signs Vital signs: Vital Signs Temperature 36.7 C 09/04/24 11:28 Pulse Rate 89 09/04/24 11:28 Respiratory Rate 18 09/04/24 11:28 Blood Pressure 168/94 H 09/04/24 11:28 Pulse Oximetry 100 09/04/24 11:28 Temperature 36.7 C 09/04/24 11:34 Pulse Rate 81 09/04/24 11:41 Respiratory Rate 15 09/04/24 11:34 Blood Pressure 165/96 H 09/04/24 11:34 Pulse Oximetry 99 09/04/24 11:40 Oxygen Delivery Room Air 09/04/24 11:40 MDM - Chest Pain Differential Diagnosis Differential diagnosis: Likely unstable angina pectoris and chest pain Medical Records Data Attestation: I reviewed the patient's medical records. Lab Data 09/04/24 11:42 09/04/24 11:42 Labs: Lab Results 09/04/24 09/04/24 Range/Units 11:42 14:20 WBC 6.1 (4.5-10.0) K/mm3 RBC 4.39 (4.2-5.4) M/mm3 Hgb 13.4 (12.0-15.0) g/dL Hct 40.0 (37.0-47.0) % MCV 91.1 (80-100) fl MCH 30.5 (26-34) pg MCHC 33.5 (32-36) g/dl RDW 13.1 (11.5-14.5) % Plt Count 255 (150-375) k/mm3 MPV 9.5 (7.4-10.4) fl Immature Gran % (Auto) 0.5 (0-0.5) % Neut % (Auto) 61.3 (45.5-73.1) % Lymph % (Auto) 26.6 (18.3-44.2) % Hancock % (Auto) 9.5 H (2.6-8.5) % Eos % (Auto) 1.6 (0-4.4) % Baso % (Auto) 0.5 (0.2-1.2) % Lymph # (Auto) 1.63 (0.9-3.2) K/mm3 Hancock # (Auto) 0.6 (0.1-0.6) K/mm3 Eos # (Auto) 0.1 (0-0.3) K/mm3 Baso # (Auto) 0.0 (0.0-0.1) K/mm3 Abs Immat Gran (auto) 0.03 (0.00-0.031) K/mm3 Absolute Neuts (auto) 3.8 (1.3-6.7) K/mm3 Absolute Nucleated RBC 0.000 (0.0-0.012) K/mm3 Nucleated RBC % 0.0 (0.0-0.2) % PT 12.8 (11.1-14.7) Seconds INR 0.9 APTT 25.3 (22.3-36.8) Seconds Sodium 139 (137-145) mmol/L Potassium 4.1 (3.4-5.0) mmol/L Chloride 100 (98-107) mmol/L Carbon Dioxide 29 (22-30) mmol/L Anion Gap 10 (4-12) mmol/L BUN 16 (7-17) mg/dL Creatinine 0.73 (0.7-1.0) mg/dL Estim Creat Clear Calc 66 ml/min Estimated GFR > 60 (59 - ) Glucose 90 (65-110) mg/dL Calcium 9.7 (8.4-10.2) mg/dL Total Bilirubin 1.1 (0.2-1.3) mg/dL AST 31 (14-36) U/L ALT 29 (6-35) U/L Alkaline Phosphatase 79 (38-126) U/L Troponin I < 0.012 < 0.012 (0.000-0.034) ng/mL Total Protein 7.0 (6.3-8.2) g/dL Albumin 4.4 (3.5-5.1) g/dL Lipase 77 (23-300) U/L Imaging Data Radiologist's impression: ITS Impressions Chest X-Ray 09/04/24 12:24 IMPRESSION: 1. Unchanged mild discoid atelectasis/scarring at the lingula and right lower lobe. No acute cardiopulmonary disease. ECG Data EKG #1: ECG completion date: 09/04/24 ECG completion time: 11:33 EKG Interpretation: normal rate (80), sinus rhythm, no ectopy, normal QRS and no acute changes EKG #2: ECG completion date: 09/04/24 ECG completion time: 14:21 EKG Interpretation: normal rate (73), sinus rhythm, no ectopy, normal QRS and NL axis Discharge Plan Discharge Clinical Impression: Chest pain Qualifiers: Chest pain type: unspecified Qualified Code(s): R07.9 - Chest pain, unspecified Patient Disposition: Home, Self-Care Condition: Stable Instructions: Chest Pain (ED) Additional Instructions: Continue home medications please return to the IV having significant chest pain. Patient Language: Maldivian Prescriptions: No Action atorvastatin 40 mg tablet 40 mg PO DAILY chlorthalidone 25 mg tablet 25 mg PO DAILY citalopram 20 mg tablet 20 mg PO DAILY potassium chloride [Klor-Con 10] 10 mEq tablet extended release 10 meq PO DAILY telmisartan 40 mg tablet 40 mg PO DAILY trazodone 50 mg tablet 50 mg PO QHS PRN Galzin 50 mg (zinc) capsule 50 mg PO DAILY chlorthalidone 25 mg tablet 25 mg PO DAILY Qty: 30 0RF Follow-up/Referrals: Cookie Hart MD [Physician] - UNKNOWN,DOCTOR [Primary Care Provider] - Time of Disposition: 15:15 Quality HEART score for chest pain patients History: moderately suspicious ECG: normal Age: > or = to 65 years Risk factors: 1 or 2 risk factors Troponin: < or = to 1x normal limit Heart score: 4
== END 2024-09-04 15:28 | disposition home or self-care (01) ==
PROVIDERS: Emergency Provider Family Medicine
DX: R07.9 Chest pain, unspecified (principal); R94.31 Abnormal electrocardiogram [ECG] [EKG]; I10 Essential (primary) hypertension; E78.5 Hyperlipidemia, unspecified
CPT/HCPCS: 36415; 71046; 80053; 83690; 84484; 85025; 85610; 85730; 93005; 99284; A9270

== ENCOUNTER 2025-02-10 15:48 | Emergency (ER) | payer MEDICARE, SELFPAY ==
--- NOTE | ~2025-02-10 | XR_ITS ---
EXAMINATION: XR chest 2V Exam Date/Time: 02/10/2025 16:29 CDT HISTORY: CP Comparison: 09/04/2024; CT lung screening to 1123. RESULT: Lines, tubes, and devices: Cholecystectomy clips. Lungs and pleura: Streaky bibasilar scar/atelectasis. 8mm nodular opacity projecting over the lower lobes in the lateral view. Cardiomediastinal silhouette: Stable. Other: No acute osseous or upper abdominal finding. IMPRESSION: No acute cardiopulmonary process. 8mm lower lobe nodular opacity, consider nonemergent but timely low -dose noncontrast CT of the chest for further evaluation Reviewed, dictated and finalized at location K. IMPRESSION: No acute cardiopulmonary process. 8mm lower lobe nodular opacity, consider none mergent but timely low-dose noncontrast CT of the chest for further evaluation
--- NOTE | 2025-02-10 15:49 | ECG_ITS ---
Test Date: 2025-02-10 15:52:25 Measurements Intervals [place] Rate: 96 P: 30 [place]: 166 QRS: -26 QRSD: 98 T: -12 QT: 354 QTc: 448 Interpretive Statements SINUS RHYTHM BORDERLINE LEFT AXIS DEVIATION [QRS AXIS < -20] LOW QRS VOLTAGE IN PRECORDIAL LEADS [QRS DEFLECTION < 1.0 mV IN CHEST LEADS] PATTERN CONSISTENT WITH PULMONARY DISEASE Compared to ECG 09/04/2024 14:21:38 Low QRS voltage now present Myocardial infarct finding no longer present Electronically Signed On 02-10-2025 18:07:05 CDT by Evens Siu M.D.
--- OUTSIDE RECORDS SUMMARY | 2025-02-10 15:50 | XMS_ITS | Patient Health Record ---
Author Organization [facility] Address [address] [place], [place] [id number] Care Team Providers Care Wildlife Management Professor Name Role Phone NOLVIA Lockett Unavailable Zhanna Wheeler Unavailable Unavailable Reason For Referral No Information Plan Of Treatment No Information Insurance Providers Payer Name Payer Address Payer Phone Subscriber Number Group Number Insured Name Patient Relationship to Insured Coverage Start Date Coverage End Date Medicare Part B [place] [address] [facility] [place] [address] [id number] NILSA CHAVARRIA Self - patient is the insured [facility] [address] [place], [place] [id number] NILSA CHAVARRIA Self - patient is the insured
--- OUTSIDE RECORDS SUMMARY | 2025-02-10 15:50 | XMS_ITS | Clinical Summary ---
Author Organization [facility] Address [address] [place] [address] Care Team Providers Care Texture Artist Name Role Phone Zhanna Wheeler MD Primary Care Provider [phone] Immunizations Immunization Administration Dates Next Due MODERNA COVID-19 (12+) [...] C 1969 DTaP, Tdap and Td Vaccines ( 1 - Tdap) 1970 Annual Medicare Wellness Visit 2016 Mammogram Screening 07/28/2019 07/28/2017 Pneumococcal Vaccine: 50+ Years (2 of 2 - PPSV23) 07/31/2020 07/31/2019 COVID-19 Vaccine (3 - 2023-2 5 season) 2024 09/10/2020, 08/13/2020 RSV Immunization or 60+ Years (1 - [...] 20 Months Aged Out No longer eligible b ased on patient's age to complete this topic Procedures Procedure Name Priority Date/Time Associated Diagnosis Comments MG SCREENING JOHNNY DIGI Routine 07/28/2017 12:49 PM MAINFRAME SYSTEMS ADMINISTRATOR Screening breast examination from Last 3 Months or Most Recently Relevant to Health Maintenance Results * MG SCREENING JOHNNY DIGI (07/28/2017 12:49 PM MAINFRAME SYSTEMS ADMINISTRATOR) Anatomical Region Laterality Modality Breast Bilateral Mammography 07/28/2017 1:12 PM MAINFRAME SYSTEMS ADMINISTRATOR Impressions 07/28/2017 1:14 PM MAINFRAME SYSTEMS ADMINISTRATOR ===== IMPRESSION: ===== No mammographic evidence for neoplasm. Assessment: ACR BI-RADS Category 2 - Benign. Recommendation: 1: Routine screening mammogram bilateral in 1 year Comments: A negative or benign mammography report should not discourage follow-up or biopsy of a clinically significant finding and/or abnormality. Regions of dense breast tissue may obscure small neoplasms. Narrative 07/28/2017 1:14 PM MAINFRAME SYSTEMS ADMINISTRATOR Examination: Digital bilateral screening mammogram Exam Date/Time: [...] to Health Maintenance Insurance [employer] Care Teams Texture Artist Relationship Specialty Start Date End Date Zhanna Wheeler MD PCP - General 04/20/16
--- OUTSIDE RECORDS SUMMARY | 2025-02-10 15:50 | XMS_ITS | Data Portability ---
Author Organization [facility] [employer] [facility], autoECommer Address [address] [address] Care Team Providers Care Welding Teacher Name Role Phone MARY ZHAO Instructional Resource Teacher ZHANNA SIERRA Primary Care Provider Assessment Encounter [...] reduce health risks and promote healthy living. [email or web address] Not available 04/15/2021 14:45:16 08/03/2021 08/03/2021 Patient [...] available 18:35:35 TSH, serum or plasma 2021 HERMILA Not available 13:50:59 CMP, serum or plasma 2021 HERMILA Not available 13:50:58 CMP, serum or plasma 2021 HERMILA Not available 14:12:48 CBC 2021 HERMILA Not available 14:12:48 vitamin D, 25-hydroxy , total, serum 2021 022 HERMILA Not available 14:12:49 magnesium, serum or plasma 2020 021 [email or web address] Not available 08:22:52 lipid panel w/ direct LDL, serum 2020 021 [email or web address] Not available 08:22:52 CMP, serum or plasma 2020 021 HERMILA Not available 11:42:30 CBC 2020 021 HERMILA Not available 11:42:29 TSH, serum or plasma 2020 HERMILA Not available 11:42:32 hemoglobin A1c, QN, blood 2020 021 HERMILA Not available 11:42:29 CMP, serum or plasma 2019 020 [email or web address] [facility], [address], [address], [place], [address], 0 09:33:08 CBC w/ auto diff 2019 020 [email or web address] [facility], [address], [address], [place], [address], 0 09:33:09 H pylori Ag, stool 2019 020 [email or web address] [facility], [address], [address], [place], [address], 0 09:33:09 vitamin D, 25-hydroxy , total, serum 2019 020 [email or web address] [facility], [address], [address], [place], [address], 0 09:33:09 lipid panel, serum 2019 020 [email or web address] [facility], [address], [address], [place], [address], 0 09:33:09 TSH, serum or plasma 2019 020 [email or web address] [facility], [address], [address], [place], [address], 0 09:33:[address] referral 2021 022 stephanie Carrizales MD, [address], [place], [address], 2 08:46:[address] referral 2020 021 stephanie Whiting MD, [address] [place], [address], 1 08:49:35 dermatolog ist referral 2020 021 [facility], [address] [facility] , [place], [address], 08:49:34 gastroente rologist referral 2020 021 stephanie Mccracken MD, [address] [place], [address], 1 12:49:41 ophthalmol ogist referral 2019 020 [email or web address] Arvind Barksdale MD, [address] [place], [address], 0 09:42:02 gastroente rologist referral 2019 020 [email or web address] Mccracken MD, [address] [place], [address], 0 09:42:03 Procedures None recorded. Surgeries None recorded. Imaging CT, abdomen + pelvis, w/o contrast 2021 022 [facility], [address] Jane Serrano, [facility] [address], [place], [address], 2 19:03:33 MAMMO, screening, digital, bilateral 2021 022 [email or web address] [facility] Centralized Scheduling, Centralized Scheduling, [address] [facility] , [place], [address], 2 18:35:42 bone density 2021 022 [email or web address] [facility] Centralized Scheduling, Centralized Scheduling, [address] [facility] , [place], [address], 2 18:35:42 MAMMO, screening, digital, bilateral 2020 021 [facility], [address], [address], [place], [address], 1 08:39:42 electrocar diogram 2020 [facility], [facility], [address], [place], [address], 1 08:15:06 US, echocardio gram 2020 [facility], [facility], [address], [place], [address], 1 16:46:08 bone density [address] [facility], 2022 Jane Serrano, [address], [place], [address], 2 19:02:03 CT, chest, w/o contrast 2020 021 [facility], 2022 Jane Serrano, [address], [place], [address], 1 08:39:42 MAMMO, screening, bilateral 2019 020 [email or web address] Not available 0 08:46:54 [facility] diogram 2019 [facility]20 [facility], [facility], [address], [place], [address], 0 14:28:56 bone density 2019 [facility], [facility], [address], [place], [address], 0 11:35:42 Medication Orders telmisarta n 80 mg tablet 2021 022 [facility][id number], [address] [place] [address], [id number], 2 13:51:35 ciclopirox 8 % topical solution 2021 [facility] #[id number], [address] [place] [address], [id number], 2 13:19:36 Wegovy 0.25 mg/0.5 mL subcutaneo us pen injector 2021 [facility] #32338, [address] [place] [address], [id number], 2 12:22:25 metformin 500 mg tablet 2021 022 [facility] #95681, [address] [place] [address], [id number], 2 13:08:40 chlorthali done 25 mg tablet 2019 INTERFACE [facility], [facility], [place], [address], 0 11:00:14 furosemide 20 mg tablet 2019 020 [facility], [facility], [place], [address], 0 11:00:13 telmisarta n 40 mg tablet 2019 [facility], [address], 2 13:17:29 Vitamin D3 25 mcg (1,000 unit) capsule 2019 INTERFACE [facility], [place], [address], 0 11:00:14 atorvastat in 40 mg tablet 2019 INTERFACE [facility], [place], [address], 0 11:00:16 citalopram 20 mg tablet 2019 INTERFACE [facility], [place], [address], 0 11:00:12 trazodone 50 mg tablet 2019 INTERFACE [facility], [place], [address], 0 11:00:16 potassium chloride ER 10 mEq tablet,ext ended release(ana rt/cryst) 2019 INTERFACE [facility], [place], [address], 0 11:00:13 metformin 500 mg tablet 2019 [email or web address] [facility], [place], [address], 2 13:08:40 Patient TargetsNo targets recorded. Patient Instructions Encounter Date Encounter Id Patient Instructions Last Modified By Organization Details Last Modified Time 05/22/2020 [id number] mammogram: about this test leatha Not available 05/22/2020 11:00:08 gastroesophageal reflux disease (GERD): care instructions leatha Not available 05/22/2020 10:48:26 high cholesterol : care instructions [email or web address] Not available 05/22/2020 10:48:26 body mass index: care instructions mshenouda Not available 05/22/2020 10:48:26 learning about healthy weight mshenouda Not available 05/22/2020 10:48:26 living will mshenouda Not available 11/2019 10:53:59 04/15/2021 [id number] mammogram: about this test mshenouda Not available [...] healthy weight mshenouda Not available 11/02/2021 13:19:20 02/04/[id number] diarrhea: care instructions mshenouda Not available 02/04/2022 12:24:51 abdominal pain: care instructions mshenouda Not available 02/04/2022 12:24:51 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 Referral for Benign hypertension Referring Physician: Zhanna Sierra, Internal Medicine, Encounter Date: 05/22/2020 Instructional Resource Teacher Referral for Screening for malignant neoplasm of colon Referring Physician: Zhanna Sierra Internal Medicine, Encounter Date: 05/22/2020 Instructional Resource Teacher Referral for Screening for malignant neoplasm of colon Referring Physician: Zhanna Sierra Internal Medicine, Encounter Date: 04/15/2021 Fuel Testing Technician Referral for L ocalized eruption of skin Referring Physician: Zhanna Sierra Internal Medicine, Encounter Date: 04/15/2021 Note Keeper Referral for Pa lpitations Referring Physician: Zhanna Sierra, Internal Medicine, Encounter Date: 04/15/2021 Pickle Pumper Referral for Sc reening for malignant neoplasm of cervix Referring Physician: Zhanna Sierra Internal Medicine, Encounter Date: 08/03/2021 Results Created Date Observation Date Name Description Value Unit Range Abnormal Flag Note LastModifiedBy Organization Detail LastModifiedTime 05/26/20 20 05/26/2020 elect rocneil diogr am Rate & Rhythm Not Available [facility], [facility] [address], [place], [address], 05/22/2020 10:58:31 05/26/20 20 05/26/2020 elect rocar diogr am QRS Not Available [facility], [facility] [address], [place], [address], 05/22/2020 10:58:31 05/26/20 20 05/26/2020 elect rocar diogr am TX Interval Not Available [facility], [facility] [address], [place], [address], 05/22/2020 10:58:31 05/26/20 20 05/26/2020 elect rocar diogr am QRS Duration Not Available [facility], [facility] [address], [place], [address], 05/22/2020 10:58:31 05/26/20 20 05/26/2020 elect rocar diogr am QT Interval Not Available [facility], [facility] [address], [place], [address], 05/22/2020 10:58:31 05/26/20 20 05/26/2020 elect rocar diogr am Change from Previous EKG? Not Available [facility], [facility] [address], [place], [address], 05/22/2020 10:58:31 05/26/20 20 05/26/2020 elect rocar diogr am Date of Last EKG Not Available [facility] [address], [place], [address], 05/22/2020 10:58:31 04/16/20 21 04/16/2021 HEMOG LOBIN A1C HGBA1C 5.4 % 4.0-6. 0 Testi ng Perfo rmed at: [facility], [place] [address] [facility], [address] [place] [address] Phone : Fax: Not Available [address] [place], [address], 04/17/2021 11:42:28 04/16/20 21 04/16/2021 CBC (W/O DIFF, W/ PLT) white blood cell count 5.5 thous and/u L 3.5-10 .0 Not Available [address] [place], [address], 04/17/2021 11:42:29 04/16/20 21 04/16/2021 CBC (W/O DIFF, W/ PLT) red blood cell count 4.6 christiano on/uL 3.5-5. 5 Not Available [address] Street[place], [address], 04/17/2021 11:42:29 04/16/20 21 04/16/2021 CBC (W/O DIFF, W/ PLT) hemoglobin 13.9 g/dL 11.5-1 6.5 Not Available [place] [address] [place], [address], 04/17/2021 11:42:29 04/16/20 21 04/16/2021 CBC (W/O DIFF, W/ PLT) hematocrit 44 % 35-55 Not Available [facility] [place] [address] [place], [address], 04/17/2021 11:42:29 04/16/20 21 04/16/2021 CBC (W/O DIFF, W/ PLT) MCH 30 pg 25-35 Not Available [facility] [place] [address] [place], [address], 04/17/2021 11:42:29 04/16/20 21 04/16/2021 CBC (W/O DIFF, W/ PLT) MCHC 32 g/dL 31-38 Not Available [facility] [place] [address] [place], [address], 04/17/2021 11:42:29 04/16/20 21 04/16/2021 CBC (W/O DIFF, W/ PLT) MCV 96 fL 75-100 Not Available [facility] [place] [address] [place], [address], 04/17/2021 11:42:29 04/16/20 21 04/16/2021 CBC (W/O DIFF, W/ PLT) RDW-CV 14 % 11-15 Not Available [facility] [place] [address] [place], [address], 04/17/2021 11:42:29 04/16/20 21 04/16/2021 CBC (W/O DIFF, W/ PLT) platelet count 266 thous and/u L 100-40 0 Testi ng Perfo rmed at: [facility] [address], [address] [facility] [place] [place] [address] Phone : [phone] Fax: Not Available [place] [address] [place], [address], 04/17/2021 11:42:29 04/16/20 21 04/16/2021 CMP (COMP REHEN SIVE METAB OLIC PANEL ) glucose 84 mg/dL 74-99 Not Available [facility] [place] [address] [place], [address], 04/17/2021 11:42:30 04/16/20 21 04/16/2021 CMP (COMP REHEN SIVE METAB OLIC PANEL ) urea nitrogen, blood (BUN) 17 mg/dL 8-23 Not Available [place] [address] [place], [address], 04/17/2021 11:42:30 04/16/20 21 04/16/2021 CMP (COMP REHEN SIVE METAB OLIC PANEL ) total bilirubin 0.6 mg/dL 0.0-1. 2 Not Available [place] [address] [place], [address], 04/17/2021 11:42:30 04/16/20 21 04/16/2021 CMP (COMP REHEN SIVE METAB OLIC PANEL ) total protein 7.0 g/dL 6.6-8. 7 Not Available [place] [address] [place], [address], 04/17/2021 11:42:30 04/16/20 21 04/16/2021 CMP (COMP REHEN SIVE METAB OLIC PANEL ) alanine aminotransfe rase (ALT) 21 U/L 0-33 Not Available [facility] [place] [address] [place], [address], 04/17/2021 11:42:30 04/16/20 21 04/16/2021 CMP (COMP REHEN SIVE METAB OLIC PANEL ) alkaline phosphatase 66 U/L 40-130 Not Available [facility] [place] [address] [place], [address], 04/17/2021 11:42:30 04/16/20 21 04/16/2021 CMP (COMP REHEN SIVE METAB OLIC PANEL ) aspartate aminotransfe rase (AST) 22 U/L 0-32 Not Available [facility] - [place] [address] [place], [address], 04/17/2021 11:42:30 04/16/20 21 04/16/2021 CMP (COMP REHEN SIVE METAB OLIC PANEL ) calcium 9.9 mg/dL 8.6-10 .2 Not Available [facility] [place] [address] [place], [address], 04/17/2021 11:42:30 04/16/20 21 04/16/2021 CMP (COMP REHEN SIVE METAB OLIC PANEL ) albumin 4.6 g/dL 3.5-5. 2 Not Available [facility] [place] [address] [place], [address], 04/17/2021 11:42:30 04/16/20 21 04/16/2021 CMP (COMP REHEN SIVE METAB OLIC PANEL ) CO2 33 mmol/ L 23-31 high Not Available [facility] [place] [address] [place], [address], 04/17/2021 11:42:30 04/16/20 21 04/16/2021 CMP (COMP REHEN SIVE METAB OLIC PANEL ) creatinine, serum 0.7 mg/dL 0.5-0. 9 Not Available [facility] [place] [address] [place], [address], 04/17/2021 11:42:30 04/16/20 21 04/16/2021 CMP (COMP REHEN SIVE METAB OLIC PANEL ) sodium, serum 143 mmol/ L 136-14 5 Not Available [facility] [place] [address] [place], [address], 04/17/2021 11:42:30 04/16/20 21 04/16/2021 CMP (COMP REHEN SIVE METAB OLIC PANEL ) potassium, serum 4.2 mmol/ L 3.5-5. 1 Not Available [facility] [place] [address] [place], [address], 04/17/2021 11:42:30 04/16/20 21 04/16/2021 CMP (COMP REHEN SIVE METAB OLIC PANEL ) chloride, serum 101 mmol/ L 98-107 Not Available [facility] [place] [address] [place], [address], 04/17/2021 11:42:30 04/16/20 21 04/16/2021 CMP (COMP [...] doqi. org. Not Available [facility] [place] [address] [place], [address], 04/17/2021 11:42:30 04/16/20 21 04/16/2021 LIPID PANEL trigylceride s 82 mg/dL 0-150 Not Available [facility] [place] [address] [place], [address], 04/17/2021 11:42:30 04/16/20 21 04/16/2021 LIPID PANEL cholesterol 178 mg/dL 0-200 Not Available [facility] [place] [address] [address] [place], [address], 04/17/2021 11:42:30 04/16/20 21 04/16/2021 LIPID PANEL uhdl 61 mg/dL 45-65 Not Available [place] [address] [place], [address], 04/17/2021 11:42:30 04/16/20 21 04/16/2021 LIPID PANEL LDL, calculated 101 mg/dL 0-100 high Not Available [place] [address] [place], [address], 04/17/2021 11:42:30 04/16/20 21 04/16/2021 LIPID PANEL LDL/HDL ratio 2 mg/dL 0-5 Not Available [place] [address] [place], [address], 04/17/2021 11:42:30 04/16/20 21 04/16/2021 LIPID PANEL VLDL 16.4 mg/dL 5.0-40 .0 Not Available [place] [address] [place], [place], [address], 04/17/2021 11:42:30 04/16/20 21 04/16/2021 LIPID PANEL cholesterol/ HDL ratio 2.92 0.00-5 .00 Not Available [place] [address] [address], [place], [address], 04/17/2021 11:42:30 04/16/2004/16/2021 MAGNE SIUM magnesium 2.1 mg/dL 1.6-2. 4 Not Available [facility] [place] [address] [place], [address], 04/17/2021 11:42:31 04/16/20 21 04/16/2021 THYRO ID STIMU LATIN G HORMO NE (TSH) TSH 2.79 ??IU/ mL 0.27-4 .20 Not Available [place] [address] [place], [address], 04/17/2021 11:42:32 01/17/20 22 08/03/2021 CBC (W/O DIFF, W/ PLT) white blood cell count 7.1 thous and/u L 3.5-10 .0 Not Available [place] [address] [place], [address], 08/04/2021 14:12:48 08/03/19 22 08/03/2021 CBC (W/O DIFF, W/ PLT) red blood cell count 4.8 christiano on/uL 3.5-5. 5 Not Available [place] [address] [place], [address], 08/04/2021 14:12:48 08/03/19 22 08/03/2021 CBC (W/O DIFF, W/ PLT) hemoglobin 14.5 g/dL 11.5-1 6.5 Not Available [place] [address] [address] [place], [address], 08/04/2021 14:12:48 08/03/19 22 08/03/2021 CBC (W/O DIFF, W/ PLT) hematocrit 44 % 35-55 Not Available [place] [address] [place], [address], 08/04/2021 14:12:48 08/03/19 22 08/03/2021 CBC (W/O DIFF, W/ PLT) MCH 31 pg 25-35 Not Available [place] [address] [address] [place], [address], 08/04/2021 14:12:48 08/03/19 22 08/03/2021 CBC (W/O DIFF, W/ PLT) MCHC 33 g/dL 31-38 Not Available [place] [address] [address] [place], [address], 08/04/2021 14:12:48 08/03/19 22 08/03/2021 CBC (W/O DIFF, W/ PLT) MCV 92 fL 75-100 Not Available [place] [id number] [place], [address], 08/04/2021 14:12:48 08/03/19 22 08/03/2021 CBC (W/O DIFF, W/ PLT) RDW-CV 13 % 11-15 Not Available [facility] [place] [address] [place], [address], 08/04/2021 14:12:48 08/03/19 22 08/03/2021 CBC (W/O DIFF, W/ PLT) platelet count 293 thous and/u L 100-40 0 Testi ng Perfo rmed at: [facility] [address] [facility], [address] [place] [address] Phone : [phone] Fax: Not Available [facility] [place] [address] [place], [address], 08/04/2021 14:12:48 08/03/19 22 08/03/2021 CMP (COMP REHEN SIVE METAB OLIC PANEL ) glucose 85 mg/dL 74-99 Not Available [facility] [place] [address] [place], [address], 08/04/2021 14:12:48 08/03/19 22 08/03/2021 CMP (COMP REHEN SIVE METAB OLIC PANEL ) urea nitrogen, blood (BUN) 13 mg/dL 8-23 Not Available [facility] [place] [address] [place], [address], 08/04/2021 14:12:48 08/03/19 22 08/03/2021 CMP (COMP REHEN SIVE METAB OLIC PANEL ) total bilirubin 0.8 mg/dL 0.0-1. 2 Not Available [facility] [place] [address] [place], [address], 08/04/2021 14:12:48 08/03/19 22 08/03/2021 CMP (COMP REHEN SIVE METAB OLIC PANEL ) total protein 7.6 g/dL 6.6-8. 7 Not Available [facility] [place] [address] [address], [place], [address], 08/04/2021 14:12:48 08/03/19 22 08/03/2021 CMP (COMP REHEN SIVE METAB OLIC PANEL ) alanine aminotransfe rase (ALT) 20 U/L 0-33 Not Available [facility] [place] [address] [address], [place], [address], 08/04/2021 14:12:48 08/03/19 22 08/03/2021 CMP (COMP REHEN SIVE METAB OLIC PANEL ) alkaline phosphatase 67 U/L 40-130 Not Available [facility] [place] [address] [address], [place], [address], 08/04/2021 14:12:48 08/03/19 22 08/03/2021 CMP (COMP REHEN SIVE METAB OLIC PANEL ) aspartate aminotransfe rase (AST) 24 U/L 0-32 Not Available [facility] [place] [address] [address], [place], [address], 08/04/2021 14:12:48 08/03/19 22 08/03/2021 CMP (COMP REHEN SIVE METAB OLIC PANEL ) calcium 10.0 mg/dL 8.6-10 .2 Not Available [facility] [place] [address] [address], [place], [address], 08/04/2021 14:12:48 08/03/19 22 08/03/2021 CMP (COMP REHEN SIVE METAB OLIC PANEL ) albumin 4.8 g/dL 3.5-5. 2 Not Available [facility] [place] [address] [address], [place], [address], 08/04/2021 14:12:48 08/03/19 22 08/03/2021 CMP (COMP REHEN SIVE METAB OLIC PANEL ) CO2 31 mmol/ L 23-31 Not Available [facility] [place] [address] [place], [address], 08/04/2021 14:12:48 08/03/19 22 08/03/2021 CMP (COMP REHEN SIVE METAB OLIC PANEL ) creatinine, serum 0.7 mg/dL 0.5-0. 9 Not Available [facility] [place] [address] [place], [address], 08/04/2021 14:12:48 08/03/19 22 08/03/2021 CMP (COMP REHEN SIVE METAB OLIC PANEL ) sodium, serum 138 mmol/ L 136-14 5 Not Available [facility] [place] [address] [place], [address], 08/04/2021 14:12:48 08/03/19 22 08/03/2021 CMP (COMP REHEN SIVE METAB OLIC PANEL ) potassium, serum 4.4 mmol/ L 3.5-5. 1 Not Available [facility] [place] [address] [place], [address], 08/04/2021 14:12:48 08/03/19 22 08/03/2021 CMP (COMP REHEN SIVE METAB OLIC PANEL ) chloride, serum 95 mmol/ L 98-107 low Not Available [facility] [place] [address] [place], [address], 08/04/2021 14:12:48 08/03/19 22 08/03/2021 CMP (COMP [...] doqi. org. Not Available [facility] [place] [address] [address] [place], [address], 08/04/2021 14:12:48 08/03/19 22 08/03/2021 VITAM IN D 25-HY DROXY vitamin D 39.2 NG/mL 30.0-9 6.0 Defic ient: <=20 ng/mL Insuf ficie nt: 21-29 ng/mL Suffi cient : >=30 ng/mL Not Available [facility] - [address], [place], [address], 08/04/2021 14:12:49 11/03/19 22 11/02/2021 CMP (COMP REHEN SIVE METAB OLIC PANEL ) glucose 85 mg/dL 74-99 Not Available [facility] (Main Location) [facility] [address] ,, [place], [address], 11/03/2021 13:50:58 11/03/19 22 11/02/2021 CMP (COMP REHEN SIVE METAB OLIC PANEL ) urea nitrogen, blood (BUN) 17 mg/dL 8-23 Not Available [facility] (Main Location) [facility] ,, [place], [address], 11/03/2021 13:50:58 11/03/19 22 11/02/2021 CMP (COMP REHEN SIVE METAB OLIC PANEL ) total bilirubin 0.7 mg/dL 0.0-1. 2 Not Available [facility] (Main Location) [facility] ,, [place], [address], 11/03/2021 13:50:58 11/03/19 22 11/02/2021 CMP (COMP REHEN SIVE METAB OLIC PANEL ) total protein 7.1 g/dL 6.6-8. 7 Not Available [facility] (Main Location) [facility] ,, [place], [address], 11/03/2021 13:50:58 11/03/19 22 11/02/2021 CMP (COMP REHEN SIVE METAB OLIC PANEL ) alanine aminotransfe rase (ALT) 15 U/L 0-33 Not Available [facility] (Main Location) [facility] [address] ,, [place], [address], 11/03/2021 13:50:58 11/03/19 22 11/02/2021 CMP (COMP REHEN SIVE METAB OLIC PANEL ) alkaline phosphatase 66 U/L 40-130 Not Available [facility] (Main Location) [facility] [address] ,, [place], [address], 11/03/2021 13:50:58 11/03/19 22 11/02/2021 CMP (COMP REHEN SIVE METAB OLIC PANEL ) aspartate aminotransfe rase (AST) 19 U/L 0-32 Not Available [facility] (Main Location) [facility] [address] ,, [place], [address], 11/03/2021 13:50:58 11/03/19 22 11/02/2021 CMP (COMP REHEN SIVE METAB OLIC PANEL ) calcium 9.9 mg/dL 8.6-10 .2 Not Available [facility] (Main Location) [facility] [address] ,, [place], [address], 11/03/2021 13:50:58 11/03/19 22 11/02/2021 CMP (COMP REHEN SIVE METAB OLIC PANEL ) albumin 4.8 g/dL 3.5-5. 2 Not Available [facility] (Main Location) [address] [place], [place] [address] ,, [place], [address], 11/03/2021 13:50:58 11/03/19 22 11/02/2021 CMP (COMP REHEN SIVE METAB OLIC PANEL ) CO2 30 mmol/ L 23-31 Not Available [facility] (Main Location) [facility] [address] ,, [place], [address], 11/03/2021 13:50:58 11/03/19 22 11/02/2021 CMP (COMP REHEN SIVE METAB OLIC PANEL ) creatinine, serum 0.6 mg/dL 0.5-0. 9 Not Available [facility] (Main Location) [address] ,, [place], [address], 11/03/2021 13:50:58 11/03/19 22 11/02/2021 CMP (COMP REHEN SIVE METAB OLIC PANEL ) sodium, serum 140 mmol/ L 136-14 5 Not Available [facility] (Main Location) [address] ,, [place], [address], 11/03/2021 13:50:58 11/03/19 22 11/02/2021 CMP (COMP REHEN SIVE METAB OLIC PANEL ) potassium, serum 4.4 mmol/ L 3.5-5. 1 Not Available [facility] (Main Location) [address] ,, [place], [address], 11/03/2021 13:50:58 11/03/19 22 11/02/2021 CMP (COMP REHEN SIVE METAB OLIC PANEL ) chloride, serum 100 mmol/ L 98-107 Not Available [facility] (Main Location) [address] ,, [place], [address], 11/03/2021 13:50:58 11/03/19 22 11/02/2021 CMP (COMP [...] Location) [address] ,, [place], [address], 11/03/2021 13:50:58 11/03/19 22 11/02/2021 DLDL dldl 95 mg/dL 0-100 Not Available [facility] (Main Location) [address] ,, [place], [address], 11/03/2021 13:50:58 11/03/19 22 11/02/2021 LIPID PANEL trigylceride s 81 mg/dL 0-150 Not Available [facility] (Main Location) [address] ,, [place], [address], 11/03/2021 13:50:59 11/03/19 22 11/02/2021 LIPID PANEL cholesterol 169 mg/dL 0-200 Not Available [facility] (Main Location) [address] ,, [place], [address], 11/03/2021 13:50:59 11/03/19 22 11/02/2021 LIPID PANEL uhdl 54 mg/dL 45-65 Not Available [facility] (Main Location) [facility] ,, [place], [address], 11/03/2021 13:50:59 11/03/19 22 11/02/2021 LIPID PANEL LDL, calculated 99 mg/dL 0-100 Not Available [facility] (Main Location) [facility] ,, [place], [address], 11/03/2021 13:50:59 11/03/19 22 11/02/2021 LIPID PANEL LDL, measured 95 mg/dL <99 Not Available [facility] (Main Location) [facility] ,, [place], [address], 11/03/2021 13:50:59 11/03/19 22 11/02/2021 LIPID PANEL LDL/HDL ratio 2 mg/dL 0-5 Not Available [facility] (Main Location) [facility] ,, [place], [address], 11/03/2021 13:50:59 11/03/19 22 11/02/2021 LIPID PANEL VLDL 16.2 mg/dL 5.0-40 .0 Not Available [facility] (Main Location) [facility] ,, [place], [address], 11/03/2021 13:50:59 11/03/19 22 11/02/2021 LIPID PANEL cholesterol/ HDL ratio 3.13 0.00-5 .00 Not Available [facility] (Main Location) [address] ,, [place], [address], 11/03/2021 13:50:59 11/03/19 22 11/02/2021 THYRO ID STIMU LATIN G HORMO NE (TSH) TSH 1.64 ?IU/m L 0.27-4 .20 Not Available [facility] (Main Location) [address] ,, [place], [address], 11/03/2021 13:50:59 02/05/20 22 02/04/2022 UA REFLE X TO CULTU RE specimen type URINE CLEAN CATCH Not Available [facility] (Lab) [place], [address], 02/04/2022 18:11:26 02/05/20 22 02/04/2022 UA REFLE X TO CULTU RE color YELLOW Not Available [facility] (Lab) [place], [address], 02/04/2022 18:11:26 02/05/20 22 02/04/2022 UA REFLE X TO CULTU RE clarity CLEAR Not Available [facility] (Lab) [place], [address], 02/04/2022 18:11:26 02/05/20 22 02/04/2022 UA REFLE X TO CULTU RE specific gravity 1.033 1.001- 1.030 high Not Available [facility] (Lab) [place], [address], 02/04/2022 18:11:26 02/05/20 22 02/04/2022 UA REFLE X TO CULTU RE pH, urine 6.0 5.0-9. 0 Not Available [facility] (Lab) [place], [address], 02/04/2022 18:11:26 02/05/20 22 02/04/2022 UA REFLE X TO CULTU RE leukocytes 250 neg abnormal Not Available [facility] (Lab) [place], [address], 02/04/2022 18:11:26 02/05/20 22 02/04/2022 UA REFLE X TO CULTU RE nitrite NEGATI VE neg normal Not Available [facility] (Lab) [place], [address], 02/04/2022 18:11:26 02/05/20 22 02/04/2022 UA REFLE X TO CULTU RE protein 30 mg/dL <30 high Not Available [facility] (Lab) [place], [address], 02/04/2022 18:11:26 02/05/20 22 02/04/2022 UA REFLE X TO CULTU RE glucose NORMAL mg/dL norm normal Not Available [facility] (Lab) [place], [address], 02/04/2022 18:11:26 02/05/20 22 02/04/2022 UA REFLE X TO CULTU RE ketone NEGATI VE mg/dL neg normal Not Available [facility] (Lab) [place], [address], 02/04/2022 18:11:26 02/05/20 22 02/04/2022 UA REFLE X TO CULTU RE urobilinogen 2.0 mg/dL norm abnormal Not Available [facility] (Lab) [place], [address], 02/04/2022 18:11:26 02/05/20 22 02/04/2022 UA REFLE X TO CULTU RE bilirubin NEGATI VE mg/dL neg normal Not Available [facility] (Lab) [place], [address], 02/04/2022 18:11:26 02/05/20 22 02/04/2022 UA REFLE X TO CULTU RE blood NEGATI VE neg normal Not Available [facility] (Lab) [place], [address], 02/04/2022 18:11:26 02/05/20 22 02/04/2022 UA REFLE X TO CULTU RE culture indicated SPECIM EN SETUP FOR CULTUR E Not Available [facility] (Lab) [place], [address], 02/04/2022 18:11:26 02/05/20 22 02/04/2022 UA REFLE X TO CULTU RE mucous RARE /lpf Not Available [facility] (Lab) [place], [address], 02/04/2022 18:11:26 02/05/20 22 02/04/2022 UA REFLE X TO CULTU RE WBC 13 /hpf <6 high Not Available [facility] (Lab) [place], [address], 02/04/2022 18:11:26 02/05/20 22 02/04/2022 UA REFLE X TO CULTU RE RBC 1 /hpf <6 Not Available [facility] (Lab) [address], [place], [address], 02/04/2022 18:11:26 02/05/20 22 02/04/2022 UA REFLE X TO CULTU RE squamous epithelial RARE /hpf Not Available [facility] (Lab) One [facility], [place], [address], 02/04/2022 18:11:26 02/05/20 22 02/04/2022 AMYLA SE, SERUM amylase, serum 45 U/L 28-100 Not Available [facility] (Main Location) [facility] ,, [place], [address], 02/05/2022 13:30:14 02/05/20 22 02/04/2022 CMP (COMP REHEN SIVE METAB OLIC PANEL ) glucose 95 mg/dL 74-99 Not Available [facility] (Main Location) [address] ,, [place], [address], 02/05/2022 13:30:14 02/05/20 22 02/04/2022 CMP (COMP REHEN SIVE METAB OLIC PANEL ) urea nitrogen, blood (BUN) 17 mg/dL 8-23 Not Available [facility] (Main Location) [address] ,, [place], [address], 02/05/2022 13:30:14 02/05/20 22 02/04/2022 CMP (COMP REHEN SIVE METAB OLIC PANEL ) total bilirubin 1.0 mg/dL 0.0-1. 2 Not Available [facility] (Main Location) [address] ,, [place], [address], 02/05/2022 13:30:14 02/05/20 22 02/04/2022 CMP (COMP REHEN SIVE METAB OLIC PANEL ) total protein 6.8 g/dL 6.6-8. 7 Not Available [facility] (Main Location) [facility] ,, [place], [address], 02/05/2022 13:30:14 02/05/20 22 02/04/2022 CMP (COMP REHEN SIVE METAB OLIC PANEL ) alanine aminotransfe rase (ALT) 24 U/L 0-33 Not Available [facility] (Main Location) [address] [place], [place] [address] ,, [place], [address], 02/05/2022 13:30:14 02/05/20 22 02/04/2022 CMP (COMP REHEN SIVE METAB OLIC PANEL ) alkaline phosphatase 101 U/L 40-130 Not Available [facility] (Main Location) [address] [place], [place] [address] ,, [place], [address], 02/05/2022 13:30:14 02/05/20 22 02/04/2022 CMP (COMP REHEN SIVE METAB OLIC PANEL ) aspartate aminotransfe rase (AST) 17 U/L 0-32 Not Available [facility] (Main Location) [address] [place], [place] [address] ,, [place], [address], 02/05/2022 13:30:14 02/05/20 22 02/04/2022 CMP (COMP REHEN SIVE METAB OLIC PANEL ) calcium 9.2 mg/dL 8.6-10 .2 Not Available [facility] (Main Location) [address] [place], [place] [address] ,, [place], [address], 02/05/2022 13:30:14 02/05/20 22 02/04/2022 CMP (COMP REHEN SIVE METAB OLIC PANEL ) albumin 4.2 g/dL 3.5-5. 2 Not Available [facility] (Main Location) [address] [place], [place] [address] ,, [place], [address], 02/05/2022 13:30:14 02/05/20 22 02/04/2022 CMP (COMP REHEN SIVE METAB OLIC PANEL ) CO2 29 mmol/ L 23-31 Not Available [facility] (Main Location) [address] [place], [place] [address] ,, [place], [address], 02/05/2022 13:30:14 02/05/20 22 02/04/2022 CMP (COMP REHEN SIVE METAB OLIC PANEL ) creatinine, serum 0.7 mg/dL 0.5-0. 9 Not Available [facility] (Main Location) [address] ,, [place], [address], 02/05/2022 13:30:14 02/05/20 22 02/04/2022 CMP (COMP REHEN SIVE METAB OLIC PANEL ) sodium, serum 140 mmol/ L 136-14 5 Not Available [facility] (Main Location) [address] ,, [place], [address], 02/05/2022 13:30:14 02/05/20 22 02/04/2022 CMP (COMP REHEN SIVE METAB OLIC PANEL ) potassium, serum 3.5 mmol/ L 3.5-5. 1 Not Available [facility] (Main Location) [address] ,, [place], [address], 02/05/2022 13:30:14 02/05/20 22 02/04/2022 CMP (COMP REHEN SIVE METAB OLIC PANEL ) chloride, serum 97 mmol/ L 98-107 low Not Available [facility] (Main Location) [facility] ,, [place], [address], 02/05/2022 13:30:14 02/05/20 22 02/04/2022 CMP (COMP REHEN SIVE METAB OLIC PANEL ) eGFR 84 >59 Persi stent reduc tion for 3 month s or more in an eGFR <60 mL/mi n/1.7 3 m2 defin es CKD. Patie nts with eGFR value s>/=6 0 mL/mi n/1.7 3 m2 may also have CKD if evide nce of persi stent protu niuri a is prese nt. Addit ional infor sabina n may be found at [email or web address] [email or web address]. org. Not Available [facility] (Main Location) [address] ,, [place], [address], 02/05/2022 13:30:14 02/05/20 22 02/04/2022 COMPL ETE CBC W/AUT O DIFF WBC white blood cell count 11.7 thous and/u L 3.5-10 .0 high Not Available [facility] (Main Location) [address] ,, [place], [address], 02/05/2022 13:30:15 02/05/20 22 02/04/2022 COMPL ETE CBC W/AUT O DIFF WBC red blood cell count 4.7 christiano on/uL 3.5-5. 5 Not Available [facility] (Main Location) [address] ,, [place], [address], 02/05/2022 13:30:15 02/05/20 22 02/04/2022 COMPL ETE CBC W/AUT O DIFF WBC hemoglobin 14.1 g/dL 11.5-1 6.5 Not Available [facility] (Main Location) [address] ,, [place], [address], 02/05/2022 13:30:15 02/05/20 22 02/04/2022 COMPL ETE CBC W/AUT O DIFF WBC hematocrit 44 % 35-55 Not Available [facility] (Main Location) [address] ,, [place], [address], 02/05/2022 13:30:15 02/05/20 22 02/04/2022 COMPL ETE CBC W/AUT O DIFF WBC MCH 30 pg 25-35 Not Available [facility] (Main Location) [address] ,, [place], [address], 02/05/2022 13:30:15 02/05/20 22 02/04/2022 COMPL ETE CBC W/AUT O DIFF WBC MCHC 32 g/dL 31-38 Not Available [facility] (Main Location) [address] ,, [place], [address], 02/05/2022 13:30:15 02/05/20 22 02/04/2022 COMPL ETE CBC W/AUT O DIFF WBC MCV 93 fL 75-100 Not Available [facility]Main Location[facility] [address] ,, [place], [address], 02/05/2022 13:30:15 02/05/20 22 02/04/2022 COMPL ETE CBC W/AUT O DIFF WBC RDW-CV 14 % 11-15 Not Available [facility] (Main Location) [facility] [address] ,, [place], [address], 02/05/2022 13:30:15 02/05/20 22 02/04/2022 COMPL ETE CBC W/AUT O DIFF WBC neutrophils% 71.1 % Not Available [facility] (Main Location) [facility] [address] ,, [place], [address], 02/05/2022 13:30:15 02/05/20 22 02/04/2022 COMPL ETE CBC W/AUT O DIFF WBC lymphocytes% 16.7 % Not Available [facility] (Main Location) [facility] [address] ,, [place], [address], 02/05/2022 13:30:15 02/05/20 22 02/04/2022 COMPL ETE CBC W/AUT O DIFF WBC monocytes% 6.8 % Not Available [facility] (Main Location) [facility] [address] ,, [place], [address], 02/05/2022 13:30:15 02/05/20 22 02/04/2022 COMPL ETE CBC W/AUT O DIFF WBC eosinophil % 1.8 % 0.0-7. 0 Not Available [facility] (Main Location) [facility] [address] ,, [place], [address], 02/05/2022 13:30:15 02/05/20 22 02/04/2022 COMPL ETE CBC W/AUT O DIFF WBC basophil % 0.1 % 0.0-3. 0 Not Available [facility] (Main Location) [address] ,, [place], [address], 02/05/2022 13:30:15 02/05/20 22 02/04/2022 COMPL ETE CBC W/AUT O DIFF WBC absolute neutrophils 8.3 cells /uL 1.5-7. 8 high Not Available [facility] (Main Location) [address] ,, [place], [address], 02/05/2022 13:30:15 02/05/20 22 02/04/2022 COMPL ETE CBC W/AUT O DIFF WBC absolute lymphocytes 1.95 cells /uL 0.85-3 .90 Not Available [facility] (Main Location) [address] ,, [place], [address], 02/05/2022 13:30:15 02/05/20 22 02/04/2022 COMPL ETE CBC W/AUT O DIFF WBC absolute monocytes 0.8 cells /uL 0.2-1. 0 Not Available [facility]Main Location[facility] [address] ,, [place], [address], 02/05/2022 13:30:15 02/05/20 22 02/04/2022 COMPL ETE CBC W/AUT O DIFF WBC absolute eosinophils 0.2 cells /uL 0.0-0. 5 Not Available [facility] (Main Location) [address] ,, [place], [address], 02/05/2022 13:30:15 02/05/20 22 02/04/2022 COMPL ETE CBC W/AUT O DIFF WBC absolute basophils 0.0 cells /uL 0.0-0. 2 Not Available [facility] (Main Location) [address] ,, [place], [address], 02/05/2022 13:30:15 02/05/20 22 02/04/2022 COMPL ETE CBC W/AUT O DIFF WBC platelet count 309 thous and/u L 100-40 0 Not Available [facility] (Main Location) [address] ,, [place], [address], 02/05/2022 13:30:15 02/05/20 22 02/04/2022 URINE CULTU RE header [facility] [place] [address] Patie nt:LESLY SU CIA 6350 Med Rec#: [id number] Order ing MD: MORE IRBY : [birth year] Sex: F Locat ion: [facility] B Test: URINE CULTU RE Colle ct Date: 02-04 12:33 Acces raymond #: [id number] Not Available [facility] (Lab) One [facility], [place], [address], 02/05/2022 13:42:24 02/05/20 22 02/04/2022 URINE CULTU RE urine culture SPECI MEN DESCR IPTIO N - URINE CLEAN CATCH SPECI AL REQUE STS - NO SPECI AL REQUE ST CULTU RE - POLYM ICROB IAL GROWT H CONSI STENT WITH SETH L GENIT AL MARK . SUSCE PTIBI LITIE S NOT CULTU RE - ROUTI ANA PERFO RMED. REPOR T STATU S - FINAL 02/05 Not Available [facility] (Lab) One [facility], [place], [address], 02/05/2022 13:42:24 05/22/20 20 elect florencear diogr am No observ ation record ed. [facility], [facility] [address], [place], [address], 04/15/2021 15:12:43 10/10/19 21 10/09/2020 MAMMO , scree daniel, bilat eral No observ ation record ed. leatha Not Available 2020 15:12:43 04/15/20 21 04/15/2021 elect rocar diogr am No observ ation record ed. [facility], [facility] [address], [place], [address], 08/03/2021 15:46:18 04/15/20 21 04/15/2021 US, echoc ardio gram No observ ation record ed. [facility] [address], [place], [address], 08/03/2021 15:46:18 04/16/20 21 04/15/2021 elect rocar diogr am No observ ation record ed. [facility] [address], [place], [address], 08/03/2021 15:46:18 05/14/20 21 04/22/2021 US, echoc ardio gram No observ ation record ed. [facility] [address], [place], [address], 08/03/2021 15:46:18 05/26/20 21 05/26/2021 CT, chest , w/o contr ast No observ ation record ed. [facility] [address], [place], [address], 08/03/2021 15:46:17 06/29/20 21 04/22/2021 US, echoc ardio gram No observ ation record ed. [facility] [address], [place], [address], 08/03/2021 15:46:17 11/03/19 22 07/09/2021 bone densi ty No observ ation record ed. [facility] [address], [place], [address], 02/04/2022 12:23:05 12/02/19 22 bone densi ty No observ ation record ed. [facility] Patient Access Centralized Scheduling Centralized Scheduling [address] [place], [address], 02/04/2022 12:23:39 02/12/20 22 02/11/2022 CT, abdom en + pelvi s, w/o contr ast No observ ation record ed. [facility] [address], [place], [address], 02/17/2022 12:35:05 02/25/20 22 12/31/2021 MAMMO , scree daniel, digit al, bilat eral No observ ation record ed. [facility] Patient Access Centralized Scheduling Centralized Scheduling [address] [place], [address], 10/23/2024 09:32:54 Result Notes None recorded. Problems Name Problem SNOMED Code Status Onset Date Resolution Date Notes Provider Name and Address Organization Details Recorded Time Family history of coronary arteriosc lerosis [id number] Leana mane [facility] 6 23:16:18 Family history of Hypertens ion 351988505 Leana mane [facility] 6 23:17:01 Family history of alcoholis m 895243930 Leana mane [facility] 6 23:17:25 Depressiv e disorder 92047338 Active Kesha mane [facility] 23:20:47 Benign hypertens ion 44641535 Leana mane [facility] 6 23:21:01 Gastroeso phageal reflux disease 238368909 Leana mane [facility] 23:21:23 Hyperlipi demia 69478823 Completed 04/15/2021 Zhanna [place] MD [address], [place], [address], [facility] 1 15:14:26 Osteopeni a 998142231 [facility] 23[facility] Overweigh t 970378251 [facility] 23:24:05 Mixed anxiety and depressiv e disorder 405869691 Active 2017 Zhanna Sierra MD [address], [place], [address], [place] [facility] 8 09:45:10 Body mass index 30+ - obesity 477512216 Active 2017 Zhanna Sierra MD [address], [place], [address], [facility] 8 13:29:52 History of appendect omega 867649025 Active 2018 Zhanna Sierra MD [address], [place], [address], [facility] 9 15:56:36 Solitary nodule of lung 656538113 [address] abd Zhanna [place] MD [address], [place], [address], [facility] 9 22:39:30 Mixed hyperlipi demia 746304521 Active 2019 Zhanna Sierra MD [address], [place], [address], [place] [facility] 0 10:56:50 Hypokalem ia 50932803 Active 2019 Zhanna Sierra MD [address], [place], [address], [place] [facility] 0 10:56:56 History of SARS-CoV- 2 [id number] 686926 Active 2021 Zhanna Sierra MD [address], [place], [address], [facility] 2 12:24:42 Problem Notes None recorded. Procedures Surgical History Date Name Laterality Status Provider Name and Address Organization Details Recorded Time 05/27/20 21 Colonoscopy completed Zhanna Sierra MD [address], [place], [address], [facility] 08/05/2021 19:07:45 11/13/19 19 Appendectomy completed Zhanna Sierra MD [address], [place], [address], [facility] 11/24/2018 18:21:19 07/28/19 18 Date of Last Mammogram completed Keshahussein Zendejas [facility] 11/28/2017 09:23:29 03/28/20 09 [facility] 11/28/2017 09:23:36 03/28/20 09 [facility] 11/12/2015 23:20:01 Imaging Results None recorded. Procedure Notes None recorded. Medical Equipment None Reported. Allergies Allergen ID Allergen Name Allergen Category Reaction Reaction Severity Criticality Documentation Date Start Date Code Code System Note Provider Name and Address Organization Details Recorded Time 5289 Wellbutri n medicatio n other Not available Not available 11/26/2016 96734 RxNorm Zhanna Sierra MD [address], [place], [address], [facility] 7 10:47:12 642 Benicar medicatio n Not available Not available Not available 11/12/2015 26624 3 RxNorm Kesha Zendejas [facility] 6 23:16:03 Medications Name Sig Start Date [...] propionate 50 mcg/actuati on nasal spray,suspe nsion [place] 1 spray every day by intranasa l [...] Not Available Not Available Vitals Date Recorded Systolic And Diastolic Provider Name and Address Organization Details Last Updated DateTime 08/03/2021 133/83 mm[Hg] Zhanna Sierra MD [address], [place], [address], [facility] 08/03/2021 15:46:16 Date Recorded Body height Body mass index (BMI) Body weight Body temperature Respiratory rate Heart rate Provider Name and Address Organization Details Last Updated DateTime 2 171.45 cm 33.2 kg/m2 97019.3 6 g 97.9 [degF] 16 /min 80 /min Wendy Ayala [facility] 2 15:26:36 Date Recorded Systolic And Diastolic Provider Name and Address Organization Details Last Updated DateTime 11/02/2021 133/77 mm[Hg] Zhanna Sierra MD [address], [place], [address] 11/02/2021 13:17:23 Date Recorded Body height Body mass index (BMI) Body weight Body temperature Heart rate Respiratory rate Provider Name and Address Organization Details Last Updated DateTime 2 171.45 cm 33.8 kg/m2 59842.7 3 g 98.4 [degF] 68 /min 18 /min Wendy Ayala [facility] 2 12:49:47 Date Recorded Body height Provider Name an d Address Organization Details Last Updated DateTime 02/04/2022 171[address] [facility] 02/04/2022 11:41:01 Date Recorded Systolic And Diastolic Provider Name and Address Organization Details Last Updated DateTime 04/15/2021 131/95 mm[Hg] Zhanna Sierra MD [address] [place] [address] [address], [place], [address], [facility] 04/15/2021 15:12:43 Date Recorded Body height Body mass index (BMI) Body weight Body temperature Respiratory rate Heart rate Provider Name and Address Organization Details Last Updated DateTime 1 171.45 cm 32.9 kg/m2 39106.1 7 g 97.7 [degF] 18 /min 73 /min Ivett De La Cruz [facility] 1 14:47:29 Date Recorded Body height Respiratory rate Heart rate Body temperature Body mass index (BMI) Body weight Systolic And Diastolic Provider Name and Address Organization Details Last Updated DateTime 0 171.45 cm 18 /min 84 /min 98.1 [degF] 33 kg/m2 01539.7 7 g 145/93 mm[Hg] Parvin Andrewsn [facility] 0 10:13:08 Social History Question Answer Notes LastModified by Organizat ion Details LastModified Time Tobacco Smoking Status Former Smoker Not Available [facility] 05/02/2020 03:11:41 Do You Have An Advance [...] Details LastModified Time Father Coronary arterioscler osis Not available 2015 23:18:20 Mother Coronary arterioscler osis Not available 2015 23:18:20 Mother Essential hypertension Not available 23:19:27 Sister Coronary arterioscler osis [email or web address] Not available 2015 23:18:20 Sister Essential hypertension [email or web address] Not available 23:19:27 Medical History No medical history recorded. Gynecological History Statement/Question Response Date of Last Mammogram 07/28/2017 Date of Last Colonoscopy 03/28/2009 Obstetrics History GPAL:G 0 P 0 0 0 0 Immunizations Vaccine Type Date Status Note Provider Nam e and Address Organization Details Recorded Time Influenza, split virus, quadrivalent, preservative 8 completed [facility] 15:18:47 Influenza, split virus, quadrivalent, preservative 9 completed [facility] 08/03/2021 15:18:47 Pneumococcal conjugate PCV 13 0 completed Chad Callion [facility] 08/03/2021 15:18:47 Influenza, split virus, quadrivalent, preservative 0 completed [facility] 08/03/2021 15:18:47 zoster recombinant 0 completed [facility] 08/03/2021 15:18:47 COVID-19, mRNA, LNP-S, PF, 100 mcg/0.5mL dose or 50 mcg/0.25mL dose 1 completed [facility] 08/03/2021 15:18:47 Influenza, split virus, quadrivalent, preservative 1 completed Chad Callion null, [facility] 08/03/2021 15:18:47 COVID-19, mRNA, LNP-S, PF, 100 mcg/0.5mL dose or 50 mcg/0.25mL dose 1 completed Zhanna Sierra MD [address], [place], [address], [facility] 08/03/2021 15:44:13 COVID-19, mRNA, LNP-S, PF, 100 mcg/0.5mL dose or 50 mcg/0.25mL dose 2 completed Zhanna Sierra MD [address], [place], [address], [facility] 11/02/2021 13:12:19 Influenza, split virus, trivalent, preservative 6 completed Not Available [facility] 08/04/2019 02:27:22 Past Encounters Encounter ID Performer Location Encounter Start Date Encounter Closed Date Diagnosis/Indication Diagnosis SNOMED-CT Code Diagnosis ICD10 Code Diagnosis Note [id number] Zhanna Sierra MD [facility], [facility] [address] [place] [address] 11/13/2015 15:08:08 11/13/2015 16:23:03 Benign hypertension 29389806 I10 Overweight 945055982 E66 .3 Osteopenia 618416702 M85 .80 Depressive disorder 3548 9007 F32.9 Hyperlipidemia 48416676 E78.5 Hypokalemia 67561504 E87 .6 Active or passive immunization 096600491 Z23 Viral screening 12618239 4 Z11.59 [id number] Zhanna Sierra MD [facility], [facility] [address] [place] [address] 05/26/2016 16:25:14 05/26/2016 17:13:23 Renewal of prescription 653251958 Z76.0 Benign hypertension 1072 5009 I10 Hyperlipidemia 11137254 E78.5 Depressive disorder 3548 9007 F32.9 Hypokalemia 32741642 E87 .6 Overweight 117059806 E66 .3 Osteopenia 616007295 M85 .80 Active or passive immunization 556835126 Z23 [id number] Zhanna Sierra MD [facility], [facility] [address] [place] [address] 11/26/2016 10:10:25 11/26/2016 11:06:41 Benign hypertension 94622243 I10 Hyperlipidemia 35956921 E78.5 Osteopenia 642337611 M85 .80 Depressive disorder 3548 9007 F32.9 Overweight 881167774 E66 .3 Screening for malignant neoplasm of cervix 938401732 Z12.4 per pt had PAP 04/2016 Screening for malignant neoplasm of colon 136781694 Z12.11 last C scope 2008 , good for 10 years Snoring 56497045 R06.83 Active or passive immunization 890985736 Z23 [id number] Zhanna Sierra MD [facility] [employer], [facility] [address] [place] [address] 05/30/2017 10:11:47 05/30/2017 11:49:44 Sinusitis 60259857 J32.9 Benign hypertension 1072 5009 I10 Overweight 158936944 E66 .3 Osteopenia 250031615 M85 .80 Depressive disorder 3548 9007 F32.9 Hyperlipidemia 15785440 E78.5 Screening mammography 24 672019 Z12.31 Screening for malignant neoplasm of cervix 017363084 Z12.4 Active or passive immunization 931621477 Z23 Screening for malignant neoplasm of colon 136359402 Z12.11 last C scope 2008 , good till 2018 [id number] Zhanna Sierra MD [facility], [facility] [address] [place] [address] 11/28/2017 08:59:54 11/28/2017 10:05:24 Benign hypertension 79531344 I10 Hyperlipidemia 64825640 E78.5 Osteopenia 320950565 M85 .80 last DEXA 05/26/16 Overweight 909655073 E66 .3 Screening mammography 24 908243 Z12.31 last mammogram 07/2017 Screening for malignant neoplasm of cervix 673415498 Z12.4 per pt had PAP 2017 Screening for malignant neoplasm of colon 506779951 Z12.11 last C scope 2008 , good till 2018 Insect bite - wound 2764 53916 T14.8XXA Active or passive immunization 646497622 Z23 [id number] Zhanna Sierra MD [facility], [facility] [address] [place] [address] 05/31/2018 08:51:21 05/31/2018 09:55:43 Benign hypertension 95835281 I10 per pt had optometry eval 04/2018 Osteopenia 120654711 M85 .80 last DEXA 05/26/16 Hyperlipidemia 39697395 E78.5 last LDL 11/2017 Hypokalemia 79697720 E87 .6 Mixed anxi ety and depressive disorder 160067794 F41.8 Body mass index 30+ - obesity 323347158 Z68.32 Screening mammography 24 176168 Z12.31 last mammogram 07/2017 Screening for malignant neoplasm of cervix 403519910 Z12.4 per pt had PAP 2017 Screening for malignant neoplasm of colon 921581015 Z12.11 last C scope 2008 , good till 2019 Active or passive immunization 935037147 Z23 [id number] DARRELL GRANT APN [facility], [facility] [address] [place] [address] 07/25/2018 09:09:59 07/25/2018 09:56:58 Beefy red tongue 838735640 K14.8 no inhalersno new medication s - [id number] Zhanna Sierra MD [facility], [facility] [address] [place] [address] 11/27/2018 15:18:35 11/27/2018 16:13:03 Adult health examination 260618696 Z00.01 History of appendectomy 468192868 Z90.49 2 weeks ago Benign hypertension 1072 5009 I10 per pt had optometry eval 04/2018 Body mass index 30+ - obesity 425155648 Z68.32 Mixed anxi ety and depressive disorder 415374304 F41.8 No SI, No HI Gastroesop hageal reflux disease 068202286 K21.9 Osteopenia 476872006 M85 .80 last DEXA 05/31/18 Family his tory of coronary arteriosclerosis 540012773 Z82.49 last EKG 05/31/18 Hyperlipidemia 16775573 E78.5 last LDL 11/2017 Screening mammography 24 987442 Z12.31 last mammogram 07/2018 per Pt @ [facility] Screening for malignant neoplasm of cervix 862984836 Z12.4 per pt had PAP 2017 Screening for malignant neoplasm of colon 612517050 Z12.11 last C scope 2008 , till 2018 Active or passive immunization 545119433 Z23 Impacted c erumen in right ear 7544720459 981161 H61.21 [id number] DARRELL GRANT APN [facility] [employer] [address] [place] [address] 05/25/2019 10:05:16 05/25/2019 10:31:56 Subcutaneous nodule 46722520 R22.9 just noted this am -drove from [place] the day before - lump on back of left leg - left lateral aspect of achillies - no pain in achillies no injury no redness no tenderness 9-.07/21 left ankle9.0 inches right ankle [id number] Zhanna Sierra MD [facility] [address] [place] [address] 06/18/2019 12:12:29 06/18/2019 12:46:30 Benign hypertension 15756321 I10 per pt had optometry eval 04/2018 Body mass index 30+ - obesity 101528912 Z68.32 Gastroesop hageal reflux disease 744682580 K21.9 Hyperlipidemia 24360194 E78.5 last LDL 11/2017 Mixed anxi ety and depressive disorder 514048292 F41.8 No SI, No HI Osteopenia 477653505 M85 .80 last DEXA 05/31/18 Screening for malignant neoplasm of colon 887810064 Z12.11 last C scope 2008 , till 2019 Screening mammography 24 491250 Z12.31 last mammogram 06/15/2019 per Pt @ [facility] Screening for malignant neoplasm of cervix 456716237 Z12.4 per pt had PAP 2017 Active or passive immunization 258511025 Z23 [id number] Zhanna Sierra MD [employer], [facility] [address] [place] [address] 12/17/2019 12:06:54 12/17/2019 12:29:11 Benign hypertension 66583784 I10 per pt had optometry eval 04/2018 Hypokalemia 00084538 E87 .6 Mixed anxi ety and depressive disorder 726209538 F41.8 No SI, No HI Mixed hyperlipidemia 267 357913 E78.2 last LDL 06/2019 Cough 27231237 R05 Screening mammography 24 214192 Z12.31 last mammogram 06/15/2019 per Pt @ [facility] Screening for malignant neoplasm of cervix 423490145 Z12.4 per pt had PAP 2017pt refuse Screening for malignant neoplasm of colon 396673982 Z12.11 last C scope 2008 , good till 2019 Active or passive immunization 796207578 Z23 [id number] Zhanna Sierra MD [facility] [address] [place] [address] 05/22/2020 10:06:43 05/22/2020 11:12:35 Adult health examination 496903868 Z00.01 Benign hypertension 1072 5009 I10 per pt had optometry eval 04/2020 Body mass index 30+ - obesity 031627514 Z68.32 education Gastroesop hageal reflux disease 518279423 K21.9 stable Hyperlipidemia 31922481 E78.5 last LDL 07/01/2019 Mixed anxi ety and depressive disorder 130859558 F41.8 No SI, No HI Osteopenia 243665060 M85 .80 last DEXA 05/31/18 Solitary n odule of lung 481927286 R91.[address] chest 09/20/19 Family his tory of coronary arteriosclerosis 544449579 Z82.49 last EKG 05/31/18 Preoperati ve cardiovascular examination 928420181 Z01.810 Cataract under [facility] for surg Screening for malignant neoplasm of colon 784304114 Z12.11 last C scope 2008 , good till 2019 Screening mammography 24 683614 Z12.31 last mammogram 06/15/2019 per Pt @ [facility] Screening for malignant neoplasm of cervix 258632135 Z12.4 per pt had PAP 2017pt refuse Active or passive immunization 669710307 Z23 up to date Hypokalemia 02039405 E87 .6 [id number] Zhanna Sierra MD [facility] [address] [place] [address] 04/15/2021 14:40:28 04/15/2021 15:56:10 Preoperative cardiovascular examination 763368726 Z01.810 eyelid under [facility] for surg Benign hypertension 1072 5009 I10 per pt had optometry eval 04/2020 Body mass index 30+ - obesity 858065878 Z68.32 education Gastroesop hageal reflux disease 516141700 K21.9 stable 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 No SI, No HI Mixed hyperlipidemia 267 269473 E78.2 last LDL 06/2019 Osteopenia 304088074 M85 .88 last DEXA 05/31/18 Solitary n odule of lung 293446362 R91.[address] chest 09/20/19 Screening mammography 24 305175 Z12.31 last mammogram 06/15/2019 per Pt @ [facility] Screening for malignant neoplasm of cervix 660758421 Z12.4 per pt had PAP 2017pt refuse Screening for malignant neoplasm of colon 525294840 Z12.11 last C scope 2008 , good till 2019 Active or passive immunization 477090140 Z23 up to dateper pt had flu shot Palpitations 83843575 R0 0.2 one time Localized eruption of skin 748792887 R21 [id number] Zhanna Sierra MD [facility] [address] [place] [address] 08/03/2021 15:18:33 08/03/2021 16:08:35 Adult health examination 703493446 Z00.01 Benign hypertension 1072 5009 I10 per pt had optometry eval 1las t EKG 04/15/21 Body mass index 30+ - obesity 165366114 Z68.32 education Family his tory of coronary arteriosclerosis 938275133 Z82.49 last EKG 05/31/18 Gastroesop hageal reflux disease 144199796 K21.9 stable Hypokalemia 41328530 E87 .6 recheck Mixed anxi ety and depressive disorder 302561163 F41.8 No SI, No HI Mixed hyperlipidemia 267 669559 E78.2 last LDL 04/16/21 Osteopenia 101427581 M85 .80 last DEXA 05/2021 Solitary n odule of lung 005902093 R91.[address] chest 05/26/21 , recheck 1 year Screening mammography 24 345879 Z12.31 last mammogram 3/25/21 per Pt @ [facility] Screening for malignant neoplasm of cervix 093480965 Z12.4 per pt had PAP 2017pt refuse Screening for malignant neoplasm of colon 068177054 Z12.11 last C scope 06/2021 Active or passive immunization 828528614 Z23 up to dateper pt had flu shot [id number] Zhanna Sierra MD [facility] [address] [place] [address] 11/02/2021 12:18:55 11/02/2021 13:21:18 Benign hypertension 42791004 I10 per pt had optometry eval as t EKG 04/15/21inc rease telmisarta n to 80BP 2 weeks Body mass index 30+ - obesity 902801239 Z68.32 education Gastroesop hageal reflux disease 517835255 K21.9 stable Mixed anxi ety and depressive disorder 458919818 F41.8 No SI, No HI Mixed hyperlipidemia 267 706057 E78.2 last LDL 04/16/21 Osteopenia 120214557 M85 .80 last DEXA 05/2018 Solitary n odule of lung 873171439 R91.[address] chest 05/26/21 , recheck 1 year Onychomyco sis of toenails 157860938 B35.1 big toe Screening mammography 24 258806 Z12.31 last mammogram 10/09/20 per Pt @ [facility] Screening for malignant neoplasm of cervix 515745552 Z12.4 per pt had PAP 2017pt refuse Screening for malignant neoplasm of colon 576743762 Z12.11 last C scope 06/2021 Active or passive immunization 083316282 Z23 up to dateper pt had flu shot Advance di rective discussed with patient 586847427 Z71.89 education [id number] Zhanna Sierra MD [facility] [address] [place] [address] 02/04/2022 11:11:58 02/04/2022 12:42:51 Abdominal pain 93899913 R10.9 Diarrhea 17275664 R19.7 resolved History of SARS-CoV-2 29 77411666 66115662 Z86.16 tested +ve 01/25/22 Health Concerns Section Related Observation LastModified by Organization Detai ls LastModified Time None Recorded Concern Status LastModified by Organization Details LastModified Time None Recorded Advance Directives Directive N: Payers Insurance Date Sequence Insurance Name Policy Number Policy Mina Covered Member ID Mina Member ID Guarantor Name 07/28/2021 1 [facility] [id number] Vanesa A Loehring [id number] Vanesa A Loehring 03/01/2022 1 [employer] (MEDICARE REPLACEMENT/ ADVANTAGE - HMO) Vanesa A Loehring [id number] Vanesa A Loehring 07/28/2021 1 [employer] - DOS PRIOR TO 21 - [facility] BENEFITS PLAN [id number] Vanesa A Loehring [id number] Vanesa A Loehring 07/28/2021 1 [employer] - DOS PRIOR TO 21 - [facility] BENEFITS PLAN [id number] Vanesa A Loehring [id number] Vanesa A Loehring 07/28/2021 1 [place] Vanesa A Loehring [id number] Vanesa A Loehring Notes Date Note Type Note Provider Name and Address Organization Details Recorded Time 0 text/html Medicare Annual Wellness VisitReported by PatientSocial/Behavioral HistoryFor diet and nutrition, patient reportshealthy diet. For fracture risk, patient reportsno history of fractures,no recent explained fracture,no sudden unexplained fractures, andno previous musculoskeletal injuries. For physical activity, patient reportsrecent increase in physical activity,good physical condition, anddiscussed exercise habits.Mental Status:For depression risk, patient reportsnever feels sad, empty, or tearful,no loss of interest in activities,no significant changes in weight,no sleep disturbances or insomnia,no agitation,no loss of energy,no feelings of worthlessness or guilt,no thoughts of suicide,no history of depression, andno history of mood disorders. For orientation, patient reportsno disorientation to time,no disorientation to date, andno disorientation to place. For concentration and memory, patient reportsno decreased concentrating ability,no memory lapses or loss, anddoes not forget words. For speech/motor difficulties, patient reportsno speech difficulties,no difficulty expressing formulated concepts,no difficulty with fine manipulative tasks,no difficulty writing/copying,no slowed reaction time, anddoes not knock things over when trying to pick them up.Functional AbilityFor hearing, patient reportsno loss of hearingandwears hearing aids. For vision, patient reportsno vision problems. For activities of daily living, patient reportsable to bathe with limited or no assistance,able to contol urination and bowels,able to dress with limited or no assistance,able to feed self with limited or no assistance,able to get out of chair or bed with limited or no assistance,able to groom with limited or no assistance, andable to toilet with limited or no assistance. For instrumental activities of daily living, patient reportsable to do house work with limited or no assistance,able to grocery shop with limited or no assistance,able to manage medications with limited or no assistance,able to manage money with limited or no assistance,able to prepare meals with limited or no assistance, andable to use the phone with limited or no assistance. For falls risk assessment, patient reportsno frequent falls while walking,no fall in the past year,no fall since last visit, andno dizziness/vertigo. For home safety, patient reportsuse of seatbeltsandno vision or hearing loss while driving. Hypertension F/UReported by PatientHPIFor medications, patient reportstaking medications as directedandno side effects from medication. For lifestyle, patient reportsregular exercise,limiting/avoidi ng salt, andcompliant with low salt diet. For associated symptoms, patient reportsno dizziness,no lightheadedness,no chest pain,no shortness of breath,no palpitations,no edema,no calf pain with exertion, andno headache. Zhanna Sierra MD [address] [place] [address] [address], [place], [address], [facility] 05/22/2020 11:04:31 1 text/html Hypertension F/UReported by PatientHPIFor associated symptoms, patient reportspalpitations (one episode 3 weeks ago)but reportsno dizziness,no lightheadedness,no chest pain,no shortness of breath,no edema,no calf pain with exertion, andno headache. For medications, patient reportstaking medications as directedandno side effects from medication. For lifestyle, patient reportsregular exercise,limiting/avoidi ng salt, andcompliant with low salt diet. preop eval for eye lid surg Zhanna Sierra MD [address] [facility] [address], [place], [address], [facility] 04/15/2021 15:30:44 2 text/html Medicare Annual Wellness VisitReported by PatientSocial/Behavioral HistoryFor diet and nutrition, patient reportshealthy diet. For fracture risk, patient reportsno history of fractures,no recent explained fracture,no sudden unexplained fractures, andno previous musculoskeletal injuries. For physical activity, patient reportsexercises on a regular basis,recent increase in physical activity,good physical condition, anddiscussed exercise habits.Mental Status:For depression risk, patient reportsnever feels sad, empty, or tearful,no loss of interest in activities,no significant changes in weight,no sleep disturbances or insomnia,no agitation,no loss of energy,no feelings of worthlessness or guilt,no thoughts of suicide,no history of depression, andno history of mood disorders. For orientation, patient reportsno disorientation to time,no disorientation to date, andno disorientation to place. For concentration and memory, patient reportsno decreased concentrating ability,no memory lapses or loss, anddoes not forget words. For speech/motor difficulties, patient reportsno speech difficulties,no difficulty expressing formulated concepts,no difficulty with fine manipulative tasks,no difficulty writing/copying,no slowed reaction time, anddoes not knock things over when trying to pick them up.Functional AbilityFor hearing, patient reportsno loss of hearingandwears hearing aids. For vision, patient reportsno vision problems. For activities of daily living, patient reportsable to bathe with limited or no assistance,able to contol urination and bowels,able to dress with limited or no assistance,able to feed self with limited or no assistance,able to get out of chair or bed with limited or no assistance,able to groom with limited or no assistance, andable to toilet with limited or no assistance. For instrumental activities of daily living, patient reportsable to do house work with limited or no assistance,able to grocery shop with limited or no assistance,able to manage medications with limited or no assistance,able to manage money with limited or no assistance,able to prepare meals with limited or no assistance, andable to use the phone with limited or no assistance. For falls risk assessment, patient reportsno frequent falls while walking,no fall in the past year, andno dizziness/vertigo. For home safety, patient reportsuse of seatbeltsandno vision or hearing loss while driving. Hypertension F/UReported by PatientHPIFor medications, patient reportstaking medications as directedandno side effects from medication. For lifestyle, patient reportsregular exercise,limiting/avoidi ng salt, andcompliant with low salt diet. For associated symptoms, patient reportsno dizziness,no lightheadedness,no chest pain,no shortness of breath,no palpitations,no edema,no calf pain with exertion, andno headache. Zhanna Sierra MD [address] [facility] [address], [place], [address], [facility] 08/03/2021 15:56:11 2 text/html Medicare Annual Wellness VisitReported by PatientFunctional AbilityFor falls risk assessment, patient reportsno frequent falls while walking,no fall in the past year,no fall since last visit, andno dizziness/vertigo. Hypertension F/UReported by PatientHPIFor medications, patient reportstaking medications as directedandno side effects from medication. For lifestyle, patient reportsregular exercise,limiting/avoidi ng salt, andcompliant with low salt diet. For associated symptoms, patient reportsno dizziness,no lightheadedness,no chest pain,no shortness of breath,no palpitations,no edema,no calf pain with exertion, andno headache. wants another weight meds for weight Zhanna Sierra MD [address], [place], [address], [facility] 11/02/2021 13:19:37 2 text/html Hypertension F/UReported by PatientHPIFor medications, patient reportstaking medications as directedandno side effects from medication. For lifestyle, patient reportsregular exercise,limiting/avoidi ng salt, andcompliant with low salt diet. For associated symptoms, patient reportsno dizziness,no lightheadedness,no chest pain,no shortness of breath,no palpitations,no edema,no calf pain with exertion, andno headache. I have explained the option of participating [...] pain , No N/V Zhanna Sierra MD [address] [place] [address] [address], [place], [address], [facility] 02/04/2022 12:25:40 OBGyn Episode No OBEpisode recorded.
--- OUTSIDE RECORDS SUMMARY | 2025-02-10 15:50 | XMS_ITS | Referral Summary ---
Author Organization [facility] [address] [facility] Address [address] [place] [address] Care Team Providers Care Wire Setter Name Role Phone 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 NP Primary Care Provider [phone] Encounters Date Type Department Care Team Description 11/26/2024 Orders Only [facility] Primary Care [address] [place] [address] [address] [place] [address] 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, HUMBERTO Generalized anxiety disorder from Last 3 Months Allergies Active Allergy [...] tablet (25 mg total) by mouth daily 30 tablet 11 5 11/15/19 26 Active citalopram (CeleXA) 20 mg tabletIndications:G eneralized anxiety disorder Take 1 tablet (20 mg total) by mouth daily 100 tablet 1 5 Active potassium chloride ER (KLOR-CON) 10 mEq CR tabletIndications:P rimary hypertension Take 1 tablet/capsu le (10 mEq total) by mouth daily 90 tablet/capsu le 5 Active traZODone (DESYREL) 50 mg tabletIndications:G eneralized anxiety disorder Take 1 tablet (50 mg total) by mouth nightly 90 tablet 1 5 Active atorvastatin (LIPITOR) 40 mg tabletIndications:M ixed hyperlipidemia TAKE 1 TABLET DAILY 90 tablet 1 5 Active telmisartan (MICARDIS) 40 mg tabletIndications:P rimary hypertension TAKE 1 TABLET DAILY 100 tablet 5 Active Active Problems Problem Noted Date Diagnosed Date Vaping nicotine dependence, tobacco product 07/18 Assessment & Plan (08/03/2024 5:03 PM SWITCHBOARD OPERATOR ASSISTANT): Chronic, patient not interested in quitting at this time. Last chest CT completed in 09/2019, no pulmonary nodule noted at that time. Patient is not interested in repeat chest CT at this time. Medicare annual wellness visit, subsequent 06/14 Assessment & Plan (08/03/2024 5:07 PM SWITCHBOARD OPERATOR ASSISTANT): CBC, CMP, lipid panel ordered. Mammogram last completed: 06/2024 DEXA ordered. Colonoscopy last completed: 05/2021 repeat in 05/2031 Vaccinations: COVID, Shingrix, Prevnar, Pneumovax, and Flu vaccines UTD. Repeat wellness exam in one year. Assessment & Plan (06/16/2023 2:29 PM SWITCHBOARD OPERATOR ASSISTANT): Healthcare maintenance updated Assessment & Plan (06/14/2022 1:30 PM SWITCHBOARD OPERATOR ASSISTANT): Healthcare maintenance updated Generalized anxiety disorder 06/14/2022 Assessment & Plan (08/03/2024 5:05 PM SWITCHBOARD OPERATOR ASSISTANT): Chronic, controlled with Celexa 20 mg daily. Follow up yearly. Assessment & Plan (12/14/2023 6:37 AM CDT): This appears to be well controlled, continue current meds, follow-up routine Assessment & Plan (06/16/2023 2:28 PM SWITCHBOARD OPERATOR ASSISTANT): This appears to be well controlled, continue current meds, follow-up routine Assessment & Plan (12/30/2022 10:37 AM CDT): This is well controlled with no HI SI will continue to follow Assessment & Plan (07/01/2022 11:48 AM SWITCHBOARD OPERATOR ASSISTANT): Well controlled Assessment & Plan (06/14/2022 1:29 PM SWITCHBOARD OPERATOR ASSISTANT): This is well controlled with no SI HI, continue current meds follow-up routine Primary hypertension 06/14/2022 Assessment & Plan (08/01/2024 12:41 PM SWITCHBOARD OPERATOR ASSISTANT): Chronic, controlled. Patient to continue Micardis 40 [...] routine Assessment & Plan (06/16/2023 2:28 PM SWITCHBOARD OPERATOR ASSISTANT): This is not controlled and after reviewing [...] routine Assessment & Plan (07/01/2022 11:49 AM SWITCHBOARD OPERATOR ASSISTANT): Images from the original note were not included. This is a stable chronic condition. Monitor blood pressure, call if out of parameters as we discussed. Low sodium and caffeine diet. baby asa as discussed if applicable. Diet, exercise and weight reduction. Labs as ordered. F/U routine Assessment & Plan (06/14/2022 1:30 PM SWITCHBOARD OPERATOR ASSISTANT): Patient has no history of heart failure [...] 06/14/2022 Assessment & Plan (08/03/2024 5:05 PM SWITCHBOARD OPERATOR ASSISTANT): Chronic, controlled. Patient to continue on atorvastatin [...] routine. Assessment & Plan (07/01/2022 11:49 AM SWITCHBOARD OPERATOR ASSISTANT): Patient is to continue present medications, work on diet and exercise as discussed, we did discuss the medications and potential side effects and signs and symptoms that would warrant calling office. Follow up routine. Assessment & Plan (06/14/2022 1:29 PM SWITCHBOARD OPERATOR ASSISTANT): Patient is to continue present medications, work on diet and exercise as discussed, we did discuss the medications and potential side effects and signs and symptoms that would warrant calling office. Follow up routine. Vitamin D deficiency 06/14/2022 Assessment & Plan (08/03/2024 5:07 PM SWITCHBOARD OPERATOR ASSISTANT): Chronic, controlled with daily vitamin D supplement. Follow up yearly. Assessment & Plan (12/14/2023 6:37 AM CDT): Continue vitamin-D Assessment & Plan (06/16/2023 2:29 PM SWITCHBOARD OPERATOR ASSISTANT): Continue vitamin-D Assessment & Plan (12/30/2022 10:38 AM CDT): Continue vitamin-D Assessment & Plan (07/01/2022 11:42 AM SWITCHBOARD OPERATOR ASSISTANT): Increase to 5000 Pulmonary nodule 07/31/2019 Assessment & Plan (06/16/2023 2:29 PM SWITCHBOARD OPERATOR ASSISTANT): CT lung screening ordered Assessment & Plan (09/29/2019 4:36 PM CDT): CT scan of the chest shows no concerning pulmonary nodules or masses. Assessment & Plan (07/31/2019 4:21 PM SWITCHBOARD OPERATOR ASSISTANT): Will follow-up with a CT scan of [...] chest. Assessment & Plan (07/31/2019 4:22 PM SWITCHBOARD OPERATOR ASSISTANT): Will obtain full set of PFTs. Patient quit smoking few years ago. Gastroesophageal reflux disease 07/30/2019 Assessment & Plan (08/03/2024 4:59 PM SWITCHBOARD OPERATOR ASSISTANT): Chronic, controlled with diet. Assessment & Plan [...] understanding Assessment & Plan (06/16/2023 2:28 PM SWITCHBOARD OPERATOR ASSISTANT): Avoid spicy, fried, greasy foods Keep hydrated [...] understanding Assessment & Plan (07/01/2022 11:48 AM SWITCHBOARD OPERATOR ASSISTANT): Images from the original note were not [...] 08/03/2024 Assessment & Plan (07/01/2022 11:50 AM SWITCHBOARD OPERATOR ASSISTANT): Sending to derm also with lines in [...] on file Legal Sex Female 2:00 AM SWITCHBOARD OPERATOR ASSISTANT Gender Identity Not on file Sexual Orientation Not on file Last Filed Vital Signs Vital Sign Reading Time Taken Comments Blood Pressure 122/82 08/01/2024 12:17 PM SWITCHBOARD OPERATOR ASSISTANT Pulse 70 08/01/2024 12:17 PM SWITCHBOARD OPERATOR ASSISTANT Temperature 36.8 C (98.2 F) 08/01/2024 12:17 PM SWITCHBOARD OPERATOR ASSISTANT Respiratory Rate 20 08/01/2024 12:1 7 PM SWITCHBOARD OPERATOR ASSISTANT Oxygen Saturation 96% 08/01/2024 12: 17 PM SWITCHBOARD OPERATOR ASSISTANT Inhaled Oxygen Concentration - - Weight 85.7 kg (188 lb 14.4 oz) 025 12:17 PM SWITCHBOARD OPERATOR ASSISTANT Height 168.9 cm (5' 6.5) 08/01/2024 12 :17 PM SWITCHBOARD OPERATOR ASSISTANT Body Mass Index 30.04 08/01/2024 12:17 PM SWITCHBOARD OPERATOR ASSISTANT Plan of Treatment Not on file Procedures Procedure Name Priority Date/Time Associated Diagnosis Comments SCREENING MAMMOGRAM BILATERAL W EBENEZER Schedule Routine, Read Routine (OP Routine) 06/25/2024 3:48 PM SWITCHBOARD OPERATOR ASSISTANT Screening mammogram, encounter for COLONOSCOPY Routine 05/27/2021 HEPATITIS PANEL, ACUTE Routine 07/02/2019 5:44 AM SWITCHBOARD OPERATOR ASSISTANT from Last 3 Months or Most Recently Relevant to Health Maintenance Results * Screening Mammogram Bilateral W Ebenezer (06/25/2024 3:48 PM SWITCHBOARD OPERATOR ASSISTANT) Anatomical Region Laterality Modality Breast Bilateral Mammography Impressions 06/25/2024 4:03 PM SWITCHBOARD OPERATOR ASSISTANT BI-RADS ATLAS category (overall): 1 - Negative There is no mammographic evidence of malignancy. A 1 year screening mammogram is recommended. The patient has been or will be contacted. We recommend annual screening mammography for women at average risk of breast cancer beginning at age 40, based on guidelines of the [employer] (ACR Practice Parameter for the Performance of Screening and Diagnostic Mammography) and [employer]. For women with and elevated risk of breast cancer, please refer to the ACR Practice Parameter for specific screening recommendations. The patient will be entered into a reminder system with a target due date of 1 year for her next screening exam. Narrative 06/25/2024 4:03 PM SWITCHBOARD OPERATOR ASSISTANT Screening Mammogram Bilateral W Ebenezer: 06/25/24 The [...] Anatomical Region Laterality Modality Other Historical Provider ENDOSCOPY PROCEDURES Sneha l Result * Hepatitis panel, acute (07/02/2019 5:44 AM SWITCHBOARD OPERATOR ASSISTANT) HepBsAg NONREACT NONREACTIVE [facility] Comment: Siemens CentaurXP using AMY (chemiluminescent immunoassay) technology. NONREACTIVE: IgM antibodies to Hepatitis B Surface antigen not detected. REACTIVE: IgM antibodies to Hepatitis B Surface antigen detected. Reactive results will be confirmed by neutralization testing. HBsAb qn <3.10 mIU/mL [facility] Comment: Siemens CentaurXP using AMY (chemiluminescent immunoassay) technology. 9.99 IU/L or less.....NONREACTIVE: IgM antibodies to Hepatitis B Surface antibody are not detected. 10.00 IU/L or greater..REACTIVE: IgM antibodies to Hepatitis B Surface antibody are detected. Hep B core IgM NONREACT NONREACTIVE [facility] Comment: Siemens CentaurXP using AMY (chemiluminescent immunoassay) technology. NONREACTIVE: IgM antibodies to Hepatitis B Core antigen not detected. EQUIVOCAL: IgM antibodies to Hepatitis B Core antigen may or may not be present. Obtain a new specimen and retest. REACTIVE: IgM antibodies to Hepatitis B Core antigen detected. Hep A IgM NONREACT NONREACTIVE [facility] Comment: Siemens CentaurXP using AMY (chemiluminescent immunoassay) technology. NONREACTIVE: IgM antibodies to Hepatitis A not detected. This does not exclude possibility of exposure to Hepatitis A or early acute infection. EQUIVOCAL:IgM antibodies to Hepatitis A may or may not be present. Suggest recollection and retest. REACTIVE: Antibodies to Hepatitis A detected. Hep C Ab NONREACT NONREACTIVE [facility] Comment: Siemens CentaurXP using AMY (chemiluminescent [...] by real-time PCR method. 07/02/2019 5:44 AM SWITCHBOARD OPERATOR ASSISTANT 07/02/2019 5:55 AM SWITCHBOARD OPERATOR ASSISTANT Narrative Resulting Agency Comment IN Zeina Hart MD LAB MICROBIOLOGY - GENERAL OR DERABLES Final Result [address] [address], [facility] [phone] from Last 3 Months or Most Recently Relevant to Health [place] [address] [facility] ADV REF [facility] MEDICARE AETNA MEDICARE Care Teams Wire Setter Relationship Specialty Start Date End Date 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 NP [address] [place] [id number] PCP - General Family Medicine 04/09/24
--- OUTSIDE RECORDS SUMMARY | 2025-02-10 15:50 | XMS_ITS | Clinical Summary ---
Author Organization [facility] [address] [facility] Address [address] [place] [address] Care Team Providers Care Case Checker Name Role Phone 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 NP Primary Care Provider [phone] Allergies Active Allergy Reactions Criticality Noted Date [...] 07/18 Assessment & Plan (08/03/2024 5:03 PM INSPECTOR HANDBAG FRAMES): Chronic, patient not interested in quitting at this time. Last chest CT completed in 09/2019, no pulmonary nodule noted at that time. Patient is not interested in repeat chest CT at this time. Medicare annual wellness visit, subsequent 06/14 Assessment & Plan (08/03/2024 5:07 PM INSPECTOR HANDBAG FRAMES): CBC, CMP, lipid panel ordered. Mammogram last completed: 06/2024 DEXA ordered. Colonoscopy last completed: 05/2021 repeat in 05/2031 Vaccinations: COVID, Shingrix, Prevnar, Pneumovax, and Flu vaccines UTD. Repeat wellness exam in one year. Assessment & Plan (06/16/2023 2:29 PM INSPECTOR HANDBAG FRAMES): Healthcare maintenance updated Assessment & Plan (06/14/2022 1:30 PM INSPECTOR HANDBAG FRAMES): Healthcare maintenance updated Generalized anxiety disorder 06/14/2022 Assessment & Plan (08/03/2024 5:05 PM INSPECTOR HANDBAG FRAMES): Chronic, controlled with Celexa 20 mg daily. Follow up yearly. Assessment & Plan (12/14/2023 6:37 AM CDT): This appears to be well controlled, continue current meds, follow-up routine Assessment & Plan (06/16/2023 2:28 PM INSPECTOR HANDBAG FRAMES): This appears to be well controlled, continue current meds, follow-up routine Assessment & Plan (12/30/2022 10:37 AM CDT): This is well controlled with no HI SI will continue to follow Assessment & Plan (07/01/2022 11:48 AM INSPECTOR HANDBAG FRAMES): Well controlled Assessment & Plan (06/14/2022 1:29 PM INSPECTOR HANDBAG FRAMES): This is well controlled with no SI HI, continue current meds follow-up routine Primary hypertension 06/14/2022 Assessment & Plan (08/01/2024 12:41 PM INSPECTOR HANDBAG FRAMES): Chronic, controlled. Patient to continue Micardis 40 [...] routine Assessment & Plan (06/16/2023 2:28 PM INSPECTOR HANDBAG FRAMES): This is not controlled and after reviewing [...] routine Assessment & Plan (07/01/2022 11:49 AM INSPECTOR HANDBAG FRAMES): Images from the original note were not included. This is a stable chronic condition. Monitor blood pressure, call if out of parameters as we discussed. Low sodium and caffeine diet. baby asa as discussed if applicable. Diet, exercise and weight reduction. Labs as ordered. F/U routine Assessment & Plan (06/14/2022 1:30 PM INSPECTOR HANDBAG FRAMES): Patient has no history of heart failure [...] 06/14/2022 Assessment & Plan (08/03/2024 5:05 PM INSPECTOR HANDBAG FRAMES): Chronic, controlled. Patient to continue on atorvastatin [...] routine. Assessment & Plan (07/01/2022 11:49 AM INSPECTOR HANDBAG FRAMES): Patient is to continue present medications, work on diet and exercise as discussed, we did discuss the medications and potential side effects and signs and symptoms that would warrant calling office. Follow up routine. Assessment & Plan (06/14/2022 1:29 PM INSPECTOR HANDBAG FRAMES): Patient is to continue present medications, work on diet and exercise as discussed, we did discuss the medications and potential side effects and signs and symptoms that would warrant calling office. Follow up routine. Vitamin D deficiency 06/14/2022 Assessment & Plan (08/03/2024 5:07 PM INSPECTOR HANDBAG FRAMES): Chronic, controlled with daily vitamin D supplement. Follow up yearly. Assessment & Plan (12/14/2023 6:37 AM CDT): Continue vitamin-D Assessment & Plan (06/16/2023 2:29 PM INSPECTOR HANDBAG FRAMES): Continue vitamin-D Assessment & Plan (12/30/2022 10:38 AM CDT): Continue vitamin-D Assessment & Plan (07/01/2022 11:42 AM INSPECTOR HANDBAG FRAMES): Increase to 5000 Pulmonary nodule 07/31/2019 Assessment & Plan (06/16/2023 2:29 PM INSPECTOR HANDBAG FRAMES): CT lung screening ordered Assessment & Plan (09/29/2019 4:36 PM CDT): CT scan of the chest shows no concerning pulmonary nodules or masses. Assessment & Plan (07/31/2019 4:21 PM INSPECTOR HANDBAG FRAMES): Will follow-up with a CT scan of [...] chest. Assessment & Plan (07/31/2019 4:22 PM INSPECTOR HANDBAG FRAMES): Will obtain full set of PFTs. Patient quit smoking few years ago. Gastroesophageal reflux disease 07/30/2019 Assessment & Plan (08/03/2024 4:59 PM INSPECTOR HANDBAG FRAMES): Chronic, controlled with diet. 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 History of severe acute resp iratory syndrome coronavirus 2 (SARS-CoV-2) disease 02/04/202208/03 Hypokalemia 05/21/2020 08/03/2024 Mixed anxiety and depressive disorder 05/30/2018 08/01/2024 Encounter for orthopedic follow-up care 03/12/2015 08/03/2024 Fracture of foot 09/21/2011 08/01/2024 Closed fracture of tibial plateau 09/21/2011 06/14/2022 Encounters Date Type Department Care Team Description 11/26/2024 Orders Only [facility] Primary Care [address] [place] [address] [address] [place] [address] 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, 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 Generalized anxiety disorder from Last 3 Months Immunizations Immunization Administration [...] Former Cigarettes 1 40 1 972 - 2012 Smokeless Tobacco: Never Tobacco Cessation:Counseling Given: Not [...] on file Legal Sex Female 2:00 AM INSPECTOR HANDBAG FRAMES Gender Identity Not on file Sexual Orientation Not on file Obstetrics History Para Term AB IAB SAB Ectopic Multiple Livin g Live Births 3 3 3 Date Outcome GA Total Labor Labor/2nd/3rd Weight Sex Type Anes PTL Lis A1 A5 Name Clin Term Term Term Last Filed Vital Signs Vital Sign Reading Time Taken Comments Blood Pressure 122/82 08/01/2024 12:17 PM INSPECTOR HANDBAG FRAMES Pulse 70 08/01/2024 12:17 PM INSPECTOR HANDBAG FRAMES Temperature 36.8 C (98.2 F) 08/01/2024 12:17 PM INSPECTOR HANDBAG FRAMES Respiratory Rate 20 08/01/2024 12:1 7 PM INSPECTOR HANDBAG FRAMES Oxygen Saturation 96% 08/01/2024 12: 17 PM INSPECTOR HANDBAG FRAMES Inhaled Oxygen Concentration - - Weight 85.7 kg (188 lb 14.4 oz) 025 12:17 PM INSPECTOR HANDBAG FRAMES Height 168.9 cm (5' 6.5) 08/01/2024 12 :17 PM INSPECTOR HANDBAG FRAMES Body Mass Index 30.04 08/01/2024 12:17 PM INSPECTOR HANDBAG FRAMES Plan of Treatment Health Maintenance Due Date Last Done Comments Hepatitis B Screening 1969 Lung Cancer Screening 2001 Covid-19 Vaccine ( season) 2024 05/25/2024, 04/28/2022, 10/26/2021, Additional history exists Influenza Vaccine (#1) 2025 , 04/08/2023, 04/08/2023, Additional history exists Breast Cancer Screening-Mammogram 06/25/2025 [...] Discontinued 05/27/2021 Colon Cancer Screening-Sigmoidoscopy Discontinued 05/27/2021 DTaP/Tdap/Td Vaccine Discontinued Procedures Procedure Name Priority Date/Time Associated Diagnosis Comments SCREENING MAMMOGRAM BILATERAL W EBENEZER Schedule Routine, Read Routine (OP Routine) 06/25/2024 3:48 PM INSPECTOR HANDBAG FRAMES Screening mammogram, encounter for COLONOSCOPY Routine 05/27/2021 HEPATITIS PANEL, ACUTE Routine 07/02/2019 5:44 AM INSPECTOR HANDBAG FRAMES from Last 3 Months or Most Recently Relevant to Health Maintenance Results * Screening Mammogram Bilateral W Ebenezer (06/25/2024 3:48 PM INSPECTOR HANDBAG FRAMES) Anatomical Region Laterality Modality Breast Bilateral Mammography Impressions 06/25/2024 4:03 PM INSPECTOR HANDBAG FRAMES BI-RADS ATLAS category (overall): 1 - Negative There is no mammographic evidence of malignancy. A 1 year screening mammogram is recommended. The patient has been or will be contacted. We recommend annual screening mammography for women at average risk of breast cancer beginning at age 40, based on guidelines of the [place] [employer] (ACR Practice Parameter for the Performance of Screening and Diagnostic Mammography) and [place] [employer]. For women with and elevated risk of breast cancer, please refer to the ACR Practice Parameter for specific screening recommendations. The patient will be entered into a reminder system with a target due date of 1 year for her next screening exam. Narrative 06/25/2024 4:03 PM INSPECTOR HANDBAG FRAMES Screening Mammogram Bilateral W Ebenezer: 06/25/24 The [...] * Hepatitis panel, acute (07/02/2019 5:44 AM INSPECTOR HANDBAG FRAMES) HepBsAg NONREACT NONREACTIVE [facility] Comment: Siemens CentaurXP using AMY (chemiluminescent immunoassay) technology. NONREACTIVE: IgM antibodies to Hepatitis B Surface antigen not detected. REACTIVE: IgM antibodies to Hepatitis B Surface antigen detected. Reactive results will be confirmed by neutralization testing. HBsAb qn <3.10 mIU/mL [facility] Comment: Siemens CentaurXP using AMY (chemiluminescent immunoassay) technology. 9.99 IU/L or less.....NONREACTIVE: IgM antibodies to Hepatitis B Surface antibody are not detected. 10.00 IU/L or greater..REACTIVE: IgM antibodies to Hepatitis B Surface antibody are detected. Hep B core IgM NONREACT NONREACTIVE [facility] Comment: Siemens CentaurXP using AMY (chemiluminescent immunoassay) technology. NONREACTIVE: IgM antibodies to Hepatitis B Core antigen not detected. EQUIVOCAL: IgM antibodies to Hepatitis B Core antigen may or may not be present. Obtain a new specimen and retest. REACTIVE: IgM antibodies to Hepatitis B Core antigen detected. Hep A IgM NONREACT NONREACTIVE [facility] Comment: Siemens CentaurXP using AMY (chemiluminescent immunoassay) technology. NONREACTIVE: IgM antibodies to Hepatitis A not detected. This does not exclude possibility of exposure to Hepatitis A or early acute infection. EQUIVOCAL:IgM antibodies to Hepatitis A may or may not be present. Suggest recollection and retest. REACTIVE: Antibodies to Hepatitis A detected. Hep C Ab NONREACT NONREACTIVE [facility] Comment: Siemens CentaurXP using AMY [...] by real-time PCR method. 07/02/2019 5:44 AM INSPECTOR HANDBAG FRAMES 07/02/2019 5:55 AM INSPECTOR HANDBAG FRAMES Narrative Resulting Agency Comment IN us Zeina Hart MD LAB MICROBIOLOGY - GENERAL OR DERABLES Final Result [id number] [place] [address] from Last 3 Months or Most Recently Relevant to [place] [address] [facility] ADV REF [facility] AETNA MEDICARE [facility] [place] [address] AETNA MEDICARE Care Teams Case Checker Relationship Specialty Start Date End Date 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 NP [address] [place] [id number] PCP - General Family Medicine 04/09/24
[2025-02-10 16:02] VITALS: BP 132/80; PULSE 90; RESP 18; TEMP 36.6; O2SAT 97
[2025-02-10 16:06] LABS: Hematocrit 38.2 % (37.0-47.0); Hemoglobin 12.7 g/dL (12.0-15.0); Immature Granulocyte Percent A 0.4 % (0-0.5); Lymphocytes Absolute Auto 2.04 K/mm3 (0.9-3.2); Mean Corpuscular HGB Conc 33.2 g/dl (32-36); Mean Corpuscular Hemoglobin 30.0 pg (26-34); Mean Corpuscular Volume 90.3 fl (80-100); Nucleated Red Blood Cells Absolute Auto 0.000 K/mm3 (0.0-0.012); Nucleated Red Blood Cells Perc 0.0 % (0.0-0.2); Platelet Count Result 275 k/mm3 (150-375); Red Blood Count 4.23 M/mm3 (4.2-5.4); White Blood Count 9.9 K/mm3 (4.5-10.0)
[2025-02-10 16:18] LABS: INR 1.0; Partial Thromboplastin Time 25.4 Seconds (22.3-36.8); Prothrombin Time 13.2 Seconds (11.1-14.7)
[2025-02-10 16:24] LABS: Alanine Aminotransferase 28 U/L (6-35); Albumin Level 4.2 g/dL (3.5-5.1); Alkaline Phosphatase 111 U/L (38-126); Anion Gap 7 mmol/L (4-12); Aspartate Amino Transferase 41 U/L (14-36); Bilirubin,Total 0.7 mg/dL (0.2-1.3); Blood Urea Nitrogen 14 mg/dL (7-17); Calcium 9.8 mg/dL (8.4-10.2); Carbon Dioxide 29 mmol/L (22-30); Chloride 101 mmol/L (98-107); Estimated CRCL calculation 60 ml/min; Estimated Glomerular Filt Rate > 60; Glucose 129 mg/dL (65-110); Lipase 99 U/L (23-300); Potassium 3.5 mmol/L (3.4-5.0); Sodium 137 mmol/L (137-145); Total Protein 7.7 g/dL (6.3-8.2)
[2025-02-10 16:30] LABS: Troponin I < 0.012 ng/mL (0.000-0.034)
--- NOTE | 2025-02-10 18:26 | ED_ITS ---
HPI - Chest Pain General Chief Complaint: Chest Pain Stated Complaint: HAVING AHEART ATTACK Time Seen by Provider: 02/10/25 18:25 Source: patient Mode of arrival: ambulatory Limitations: no limitations History of Present Illness HPI narrative: Patient presents with concern for chest pain. 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 She is concerned she is having a heart attack. Symptoms started at 1400. Worse with bending over. Pain did not radiate into arm but she found it difficult to use her left arm. Denies indigestion/heartburn. No edema or shortness of breath. This has never happened before. Saw a distributing clerk previously but no longer follows regularly with them. Had not eaten today until just at the time of my interaction. Not dizzy. Has a PCP. Cardiac risk factors HTN: Yes (on meds) HLD: Yes (on meds) DM: No Obese: No (borderline by measurements today, which show BMI 29.9) Smoker:No Personal history RI/TIA/CVA: No Fam Hx RI in first degree relative <65yo: Yes, both mom and dad Related Data Home Medications ?Medication ?Instructions ?Recorded ?Confirmed ?Last Taken ?Type atorvastatin 40 mg tablet 40 mg PO DAILY 10/19/22 Unknown History chlorthalidone 25 mg tablet 25 mg PO DAILY 10/19/22 Unknown History citalopram 20 mg tablet 20 mg PO DAILY 10/19/22 Unknown History potassium chloride 10 mEq 10 meq PO DAILY 10/19/22 Unknown History tablet,extended release (Klor-Con) telmisartan 40 mg tablet 40 mg PO DAILY 10/19/22 Unknown History trazodone 50 mg tablet 50 mg PO QHS PRN 10/19/22 Unknown History zinc acetate 50 mg (zinc) capsule 50 mg PO DAILY 10/19/22 Unknown History (Galzin) Allergies Allergy/AdvReac Type Severity Reaction Status Date / Time latex AdvReac Mild Blister Verified 09/04/24 11:43 [facility] Past Medical History Medical History Hypertension History of vaginal delivery x2 Hyperlipidemia Surgical History Surgical History History of cholecystectomy History of section x1 History of breast surgery H/O: hysterectomy Family History Family History Father Alcoholism Heart attack <65yo Mother Hypertension Depression Heart disease Heart attack <65yo Social History Social History Smoking status: Current every day smoker (vapes) Tobacco type: e-cigarettes/vaping Additional smoking assessment comments: she is a former cigarette smoker Alcohol intake: current Substance use: current Lack of Transportation: No Lack of Food: Never True Current Housing: I Have Housing Concerned About Future Housing: No Difficulty Paying Gas/Electric Bills: No Difficulty Paying for Meds: No Currently Unemployed: YES Education: High School Diploma/GED Living arrangements: with family Occupation/Education: retired Gender identity (if verbalized by the patient): Female Sexual Orientation (if Verbalized by the Patient): Straight or Heterosexual Spiritual care concerns: No Exam 2 Narrative: GENERAL: Well-appearing, well-nourished, and in no acute distress. HEAD: Normocephalic, atraumatic. EYES: Non injected, non icteric ENT: Nares clear, no rhinorrhea or epistaxis. Gross auditory acuity intact. NECK: Supple. No meningismus. CHEST: Speaking in full sentences. No respiratory distress. HEART: Regular rate and rhythm. . ABDOMEN: Soft, nondistended. No rigidity or guarding. Not peritoneal EXTREMITIES: Normal range of motion. No bilateral lower extremity edema. SKIN: Warm, dry, no rash. NEURO: No focal deficits. Alert and oriented. Answering questions. Following commands. Normal speech without aphasia or dysarthria. PSYCH: Normal mood and affect. Course Vital Signs Vital signs: Vital Signs Temperature 97.9 F 02/10/25 16:02 Pulse Rate 90 02/10/25 16:02 Respiratory Rate 18 02/10/25 16:02 Blood Pressure 132/80 02/10/25 16:02 Pulse Oximetry 97 02/10/25 16:02 Oxygen Delivery Room Air 02/10/25 16:02 Temperature 97.9 F 02/10/25 16:02 Pulse Rate 76 02/10/25 19:20 Respiratory Rate 18 02/10/25 16:02 Blood Pressure 132/80 02/10/25 16:02 Pulse Oximetry 100 02/10/25 19:39 Oxygen Delivery Room Air 02/10/25 19:39 MDM - Chest Pain MDM Narrative Medical decision making narrative: Patient presents with shorness of breath. In the emergency department they are afebrile with vital signs within normal limits. HEART SCORE History 2 highly suspicious 1 moderately suspicious 0 slightly suspicious History score [address] depression/elevation not due to LBBB, LVH, or digoxin [address] depression but LBBB, LVH, nonspecific repolarization changes 0 normal ECG score 1 Age 2 >/= 65 1 45-64 0 <45 Age score 2 Risk factors (HTN, hypercholesterolemia, DM, obesity with BMI >30, current smoker or cessation </=3mo), positive fam hx with parent or sibling with CVD before age 65, atherosclerotic disease (prior RI, PCI/CABG, CVA/TIA, or peripheral arterial disease) 2 >/= 3 risk factors or history of atherosclerotic dz 1 - 1-2 risk factors 0 no known risk factors Risk factor score 2 Initial Troponin 2 >3 times normal limit 1 1-3 times normal limit 0 less than or equal to normal limit Troponin score 0 Total HEART Score 5. Repeat troponin normal. NTG ordered. No prior cardiac work up including no echo. Went to talk to patient about admission for further work up but the room is empty, blood pressure cuff and leads off, and the gown is on the bed. Presumably therefore, patient left after being seen. Differential Diagnosis Differential diagnosis: Likely stable angina, unstable angina pectoris, atypical chest pain, st elevation myocardial infarction, costochondritis, chest pain and biliary colic Lab Data Attestation: I reviewed the patient's lab results. 02/10/25 16:00 02/10/25 16:00 Labs: Lab Results 02/10/25 02/10/25 Range/Units 16:00 19:37 WBC 9.9 (4.5-10.0) K/mm3 RBC 4.23 (4.2-5.4) M/mm3 Hgb 12.7 (12.0-15.0) g/dL Hct 38.2 (37.0-47.0) % MCV 90.3 (80-100) fl MCH 30.0 (26-34) pg MCHC 33.2 (32-36) g/dl RDW 12.6 (11.5-14.5) % Plt Count 275 (150-375) k/mm3 MPV 9.0 (7.4-10.4) fl Immature Gran % (Auto) 0.4 (0-0.5) % Neut % (Auto) 71.8 (45.5-73.1) % Lymph % (Auto) 20.7 (18.3-44.2) % [place] % (Auto) 6.1 (2.6-8.5) % Eos % (Auto) 0.8 (0-4.4) % Baso % (Auto) 0.2 (0.2-1.2) % Lymph # (Auto) 2.04 (0.9-3.2) K/mm3 [place] # (Auto) 0.6 (0.1-0.6) K/mm3 Eos # (Auto) 0.1 (0-0.3) K/mm3 Baso # (Auto) 0.0 (0.0-0.1) K/mm3 Abs Immat Gran (auto) 0.04 H (0.00-0.031) K/mm3 Absolute Neuts (auto) 7.1 H (1.3-6.7) K/mm3 Absolute Nucleated RBC 0.000 (0.0-0.012) K/mm3 Nucleated RBC % 0.0 (0.0-0.2) % PT 13.2 (11.1-14.7) Seconds INR 1.0 APTT 25.4 (22.3-36.8) Seconds Sodium 137 (137-145) mmol/L Potassium 3.5 (3.4-5.0) mmol/L Chloride 101 (98-107) mmol/L Carbon Dioxide 29 (22-30) mmol/L Anion Gap 7 (4-12) mmol/L BUN 14 (7-17) mg/dL Creatinine 0.80 (0.7-1.0) mg/dL Estim Creat Clear Calc 60 ml/min Estimated GFR > 60 (59 - ) Glucose 129 H (65-110) mg/dL Calcium 9.8 (8.4-10.2) mg/dL Total Bilirubin 0.7 (0.2-1.3) mg/dL AST 41 H (14-36) U/L ALT 28 (6-35) U/L Alkaline Phosphatase 111 (38-126) U/L Troponin I < 0.012 < 0.012 (0.000-0.034) ng/mL Total Protein 7.7 (6.3-8.2) g/dL Albumin 4.2 (3.5-5.1) g/dL Lipase 99 (23-300) U/L Imaging Data Radiologist's impression: Impressions Chest X-Ray 02/10/25 17:13 IMPRESSION: No acute cardiopulmonary process. 8mm lower lobe nodular opacity, consider nonemergent but timely low-dose noncontrast CT of the chest for further evaluation ECG Data EKG #1: Attestation: I personally reviewed and interpreted this ECG as follows: ECG completion date: 02/10/25 ECG completion time: 15:52 Interpretation: Normal sinus rhythm at a rate of 96 beats per minute. MN interval 166. QRS 98. QT/QTC 354/448. T-wave inversion in 3 and avf, upright in contiguous inferior lead II. Questionable T-wave inversion in V3 versus flat, possibly due to lead placement. EKG #2: Attestation: I personally reviewed and interpreted this ECG as follows: ECG completion date: 02/10/25 ECG completion time: 19:43 Interpretation: Normal sinus rhythm at a rate of 77 beats per minute. MN interval 209. QRS 105. QT/QTC 386/438. Good R-wave progression across the precordial leads. Left axis deviation (QRS is positive with dominant R wave in Lead I; QRS is negative with dominant S wave in leads II, III, and aVF). T-wave inversions in III and avF. Discharge Plan Discharge Clinical Impression: Pulmonary nodule, Chest pain Patient Disposition: Elopement After Seen by Prov Patient Language: Bangladeshi Prescriptions: No Action atorvastatin 40 mg tablet 40 mg PO DAILY chlorthalidone 25 mg tablet 25 mg PO DAILY citalopram 20 mg tablet 20 mg PO DAILY potassium chloride [Klor-Con 10] 10 mEq tablet extended release 10 meq PO DAILY telmisartan 40 mg tablet 40 mg PO DAILY trazodone 50 mg tablet 50 mg PO QHS PRN Galzin 50 mg (zinc) capsule 50 mg PO DAILY chlorthalidone 25 mg tablet 25 mg PO DAILY Qty: 30 0RF Follow-up/Referrals: UNKNOWN,DOCTOR [Non-Staff] -
--- OUTSIDE RECORDS SUMMARY | 2025-02-10 18:46 | XMS_ITS | Clinical Summary ---
Author Organization [facility] [address] [facility] Address [address] [place] [address] Care Team Providers Care Airframe And Power Plant Mechanic Name Role Phone 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 NP Primary Care Provider [phone] Allergies Active Allergy Reactions Criticality Noted Date [...] 07/18 Assessment & Plan (08/03/2024 5:03 PM HADOOP DEVELOPER): Chronic, patient not interested in quitting at this time. Last chest CT completed in 09/2019, no pulmonary nodule noted at that time. Patient is not interested in repeat chest CT at this time. Medicare annual wellness visit, subsequent 06/14 Assessment & Plan (08/03/2024 5:07 PM HADOOP DEVELOPER): CBC, CMP, lipid panel ordered. Mammogram last completed: 06/2024 DEXA ordered. Colonoscopy last completed: 05/2021 repeat in 05/2031 Vaccinations: COVID, Shingrix, Prevnar, Pneumovax, and Flu vaccines UTD. Repeat wellness exam in one year. Assessment & Plan (06/16/2023 2:29 PM HADOOP DEVELOPER): Healthcare maintenance updated Assessment & Plan (06/14/2022 1:30 PM HADOOP DEVELOPER): Healthcare maintenance updated Generalized anxiety disorder 06/14/2022 Assessment & Plan (08/03/2024 5:05 PM HADOOP DEVELOPER): Chronic, controlled with Celexa 20 mg daily. Follow up yearly. Assessment & Plan (12/14/2023 6:37 AM CDT): This appears to be well controlled, continue current meds, follow-up routine Assessment & Plan (06/16/2023 2:28 PM HADOOP DEVELOPER): This appears to be well controlled, continue current meds, follow-up routine Assessment & Plan (12/30/2022 10:37 AM CDT): This is well controlled with no HI SI will continue to follow Assessment & Plan (07/01/2022 11:48 AM HADOOP DEVELOPER): Well controlled Assessment & Plan (06/14/2022 1:29 PM HADOOP DEVELOPER): This is well controlled with no SI HI, continue current meds follow-up routine Primary hypertension 06/14/2022 Assessment & Plan (08/01/2024 12:41 PM HADOOP DEVELOPER): Chronic, controlled. Patient to continue Micardis 40 [...] routine Assessment & Plan (06/16/2023 2:28 PM HADOOP DEVELOPER): This is not controlled and after reviewing [...] routine Assessment & Plan (07/01/2022 11:49 AM HADOOP DEVELOPER): Images from the original note were not included. This is a stable chronic condition. Monitor blood pressure, call if out of parameters as we discussed. Low sodium and caffeine diet. baby asa as discussed if applicable. Diet, exercise and weight reduction. Labs as ordered. F/U routine Assessment & Plan (06/14/2022 1:30 PM HADOOP DEVELOPER): Patient has no history of heart failure [...] 06/14/2022 Assessment & Plan (08/03/2024 5:05 PM HADOOP DEVELOPER): Chronic, controlled. Patient to continue on atorvastatin [...] routine. Assessment & Plan (07/01/2022 11:49 AM HADOOP DEVELOPER): Patient is to continue present medications, work on diet and exercise as discussed, we did discuss the medications and potential side effects and signs and symptoms that would warrant calling office. Follow up routine. Assessment & Plan (06/14/2022 1:29 PM HADOOP DEVELOPER): Patient is to continue present medications, work on diet and exercise as discussed, we did discuss the medications and potential side effects and signs and symptoms that would warrant calling office. Follow up routine. Vitamin D deficiency 06/14/2022 Assessment & Plan (08/03/2024 5:07 PM HADOOP DEVELOPER): Chronic, controlled with daily vitamin D supplement. Follow up yearly. Assessment & Plan (12/14/2023 6:37 AM CDT): Continue vitamin-D Assessment & Plan (06/16/2023 2:29 PM HADOOP DEVELOPER): Continue vitamin-D Assessment & Plan (12/30/2022 10:38 AM CDT): Continue vitamin-D Assessment & Plan (07/01/2022 11:42 AM HADOOP DEVELOPER): Increase to 5000 Pulmonary nodule 07/31/2019 Assessment & Plan (06/16/2023 2:29 PM HADOOP DEVELOPER): CT lung screening ordered Assessment & Plan (09/29/2019 4:36 PM CDT): CT scan of the chest shows no concerning pulmonary nodules or masses. Assessment & Plan (07/31/2019 4:21 PM HADOOP DEVELOPER): Will follow-up with a CT scan of [...] chest. Assessment & Plan (07/31/2019 4:22 PM HADOOP DEVELOPER): Will obtain full set of PFTs. Patient quit smoking few years ago. Gastroesophageal reflux disease 07/30/2019 Assessment & Plan (08/03/2024 4:59 PM HADOOP DEVELOPER): Chronic, controlled with diet. Assessment & Plan [...] understanding Assessment & Plan (06/16/2023 2:28 PM HADOOP DEVELOPER): Avoid spicy, fried, greasy foods Keep hydrated [...] understanding Assessment & Plan (07/01/2022 11:48 AM HADOOP DEVELOPER): Images from the original note were not [...] 08/03/2024 Assessment & Plan (07/01/2022 11:50 AM HADOOP DEVELOPER): Sending to derm also with lines in nails History of severe acute resp iratory syndrome coronavirus 2 (SARS-CoV-2) disease 02/04/202208/03 Hypokalemia 05/21/2020 08/03/2024 Mixed anxiety and depressive disorder 05/30/2018 08/01/2024 Encounter for orthopedic follow-up care 03/12/2015 08/03/2024 Fracture of foot 09/21/2011 08/01/2024 Closed fracture of tibial plateau 09/21/2011 06/14/2022 Encounters Date Type Department Care Team Description 11/26/2024 Orders Only [facility] [address] [place] [address] [address] [place] [address] 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, ACADEMIC VICE PRESIDENT Generalized anxiety disorder from Last 3 Months [...] on file Legal Sex Female 2:00 AM HADOOP DEVELOPER Gender Identity Not on file Sexual Orientation Not on file Obstetrics History Para Term AB IAB SAB Ectopic Multiple Livin g Live Births 3 3 3 Date Outcome GA Total Labor Labor/2nd/3rd Weight Sex Type Anes PTL Lis A1 A5 Name Clin Term Term Term Last Filed Vital Signs Vital Sign Reading Time Taken Comments Blood Pressure 122/82 08/01/2024 12:17 PM HADOOP DEVELOPER Pulse 70 08/01/2024 12:17 PM HADOOP DEVELOPER Temperature 36.8 C (98.2 F) 08/01/2024 12:17 PM HADOOP DEVELOPER Respiratory Rate 20 08/01/2024 12:1 7 PM HADOOP DEVELOPER Oxygen Saturation 96% 08/01/2024 12: 17 PM HADOOP DEVELOPER Inhaled Oxygen Concentration - - Weight 85.7 kg (188 lb 14.4 oz) 025 12:17 PM HADOOP DEVELOPER Height 168.9 cm (5' 6.5) 08/01/2024 12 :17 PM HADOOP DEVELOPER Body Mass Index 30.04 08/01/2024 12:17 PM HADOOP DEVELOPER Plan of Treatment Health Maintenance Due Date [...] Read Routine (OP Routine) 06/25/2024 3:48 PM HADOOP DEVELOPER Screening mammogram, encounter for COLONOSCOPY Routine 05/27/2021 HEPATITIS PANEL, ACUTE Routine 07/02/2019 5:44 AM HADOOP DEVELOPER from Last 3 Months or Most Recently Relevant to Health Maintenance Results * Screening Mammogram Bilateral W Ebenezer (06/25/2024 3:48 PM HADOOP DEVELOPER) Anatomical Region Laterality Modality Breast Bilateral Mammography Impressions 06/25/2024 4:03 PM HADOOP DEVELOPER BI-RADS ATLAS category (overall): 1 - Negative There is no mammographic evidence of malignancy. A 1 year screening mammogram is recommended. The patient has been or will be contacted. We recommend annual screening mammography for women at average risk of breast cancer beginning at age 40, based on guidelines of the [employer] (ACR Practice Parameter for the Performance of Screening and Diagnostic Mammography) and [employer] [place]. For women with and elevated risk of breast cancer, please refer to the ACR Practice Parameter for specific screening recommendations. The patient will be entered into a reminder system with a target due date of 1 year for her next screening exam. Narrative 06/25/2024 4:03 PM HADOOP DEVELOPER Screening Mammogram Bilateral W Ebenezer: 06/25/24 The [...] * Hepatitis panel, acute (07/02/2019 5:44 AM HADOOP DEVELOPER) HepBsAg NONREACT NONREACTIVE [facility] Comment: Siemens CentaurXP using AMY (chemiluminescent immunoassay) technology. NONREACTIVE: IgM antibodies to Hepatitis B Surface antigen not detected. REACTIVE: IgM antibodies to Hepatitis B Surface antigen detected. Reactive results will be confirmed by neutralization testing. HBsAb qn <3.10 mIU/mL [facility] Comment: Siemens CentaurXP using AMY (chemiluminescent immunoassay) technology. 9.99 IU/L or less.....NONREACTIVE: IgM antibodies to Hepatitis B Surface antibody are not detected. 10.00 IU/L or greater..REACTIVE: IgM antibodies to Hepatitis B Surface antibody are detected. Hep B core IgM NONREACT NONREACTIVE [facility] Comment: Siemens CentaurXP using AMY (chemiluminescent immunoassay) technology. NONREACTIVE: IgM antibodies to Hepatitis B Core antigen not detected. EQUIVOCAL: IgM antibodies to Hepatitis B Core antigen may or may not be present. Obtain a new specimen and retest. REACTIVE: IgM antibodies to Hepatitis B Core antigen detected. Hep A IgM NONREACT NONREACTIVE [facility] Comment: Siemens CentaurXP using AMY (chemiluminescent immunoassay) technology. NONREACTIVE: IgM antibodies to Hepatitis A not detected. This does not exclude possibility of exposure to Hepatitis A or early acute infection. EQUIVOCAL:IgM antibodies to Hepatitis A may or may not be present. Suggest recollection and retest. REACTIVE: Antibodies to Hepatitis A detected. Hep C Ab NONREACT NONREACTIVE [facility] Comment: Siemens CentaurXP using AMY (chemiluminescent immunoassay) [...] by real-time PCR method. 07/02/2019 5:44 AM HADOOP DEVELOPER 07/02/2019 5:55 AM HADOOP DEVELOPER Narrative Resulting Agency Comment IN us Zeina Hart MD LAB MICROBIOLOGY - GENERAL OR DERABLES Final Result [id number] [place] [address] from Last 3 Months or Most Recently Relevant to Health Maintenance [place] [address] [facility] REF [facility] AETNA MEDICARE [facility] [place] [address] AETNA MEDICARE Care Teams Airframe And Power Plant Mechanic Relationship Specialty Start Date End Date 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 NP [address] [place] [id number] PCP - General Family Medicine 04/09/24
--- OUTSIDE RECORDS SUMMARY | 2025-02-10 18:46 | XMS_ITS | Clinical Summary ---
Author Organization [facility] Address [address] [place] [address] Care Team Providers Care Construction Sales Manager Name Role Phone Zhanna Wheeler MD Primary Care Provider [phone] Immunizations Immunization Administration Dates Next Due MODERNA [...] SCREENING JOHNNY DIGI Routine 07/28/2017 12:49 PM ROD HANGER Screening breast examination from Last 3 Months or Most Recently Relevant to Health Maintenance Results * MG SCREENING JOHNNY DIGI (07/28/2017 12:49 PM ROD HANGER) Anatomical Region Laterality Modality Breast Bilateral Mammography 07/28/2017 1:12 PM ROD HANGER Impressions 07/28/2017 1:14 PM ROD HANGER ===== IMPRESSION: ===== No mammographic evidence for neoplasm. Assessment: ACR BI-RADS Category 2 - Benign. Recommendation: 1: Routine screening mammogram bilateral in 1 year Comments: A negative or benign mammography report should not discourage follow-up or biopsy of a clinically significant finding and/or abnormality. Regions of dense breast tissue may obscure small neoplasms. Narrative 07/28/2017 1:14 PM ROD HANGER Examination: Digital bilateral screening mammogram Exam Date/Time: [...] to Health Maintenance Insurance [employer] Care Teams Construction Sales Manager Relationship Specialty Start Date End Date Zhanna Wheeler MD PCP - General 04/20/16
--- OUTSIDE RECORDS SUMMARY | 2025-02-10 18:46 | XMS_ITS | Referral Summary ---
Author Organization [facility] [address] [facility] Address [address] [place] [address] Care Team Providers Care Supervisor Pile Driving Name Role Phone 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 NP Primary Care Provider [phone] Encounters Date Type Department Care Team Description 11/26/2024 Orders Only [facility] Primary Care [address] [place] [address] [address] [place] [address] 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, HUMBERTO Generalized anxiety [...] 07/18 Assessment & Plan (08/03/2024 5:03 PM ELECTRONIC INSTALLER): Chronic, patient not interested in quitting at this time. Last chest CT completed in 09/2019, no pulmonary nodule noted at that time. Patient is not interested in repeat chest CT at this time. Medicare annual wellness visit, subsequent 06/14 Assessment & Plan (08/03/2024 5:07 PM ELECTRONIC INSTALLER): CBC, CMP, lipid panel ordered. Mammogram last completed: 06/2024 DEXA ordered. Colonoscopy last completed: 05/2021 repeat in 05/2031 Vaccinations: COVID, Shingrix, Prevnar, Pneumovax, and Flu vaccines UTD. Repeat wellness exam in one year. Assessment & Plan (06/16/2023 2:29 PM ELECTRONIC INSTALLER): Healthcare maintenance updated Assessment & Plan (06/14/2022 1:30 PM ELECTRONIC INSTALLER): Healthcare maintenance updated Generalized anxiety disorder 06/14/2022 Assessment & Plan (08/03/2024 5:05 PM ELECTRONIC INSTALLER): Chronic, controlled with Celexa 20 mg daily. Follow up yearly. Assessment & Plan (12/14/2023 6:37 AM CDT): This appears to be well controlled, continue current meds, follow-up routine Assessment & Plan (06/16/2023 2:28 PM ELECTRONIC INSTALLER): This appears to be well controlled, continue current meds, follow-up routine Assessment & Plan (12/30/2022 10:37 AM CDT): This is well controlled with no HI SI will continue to follow Assessment & Plan (07/01/2022 11:48 AM ELECTRONIC INSTALLER): Well controlled Assessment & Plan (06/14/2022 1:29 PM ELECTRONIC INSTALLER): This is well controlled with no SI HI, continue current meds follow-up routine Primary hypertension 06/14/2022 Assessment & Plan (08/01/2024 12:41 PM ELECTRONIC INSTALLER): Chronic, controlled. Patient to continue Micardis 40 [...] routine Assessment & Plan (06/16/2023 2:28 PM ELECTRONIC INSTALLER): This is not controlled and after reviewing [...] routine Assessment & Plan (07/01/2022 11:49 AM ELECTRONIC INSTALLER): Images from the original note were not included. This is a stable chronic condition. Monitor blood pressure, call if out of parameters as we discussed. Low sodium and caffeine diet. baby asa as discussed if applicable. Diet, exercise and weight reduction. Labs as ordered. F/U routine Assessment & Plan (06/14/2022 1:30 PM ELECTRONIC INSTALLER): Patient has no history of heart failure [...] 06/14/2022 Assessment & Plan (08/03/2024 5:05 PM ELECTRONIC INSTALLER): Chronic, controlled. Patient to continue on atorvastatin [...] routine. Assessment & Plan (07/01/2022 11:49 AM ELECTRONIC INSTALLER): Patient is to continue present medications, work on diet and exercise as discussed, we did discuss the medications and potential side effects and signs and symptoms that would warrant calling office. Follow up routine. Assessment & Plan (06/14/2022 1:29 PM ELECTRONIC INSTALLER): Patient is to continue present medications, work on diet and exercise as discussed, we did discuss the medications and potential side effects and signs and symptoms that would warrant calling office. Follow up routine. Vitamin D deficiency 06/14/2022 Assessment & Plan (08/03/2024 5:07 PM ELECTRONIC INSTALLER): Chronic, controlled with daily vitamin D supplement. Follow up yearly. Assessment & Plan (12/14/2023 6:37 AM CDT): Continue vitamin-D Assessment & Plan (06/16/2023 2:29 PM ELECTRONIC INSTALLER): Continue vitamin-D Assessment & Plan (12/30/2022 10:38 AM CDT): Continue vitamin-D Assessment & Plan (07/01/2022 11:42 AM ELECTRONIC INSTALLER): Increase to 5000 Pulmonary nodule 07/31/2019 Assessment & Plan (06/16/2023 2:29 PM ELECTRONIC INSTALLER): CT lung screening ordered Assessment & Plan (09/29/2019 4:36 PM CDT): CT scan of the chest shows no concerning pulmonary nodules or masses. Assessment & Plan (07/31/2019 4:21 PM ELECTRONIC INSTALLER): Will follow-up with a CT scan of [...] chest. Assessment & Plan (07/31/2019 4:22 PM ELECTRONIC INSTALLER): Will obtain full set of PFTs. Patient quit smoking few years ago. Gastroesophageal reflux disease 07/30/2019 Assessment & Plan (08/03/2024 4:59 PM ELECTRONIC INSTALLER): Chronic, controlled with diet. Assessment & Plan [...] understanding Assessment & Plan (06/16/2023 2:28 PM ELECTRONIC INSTALLER): Avoid spicy, fried, greasy foods Keep hydrated [...] understanding Assessment & Plan (07/01/2022 11:48 AM ELECTRONIC INSTALLER): Images from the original note were not [...] 08/03/2024 Assessment & Plan (07/01/2022 11:50 AM ELECTRONIC INSTALLER): Sending to derm also with lines in [...] on file Legal Sex Female 2:00 AM ELECTRONIC INSTALLER Gender Identity Not on file Sexual Orientation Not on file Last Filed Vital Signs Vital Sign Reading Time Taken Comments Blood Pressure 122/82 08/01/2024 12:17 PM ELECTRONIC INSTALLER Pulse 70 08/01/2024 12:17 PM ELECTRONIC INSTALLER Temperature 36.8 C (98.2 F) 08/01/2024 12:17 PM ELECTRONIC INSTALLER Respiratory Rate 20 08/01/2024 12:1 7 PM ELECTRONIC INSTALLER Oxygen Saturation 96% 08/01/2024 12: 17 PM ELECTRONIC INSTALLER Inhaled Oxygen Concentration - - Weight 85.7 kg (188 lb 14.4 oz) 025 12:17 PM ELECTRONIC INSTALLER Height 168.9 cm (5' 6.5) 08/01/2024 12 :17 PM ELECTRONIC INSTALLER Body Mass Index 30.04 08/01/2024 12:17 PM ELECTRONIC INSTALLER Plan of Treatment Not on file Procedures Procedure Name Priority Date/Time Associated Diagnosis Comments SCREENING MAMMOGRAM BILATERAL W EBENEZER Schedule Routine, Read Routine (OP Routine) 06/25/2024 3:48 PM ELECTRONIC INSTALLER Screening mammogram, encounter for COLONOSCOPY Routine 05/27/2021 HEPATITIS PANEL, ACUTE Routine 07/02/2019 5:44 AM ELECTRONIC INSTALLER from Last 3 Months or Most Recently Relevant to Health Maintenance Results * Screening Mammogram Bilateral W Ebenezer (06/25/2024 3:48 PM ELECTRONIC INSTALLER) Anatomical Region Laterality Modality Breast Bilateral Mammography Impressions 06/25/2024 4:03 PM ELECTRONIC INSTALLER BI-RADS ATLAS category (overall): 1 - Negative There is no mammographic evidence of malignancy. A 1 year screening mammogram is recommended. The patient has been or will be contacted. We recommend annual screening mammography for women at average risk of breast cancer beginning at age 40, based on guidelines of the [place] [employer] (ACR Practice Parameter for the Performance of Screening and Diagnostic Mammography) and [place]. For women with and elevated risk of breast cancer, please refer to the ACR Practice Parameter for specific screening recommendations. The patient will be entered into a reminder system with a target due date of 1 year for her next screening exam. Narrative 06/25/2024 4:03 PM ELECTRONIC INSTALLER Screening Mammogram Bilateral W Ebenezer: 06/25/24 The [...] * Hepatitis panel, acute (07/02/2019 5:44 AM ELECTRONIC INSTALLER) HepBsAg NONREACT NONREACTIVE [facility] Comment: Siemens CentaurXP using AMY (chemiluminescent immunoassay) technology. NONREACTIVE: IgM antibodies to Hepatitis B Surface antigen not detected. REACTIVE: IgM antibodies to Hepatitis B Surface antigen detected. Reactive results will be confirmed by neutralization testing. HBsAb qn <3.10 mIU/mL [facility] Comment: Siemens CentaurXP using AMY (chemiluminescent immunoassay) [...] detected. Hep A IgM NONREACT NONREACTIVE [facility] Comment: Siemens CentaurXP using AMY (chemiluminescent immunoassay) technology. NONREACTIVE: IgM antibodies to Hepatitis A not detected. This does not exclude possibility of exposure to Hepatitis A or early acute infection. EQUIVOCAL:IgM antibodies to Hepatitis A may or may not be present. Suggest recollection and retest. REACTIVE: Antibodies to Hepatitis A detected. Hep C Ab NONREACT NONREACTIVE [facility] Comment: Siemens CentaurXP using AMY (chemiluminescent immunoassay) [...] by real-time PCR method. 07/02/2019 5:44 AM ELECTRONIC INSTALLER 07/02/2019 5:55 AM ELECTRONIC INSTALLER Narrative Resulting Agency Comment IN Zeina Hart MD LAB MICROBIOLOGY - GENERAL OR DERABLES Final Result [address] [address], [facility] [phone] from Last 3 Months or Most Recently Relevant to [place] [address] [facility] ADV REF [facility] MEDICARE AETNA MEDICARE Care Teams Supervisor Pile Driving Relationship Specialty Start Date End Date 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 NP [address] [place] [address] PCP - General Family Medicine 04/09/24
--- NOTE | 2025-02-10 19:16 | ECG_ITS ---
Test Date: 2025-02-10 19:43:04 Measurements Intervals Amasa Rate: 77 P: 41 OR: 209 QRS: -64 QRSD: 105 T: -12 QT: 386 QTc: 438 Interpretive Statements SINUS RHYTHM LEFT AXIS DEVIATION [QRS AXIS < -30] LOW QRS VOLTAGE IN PRECORDIAL LEADS [QRS DEFLECTION < 1.0 mV IN CHEST LEADS] Compared to ECG 02/10/2025 15:52:25 No significant changes Electronically Signed On 02-11-2025 12:36:24 CDT by Evens Siu M.D.
[2025-02-10 19:20] VITALS: PULSE 76
--- NOTE | 2025-02-10 19:26 | PC.NURSE ---
Assumed care of patient at 1920.
[2025-02-10 19:39] VITALS: O2SAT 100
[2025-02-10 20:05] LABS: Troponin I < 0.012 ng/mL (0.000-0.034)
--- NOTE | 2025-02-10 20:35 | PC.NURSE ---
Patient, , and belongings not seen in room upon this RN entering.
== END 2025-02-10 21:01 | disposition left against medical advice (07) ==
PROVIDERS: Emergency Medicine; Emergency Provider Student in an Organized Health Care Education/Training Program; PCP Nurse Practitioner
DX: R07.9 Chest pain, unspecified (principal); R91.1 Solitary pulmonary nodule; I10 Essential (primary) hypertension; E78.5 Hyperlipidemia, unspecified; Z90.710 Acquired absence of both cervix and uterus; Z90.49 Acquired absence of other specified parts of digestive tract; F17.290 Nicotine dependence, other tobacco product, uncomplicated; Z79.899 Other long term (current) drug therapy
CPT/HCPCS: 36415; 71046; 80053; 83690; 84484; 85025; 85610; 85730; 93005; 99284

== ENCOUNTER 2025-03-04 10:09 | Outpatient (CLI) | payer MEDICARE, SELFPAY ==
--- NOTE | ~2025-03-04 | DEXA_ITS ---
Bone Density Report Name: NILSA CHAVARRIA Age: 74 Sex: Female Ethnicity: White Date of : 1950 Indication: postmenopausal; screening for osteoporosis; hysterectomy; Referring Provider: MARTINEZ, KAILEE Mahajan Study: Bone densitometry was performed. Exam Date: March 04, 2025 Accession number: [id number] Bone Density: Region BMD T-score Z-score Classification AP Spine(L1-L4) 0.993 -0.5 1.8 Normal Femoral Neck (Left) 0.871 0.2 2.2 Normal Total Hip (Left) 0.912 -0.2 1.5 Normal Femoral Neck (Right) 0.886 0.3 2.3 Normal Total Hip (Right) 0.908 -0.3 1.4 Normal Total Hip Mean 0.910 -0.3 1.5 Normal World Health Organization criteria for BMD impression classify patients as: Normal (T-score at or above -1.0), Osteopenia (T-score between -1.0 and -2.5), or Osteoporosis (T-score at or below -2.5). 10-year Fracture Risk: FRAX not reported because: All T-scores for Spine Total, Hip Total, Femoral Neck at or above -1.0 Previous Exams: Region Exam Age BMD T-score BMD Change BMD Change Date g/cm2 vs Baseline vs Previous AP Spine (L1-L4) 03/04/2025 74 0.993 -0.5 -0.016 (-1.6%) -0.016 (-1.6%) 07/09/2021 71 1.009 -0.3 Total Hip(Left) 03/04/2025 74 0.912 -0.2 -0.034 (-3.6%) -0.034 (-3.6%) 07/09/2021 71 0.945 0.0 Total Hip(Right) 03/04/2025 74 0.908 -0.3 0.039 (4.5%)# 0.039 (4.5%)# 07/09/2021 71 0.869 -0.6 *Denotes significance at 95% confidence level, LSC for AP Spine = 0.022 g/cm2, LSC for Total Hip = 0.027 g/cm2 # Denotes dissimilar scan types or analysis methods Clinical Information Provided by Patient: Has used the following medications: Vitamin D, Calcium Has the following medical conditions: Hysterectomy Patient maximum height was 66.0 Menopause Age: 41 No regular weight bearing exercise Drinks caffeinated beverages Onset of menses at age 14 Number of children 3 Impression: The patient has normal bone mass. No significant bone loss was observed. Discussion: BONE DENSITY IS ABOVE THE MINIMUM DESIRABLE LEVEL AT ALL SKELETAL SITES TESTED. This patient?s bone mineral density is above the minimum desirable level (T-score -1.0 or better) at all sites measured. The patient should follow a healthful lifestyle (good nutrition with adequate calcium and vitamin D, and appropriate weight-bearing exercise). Follow-Up: Consider repeating this study in 5 years or sooner if there is some new clinical indication. Reported by: ALESSANDRO on 03/04/2025 10:51:00 AM. Reviewed, dictated and finalized at location A.
--- OUTSIDE RECORDS SUMMARY | 2025-03-04 11:07 | XMS_ITS | Clinical Summary ---
Author Organization [facility] [address] [facility] Address [address] [place] [address] Care Team Providers Care House Servant Name Role Phone 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 NP Primary Care Provider [phone] Allergies Active Allergy Reactions Criticality Noted Date Comments Adhesive Blisters High 07/31/2019 Latex Swelling Medium 12/30/2022 Medications aspirin 81 mg enteric coated tablet 1 tablet (81 mg total) 12/09/19 15 Active cholecalciferol (VITAMIN D-3) 1,000 unit capsule Take 1 capsule every day by oral route. 05/26/20 16 Active glucosamine sulfate 500 mg tablet Take by mouth Active ZINC ORAL Take by mouth Active ferrous sulfate (IRON ORAL) Take by mouth Active chlorthalidone (HYGROTON) 25 mg tabletIndications: Primary hypertension Take 1 tablet (25 mg total) by mouth daily 30 tablet 11 11/15/19 25 026 Active citalopram (CeleXA) 20 mg tabletIndications: Generalized anxiety disorder Take 1 tablet (20 mg total) by mouth daily 100 tablet 1 11/15/19 25 Active traZODone (DESYREL) 50 mg tabletIndications: Generalized anxiety disorder Take 1 tablet (50 mg total) by mouth nightly 90 tablet 1 11/27/19 25 Active atorvastatin (LIPITOR) 40 mg tabletIndications: Mixed hyperlipidemia TAKE 1 TABLET DAILY 90 tablet 1 12/06/19 25 Active potassium chloride ER 10 mEq CR tabletIndications: Primary hypertension TAKE 1 TABLET DAILY 90 tablet 1 02/13/20 25 Active telmisartan (MICARDIS) 40 mg tabletIndications: Primary hypertension TAKE 1 TABLET DAILY 90 tablet 1 02/22/20 25 Active potassium chloride ER (KLOR-CON) 10 mEq CR tabletIndications: Primary hypertension Take 1 tablet/caps ule (10 mEq total) by mouth daily 90 tablet/caps ule 11/27/19 25 025 Discontinued telmisartan (MICARDIS) 40 mg tabletIndications: Primary hypertension TAKE 1 TABLET DAILY 100 tablet 12/15/19 25 025 Discontinued Active Problems Problem Noted Date Diagnosed Date Vaping nicotine dependence, tobacco product 07/18 Assessment & Plan (08/03/2024 5:03 PM CARD STRIPPER): Chronic, patient not interested in quitting at this time. Last chest CT completed in 09/2019, no pulmonary nodule noted at that time. Patient is not interested in repeat chest CT at this time. Medicare annual wellness visit, subsequent 06/14 Assessment & Plan (08/03/2024 5:07 PM CARD STRIPPER): CBC, CMP, lipid panel ordered. Mammogram last completed: 06/2024 DEXA ordered. Colonoscopy last completed: 05/2021 repeat in 05/2031 Vaccinations: COVID, Shingrix, Prevnar, Pneumovax, and Flu vaccines UTD. Repeat wellness exam in one year. Assessment & Plan (06/16/2023 2:29 PM CARD STRIPPER): Healthcare maintenance updated Assessment & Plan (06/14/2022 1:30 PM CARD STRIPPER): Healthcare maintenance updated Generalized anxiety disorder 06/14/2022 Assessment & Plan (08/03/2024 5:05 PM CARD STRIPPER): Chronic, controlled with Celexa 20 mg daily. Follow up yearly. Assessment & Plan (12/14/2023 6:37 AM CDT): This appears to be well controlled, continue current meds, follow-up routine Assessment & Plan (06/16/2023 2:28 PM CARD STRIPPER): This appears to be well controlled, continue current meds, follow-up routine Assessment & Plan (12/30/2022 10:37 AM CDT): This is well controlled with no HI SI will continue to follow Assessment & Plan (07/01/2022 11:48 AM CARD STRIPPER): Well controlled Assessment & Plan (06/14/2022 1:29 PM CARD STRIPPER): This is well controlled with no SI HI, continue current meds follow-up routine Primary hypertension 06/14/2022 Assessment & Plan (08/01/2024 12:41 PM CARD STRIPPER): Chronic, controlled. Patient to continue Micardis 40 [...] routine Assessment & Plan (06/16/2023 2:28 PM CARD STRIPPER): This is not controlled and after reviewing [...] routine Assessment & Plan (07/01/2022 11:49 AM CARD STRIPPER): Images from the original note were not included. This is a stable chronic condition. Monitor blood pressure, call if out of parameters as we discussed. Low sodium and caffeine diet. baby asa as discussed if applicable. Diet, exercise and weight reduction. Labs as ordered. F/U routine Assessment & Plan (06/14/2022 1:30 PM CARD STRIPPER): Patient has no history of heart failure [...] 06/14/2022 Assessment & Plan (08/03/2024 5:05 PM CARD STRIPPER): Chronic, controlled. Patient to continue on atorvastatin [...] routine. Assessment & Plan (07/01/2022 11:49 AM CARD STRIPPER): Patient is to continue present medications, work on diet and exercise as discussed, we did discuss the medications and potential side effects and signs and symptoms that would warrant calling office. Follow up routine. Assessment & Plan (06/14/2022 1:29 PM CARD STRIPPER): Patient is to continue present medications, work on diet and exercise as discussed, we did discuss the medications and potential side effects and signs and symptoms that would warrant calling office. Follow up routine. Vitamin D deficiency 06/14/2022 Assessment & Plan (08/03/2024 5:07 PM CARD STRIPPER): Chronic, controlled with daily vitamin D supplement. Follow up yearly. Assessment & Plan (12/14/2023 6:37 AM CDT): Continue vitamin-D Assessment & Plan (06/16/2023 2:29 PM CARD STRIPPER): Continue vitamin-D Assessment & Plan (12/30/2022 10:38 AM CDT): Continue vitamin-D Assessment & Plan (07/01/2022 11:42 AM CARD STRIPPER): Increase to 5000 Pulmonary nodule 07/31/2019 Assessment & Plan (06/16/2023 2:29 PM CARD STRIPPER): CT lung screening ordered Assessment & Plan (09/29/2019 4:36 PM CDT): CT scan of the chest shows no concerning pulmonary nodules or masses. Assessment & Plan (07/31/2019 4:21 PM CARD STRIPPER): Will follow-up with a CT scan of [...] chest. Assessment & Plan (07/31/2019 4:22 PM CARD STRIPPER): Will obtain full set of PFTs. Patient quit smoking few years ago. Gastroesophageal reflux disease 07/30/2019 Assessment & Plan (08/03/2024 4:59 PM CARD STRIPPER): Chronic, controlled with diet. Assessment & Plan [...] understanding Assessment & Plan (06/16/2023 2:28 PM CARD STRIPPER): Avoid spicy, fried, greasy foods Keep hydrated [...] understanding Assessment & Plan (07/01/2022 11:48 AM CARD STRIPPER): Images from the original note were not [...] 08/03/2024 Assessment & Plan (07/01/2022 11:50 AM CARD STRIPPER): Sending to derm also with lines in [...] on file Legal Sex Female 2:00 AM CARD STRIPPER Gender Identity Not on file Sexual Orientation Not on file Obstetrics History Para Term AB IAB SAB Ectopic Multiple Livin g Live Births 3 3 3 Date Outcome GA Total Labor Labor/2nd/3rd Weight Sex Type Anes PTL Lis A1 A5 Name Clin Term Term Term Last Filed Vital Signs Vital Sign Reading Time Taken Comments Blood Pressure 122/82 08/01/2024 12:17 PM CARD STRIPPER Pulse 70 08/01/2024 12:17 PM CARD STRIPPER Temperature 36.8 C (98.2 F) 08/01/2024 12:17 PM CARD STRIPPER Respiratory Rate 20 08/01/2024 12:1 7 PM CARD STRIPPER Oxygen Saturation 96% 08/01/2024 12: 17 PM CARD STRIPPER Inhaled Oxygen Concentration - - Weight 85.7 kg (188 lb 14.4 oz) 025 12:17 PM CARD STRIPPER Height 168.9 cm (5' 6.5) 08/01/2024 12 :17 PM CARD STRIPPER Body Mass Index 30.04 08/01/2024 12:17 PM CARD STRIPPER Plan of Treatment Health Maintenance Due Date [...] Read Routine (OP Routine) 06/25/2024 3:48 PM CARD STRIPPER Screening mammogram, encounter for COLONOSCOPY Routine 05/27/2021 HEPATITIS PANEL, ACUTE Routine 07/02/2019 5:44 AM CARD STRIPPER from Last 3 Months or Most Recently Relevant to Health Maintenance Results * Screening Mammogram Bilateral W Ebenezer (06/25/2024 3:48 PM CARD STRIPPER) Anatomical Region Laterality Modality Breast Bilateral Mammography Impressions 06/25/2024 4:03 PM CARD STRIPPER BI-RADS ATLAS category (overall): 1 - Negative There is no mammographic evidence of malignancy. A 1 year screening mammogram is recommended. The patient has been or will be contacted. We recommend annual screening mammography for women at average risk of breast cancer beginning at age 40, based on guidelines of the [place] [employer] (ACR Practice Parameter for the Performance of Screening and Diagnostic Mammography) and [place] [employer]. For women with and elevated risk of breast cancer, please refer to the ACR Practice Parameter for specific screening recommendations. The patient will be entered into a reminder system with a target due date of 1 year for her next screening exam. Narrative 06/25/2024 4:03 PM CARD STRIPPER Screening Mammogram Bilateral W Ebenezer: 06/25/24 The [...] Region Laterality Modality Other us Historical Provider ENDOSCOPY PROCEDURES Sneha l Result * Hepatitis panel, acute (07/02/2019 5:44 AM CARD STRIPPER) HepBsAg NONREACT NONREACTIVE [facility] Comment: Siemens CentaurXP using AMY (chemiluminescent immunoassay) technology. NONREACTIVE: IgM antibodies to Hepatitis B Surface antigen not detected. REACTIVE: IgM antibodies to Hepatitis B Surface antigen detected. Reactive results will be confirmed by neutralization testing. HBsAb qn <3.10 mIU/mL [facility] Comment: Siemens CentaurXP using AMY (chemiluminescent immunoassay) technology. 9.99 IU/L or less.....NONREACTIVE: IgM antibodies to Hepatitis B Surface antibody are not detected. 10.00 IU/L or greater..REACTIVE: IgM antibodies to Hepatitis B Surface antibody are detected. Hep B core IgM NONREACT NONREACTIVE [facility] Comment: Siemens CentaurXP using AMY (chemiluminescent immunoassay) technology. NONREACTIVE: IgM antibodies to Hepatitis B Core antigen not detected. EQUIVOCAL: IgM antibodies to Hepatitis B Core antigen may or may not be present. Obtain a new specimen and retest. REACTIVE: IgM antibodies to Hepatitis B Core antigen detected. Hep A IgM NONREACT NONREACTIVE [facility] Comment: Siemens CentaurXP using AMY (chemiluminescent immunoassay) technology. NONREACTIVE: IgM antibodies to Hepatitis A not detected. This does not exclude possibility of exposure to Hepatitis A or early acute infection. EQUIVOCAL:IgM antibodies to Hepatitis A may or may not be present. Suggest recollection and retest. REACTIVE: Antibodies to Hepatitis A detected. Hep C Ab NONREACT NONREACTIVE [facility] Comment: Siemens CentaurXP using AMY (chemiluminescent immunoassay) [...] by real-time PCR method. 07/02/2019 5:44 AM CARD STRIPPER 07/02/2019 5:55 AM CARD STRIPPER Narrative Resulting Agency Comment IN Zeina Hart MD LAB MICROBIOLOGY - GENERAL OR DERABLES Final Result [address] [address], [facility] [phone] from Last 3 Months or Most Recently Relevant to Health Maintenance Insurance [facility] AETNA MEDICARE AETNA MEDICARE Care Teams House Servant Relationship Specialty Start Date End Date 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 NP NPI: [id number] [place] [id number] PCP - General Family Medicine 04/09/24
--- OUTSIDE RECORDS SUMMARY | 2025-03-04 11:07 | XMS_ITS | Clinical Summary ---
Author Organization [facility] Address [address] [place] [address] Care Team Providers Care Grinder Set Up Operator Name Role Phone Zhanna Wheeler MD Primary Care Provider [phone] Immunizations Immunization Administration Dates Next Due MODERNA [...] SCREENING JOHNNY DIGI Routine 07/28/2017 12:49 PM DOCK PUMPER Screening breast examination from Last 3 Months or Most Recently Relevant to Health Maintenance Results * MG SCREENING JOHNNY DIGI (07/28/2017 12:49 PM DOCK PUMPER) Anatomical Region Laterality Modality Breast Bilateral Mammography 07/28/2017 1:12 PM DOCK PUMPER Impressions 07/28/2017 1:14 PM DOCK PUMPER ===== IMPRESSION: ===== No mammographic evidence for neoplasm. Assessment: ACR BI-RADS Category 2 - Benign. Recommendation: 1: Routine screening mammogram bilateral in 1 year Comments: A negative or benign mammography report should not discourage follow-up or biopsy of a clinically significant finding and/or abnormality. Regions of dense breast tissue may obscure small neoplasms. Narrative 07/28/2017 1:14 PM DOCK PUMPER Examination: Digital bilateral screening mammogram Exam Date/Time: [...] to Health Maintenance Insurance AETNA Care Teams Grinder Set Up Operator Relationship Specialty Start Date End Date Zhanna Wheeler MD PCP - General 04/20/16
--- OUTSIDE RECORDS SUMMARY | 2025-03-04 11:07 | XMS_ITS | Patient Health Record ---
Author Organization [facility] Address [address] [place], [place] [address] Care Team Providers Care Barrel Lathe Operator Outside Name Role Phone NOLVIA Lockett Unavailable [phone] Zhanna Wheeler Unavailable Unavailable Reason For Referral No Information Plan Of Treatment No Information Insurance Providers Payer Name Payer Address Payer Phone Subscriber Number Group Number Insured Name Patient Relationship to Insured Coverage Start Date Coverage End Date Medicare Part B [place] [address] [place] [address] [id number] NILSA CHAVARRIA Self - patient is the insured [facility] [address] [place], [place] [id number] NILSA CHAVARRIA Self - patient is the insured
== END 2025-03-04 10:10 | disposition home or self-care (01) ==
LOC: ANHIMG 10:10
PROVIDERS: PCP Nurse Practitioner; Visit Provider Nurse Practitioner
DX: Z78.0 Asymptomatic menopausal state (principal)
CPT/HCPCS: 77080